=== PATIENT | female | born 1935 | race Caucasian/White ===

== ENCOUNTER 2016-09-08 22:51 | Inpatient (IN) | payer MEDICARE, BC ==
--- NOTE | 2016-09-09 00:41 | EDM.PDOC ---
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 - Related Data Allergies Allergy/AdvReac Type Severity Reaction Status Date / Time cefuroxime Allergy Rash Verified 09/09/16 00:08 ciprofloxacin Allergy Rash Verified 09/09/16 00:08 nifedipine [From Procardia] Allergy Rash Verified 09/09/16 00:08 red dye Allergy Anaphylactic Verified 09/09/16 00:08 Shock Home Meds: Home Meds Aspirin 81 mg PO BEDTIME 09/09/16 [History] Insulin Isophane NPH, Human [NovoLIN N] 8 units SUBCUT ASDIRECTED 09/09/16 [ History] Insulin Regular, Human [NovoLIN R] 10 units SUBCUT ASDIRECTED 09/09/16 [History] Lisinopril/Hydrochlorothiazide [Lisinopril-Hctz 20-12.5 mg Tab] 1 each PO DAILY 09/09/16 [History] Nitroglycerin [Nitrostat] 0.4 mg SL ASDIRECTED PRN 09/09/16 [History] Psyllium Husk [Psyllium Fiber] 0.52 gm PO DAILY 09/09/16 [History] Past Medical History Cardiovascular History: Reports: CAD, Hypertension, MS Gastrointestinal History: Reports: GI Bleed Genitourinary History: Reports: UTI, Recurrent [employer]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 ED EXAM, GENERAL - Physical Exam Exam: See Below Exam Limited By: No Limitations General Appearance: Alert, WD/WN, No Apparent Distress Eye Exam: Bilateral Eye: EOMI Ears: Normal External Exam Nose: Normal Inspection Throat/Mouth: Normal Inspection Head: Atraumatic, Normocephalic Neck: Normal Inspection Respiratory/Chest: No Respiratory Distress, Lungs Clear, Normal Breath Sounds Cardiovascular: Normal Peripheral Pulses, Regular Rate, Rhythm Peripheral Pulses: 2+: Dorsalis Pedis (L), Dorsalis Pedis (R) GI/Abdominal: Normal Bowel Sounds, Other (dark blood) Rectal (Female) Exam: Normal Exam, Normal Rectal Tone, Other (dark liquid blood , no stools) Back Exam: Normal Inspection Extremities: Normal Inspection Neurological: Alert, Oriented, CN II-XII Intact Course - Vital Signs Last Recorded V/S: Last Vital Signs Temp 36.2 C 09/08/16 23:58 Pulse 95 09/08/16 23:58 Resp 16 09/08/16 23:58 BP 196/81 H 09/08/16 23:58 Pulse Ox 100 09/08/16 23:58 - Orders/Labs/Meds Orders: Active Orders 24 hr Category Date Time Status BASIC METABOLIC PANEL,BMP [CHEM] Stat Lab 09/09/16 00:20 Received Labs: Laboratory Tests 09/09/16 09/09/16 Range/Units 00:20 00:20 WBC 8.8 (4.0-11.0) K/uL RBC 4.19 (3.80-5.80) M/uL Hgb 12.0 (11.5-16.5) g/dL Hct 36.2 L (37.0-47.0) % MCV 86 (76-96) fL MCH 28.6 (27.0-32.0) pg MCHC 33.1 (31.0-35.0) g/dL RDW 15.5 (11.0-16.0) % Plt Count 231 (150-500) K/uL MPV 9.0 (6.0-10.0) fL Neut % (Auto) 69.9 (45.0-70.0) % Lymph % (Auto) 19.6 L (20.0-40.0) % [place] % (Auto) 8.4 (3.0-10.0) % Eos % (Auto) 1.9 (1.0-5.0) % Baso % (Auto) 0.2 (0.0-0.5) % Neut # (Auto) 6.12 (2.00-7.50) K/uL Lymph # (Auto) 1.72 (1.50-4.00) K/uL [place] # (Auto) 0.74 (0.20-0.80) K/uL Eos # (Auto) 0.17 (0.04-0.40) K/uL Baso # (Auto) 0.02 (0.02-0.10) K/uL PT 10.3 (9.0-11.5) sec INR 1.0 (1.0-3.5) Departure - Departure Time of Disposition: :20 Disposition: Admitted As Inpatient 66 Condition: Good Clinical Impression: GIB (gastrointestinal bleeding) Qualifiers: GI bleed type/associated pathology: unspecified gastrointestinal hemorrhage type Qualified Code(s): K92.2 - Gastrointestinal hemorrhage, unspecified - Discharge Information Forms: ED Department Discharge - Problem List & Annotations (1) GIB (gastrointestinal bleeding) SNOMED Code(s): 66471164 Code(s): K92.2 - GASTROINTESTINAL HEMORRHAGE, UNSPECIFIED Status: Acute Priority: High Qualifiers: GI bleed type/associated pathology: unspecified gastrointestinal hemorrhage type Qualified Code(s): K92.2 - Gastrointestinal hemorrhage, unspecified - Problem List Review Problem List Initiated/Reviewed/Updated: Yes - My Orders Last 24 Hours: My Active Orders 09/09/16 00:20 BASIC METABOLIC PANEL,BMP [CHEM] Stat - Assessment/Plan Last 24 Hours: My Active Orders 09/09/16 00:20 BASIC METABOLIC PANEL,BMP [CHEM] Stat Plan: Patient to be admitted and monitored closely. Fluids at KVO as we do not want to increase her BP at this time due to the GI bleed. Vitals to be monitored closely. Blood from stools to be measured. Patient NPO tonight and will consider advancing to clear liquids in am if no further bleeding. Hold Aspirin.
[2016-09-09] MEDS ORDERED: Nitroglycerin 0.4 MG Tab.SL SL PRN (00:50)
[2016-09-09] MEDS ORDERED: INSULIN ISOPHANE NPH HUMAN SUBCUT SCH ×2 (01:00→08:00)
[2016-09-09] MEDS ORDERED: Insulin Regular, Human 100 Units/ML 3 ML Vial SUBCUT SCH (01:00)
[2016-09-09] MEDS ORDERED: Sodium Chloride 0.9% 1,000 ML IV SCH (01:30)
[2016-09-09] MEDS ORDERED: Pantoprazole 40 MG Vial IVPUSH SCH ×2 (01:30→08:00)
[2016-09-09] MEDS ORDERED: Non-Formulary Medication 1 Each (Lisinopril/Hydrochlorothiazide [Lisinopril-Hctz 20-12.5 M PO SCH (08:00)
[2016-09-09] MEDS ORDERED: INSULIN REGULAR HUMAN 100 UNIT/ML SUBCUT SCH (08:00)
--- NOTE | 2016-09-09 11:58 | PCM.DCSUM1 ---
Discharge Summary - Hospital Course Brief History: This is an 81yo F with an acute GI bleed that has continued over night and has resulted in a decrease in blood pressure. A 250mL NS bolus was given which stabilzed the BP. Patient does have some symptoms of weakness but denies any SOB or Chest pain. - Discharge Data Discharge Date: 09/09/16 (onel-sunny) Discharge Disposition: DC/Tfer to Acute Hospital 02 Condition: Fair - Discharge Diagnosis/Problem(s) (1) GIB (gastrointestinal bleeding) SNOMED Code(s): 62440017 ICD Code: K92.2 - GASTROINTESTINAL HEMORRHAGE, UNSPECIFIED Status: Acute Priority: High Current Visit: Yes Qualifiers: GI bleed type/associated pathology: unspecified gastrointestinal hemorrhage type Qualified Code(s): K92.2 - Gastrointestinal hemorrhage, unspecified - Patient Instructions Diet: NPO Activity: Rest and Relax Today - Discharge Plan Home Medications: Home Meds Aspirin 81 mg PO BEDTIME 09/09/16 [History] Insulin Isophane NPH, Human [NovoLIN N] 8 units SUBCUT ASDIRECTED 09/09/16 [ History] Insulin Regular, Human [NovoLIN R] 10 units SUBCUT ASDIRECTED 09/09/16 [History] Lisinopril/Hydrochlorothiazide [Lisinopril-Hctz 20-12.5 mg Tab] 1 each PO DAILY 09/09/16 [History] Nitroglycerin [Nitrostat] 0.4 mg SL ASDIRECTED PRN 09/09/16 [History] Psyllium Husk [Psyllium Fiber] 0.52 gm PO DAILY 09/09/16 [History] Forms: ED Department Discharge Referrals: PCP,None [Primary Care Provider] - - Discharge Summary/Plan Comment DC Time >30 min.: Yes Discharge Summary/Plan Comment: Patient transfer to [facility] for further surgical/GI management. Counseled on indications and answered all family and patient questions. Patient and family agree with plan of care. - Patient Data Vitals - Most Recent: Last Vital Signs Temp 36.6 C 09/09/16 11:00 Pulse 77 09/09/16 11:00 Resp 20 09/09/16 11:00 BP 119/34 L 09/09/16 11:00 Pulse Ox 100 09/09/16 11:00 Weight - Most Recent: 104.145 kg I&O - Last 24 hours: Intake & Output 09/08/16 09/09/16 09/09/16 22:59 06:59 14:59 Output Total 500 Balance -500 Lab Results - Last 24 hrs: Laboratory Results - last 24 hr 09/09/16 09/09/16 Range/Units 06:47 08:45 WBC 6.2 D (4.0-11.0) K/uL RBC 3.70 L (3.80-5.80) M/uL Hgb 10.7 L (11.5-16.5) g/dL Hct 32.3 L (37.0-47.0) % MCV 87 (76-96) fL MCH 28.9 (27.0-32.0) pg MCHC 33.1 (31.0-35.0) g/dL RDW 15.6 (11.0-16.0) % Plt Count 223 (150-500) K/uL MPV 9.4 (6.0-10.0) fL Neut % (Auto) 59.2 (45.0-70.0) % Lymph % (Auto) 29.7 (20.0-40.0) % [place] % (Auto) 8.7 (3.0-10.0) % Eos % (Auto) 1.9 (1.0-5.0) % Baso % (Auto) 0.5 (0.0-0.5) % Neut # (Auto) 3.66 (2.00-7.50) K/uL Lymph # (Auto) 1.84 (1.50-4.00) K/uL [place] # (Auto) 0.54 (0.20-0.80) K/uL Eos # (Auto) 0.12 (0.04-0.40) K/uL Baso # (Auto) 0.03 (0.02-0.10) K/uL POC Glucose 192 H (74-110) mg/dL Med Orders - Current: Current Medications Sodium Chloride (Normal Saline) 1,000 mls @ 0 mls/hr IV ASDIRECTED [facility] PRN Reason: KVO Insulin Human Regular (Humulin R) 10 unit SUBCUT BID@0800,1700 [facility] PRN Reason: Protocol Last Admin: 09/09/16 08:15 Dose: Not Given Nitroglycerin (Nitrostat) 0.4 mg SL ASDIRECTED PRN PRN Reason: Chest Pain Non-Formulary Medication (Insulin Isophane Nph, Human [Novolin N]) 8 units SUBCUT ASDIRECTED [facility] Non-Formulary Medication (Lisinopril/Hydrochlorothiazide [Lisinopril-Hctz 20- 12.5 Mg Tab]) 1 each PO DAILY [facility] Last Admin: 09/09/16 08:14 Dose: Not Given Non-Formulary Medication (Insulin Isophane Nph, Human [Novolin N]) 8 units SUBCUT BID@0800,1700 [facility] Last Admin: 09/09/16 08:15 Dose: Not Given Pantoprazole Sodium (Protonix Iv) 40 mg IVPUSH Q12H [facility] Last Admin: 09/09/16 07:58 Dose: 40 mg Discontinued Medications Insulin Human Regular (Humulin R) 10 unit SUBCUT ASDIRECTED [facility]Y PRN Reason: Protocol Pantoprazole Sodium (Protonix Iv) 40 mg IVPUSH Q12H [facility] Last Admin: 09/09/16 02:15 Dose: 40 mg *Q Meaningful Use (DIS) - VTE *Q VTE Criteria *Q: - Stroke *Q Stroke Criteria *Q: - AMI *Q AMI Criteria *Q:
[2016-09-09 13:23] VITALS: BP 161/45
== END 2016-09-09 13:15 | DRG 379 ==
LOC: LB.ED 22:51 → LB.MS 09-09 00:44 → UNDOADMIN 09-09 00:57 → LB.MS 09-09 00:57
PROVIDERS: ADMIT Family Medicine; ATTEND Family Medicine
DX: K92.2 Gastrointestinal hemorrhage, unspecified (principal); I10 Essential (primary) hypertension; I25.10 Atherosclerotic heart disease of native coronary artery without angina pectoris; E11.9 Type 2 diabetes mellitus without complications; Z79.4 Long term (current) use of insulin; I25.2 Old myocardial infarction; Z87.440 Personal history of urinary (tract) infections; M19.90 Unspecified osteoarthritis, unspecified site; Z85.42 Personal history of malignant neoplasm of other parts of uterus; Z79.82 Long term (current) use of aspirin; Z88.1 Allergy status to other antibiotic agents; Z91.041 Radiographic dye allergy status; Z88.8 Allergy status to other drugs, medicaments and biological substances; I95.9 Hypotension, unspecified
CPT/HCPCS: 36415; 80048; 82962; 85025; 85610; 86850; 86900; 86901; 86920; 86922; 99285; A0425; A0429; C9113

== ENCOUNTER 2016-10-17 03:42 | Emergency (ER) | payer MEDICARE, BC ==
[~2016-10-17 03:42] MED LIST: ALPRAZolam 0.25 MG Tab PO ONE
--- NOTE | 2016-10-17 04:38 | EDM.PDOC ---
ED HPI GENERAL MEDICAL PROBLEM - General Chief Complaint: Chest Pain Stated Complaint: CHEST PAIN Time Seen by Provider: 10/17/16 03:45 Source of Information: Reports: Patient, Family History Limitations: Reports: No Limitations - History of Present Illness INITIAL COMMENTS - FREE TEXT/NARRATIVE: This is an 81yo F here for complaints of chest pain. Patient states the pain is under her left breast. She has had recent cardiac workup and is pending an EGD and if clear will go for heart stenting in [place]. Patient states she has felt shortness of breath sometimes but not currently and has had a fast heart rate for the past week especially since her passed last . Daughter states that she has been diagnosed with A-fib and is not on any blood thinners due to her recent GI bleed. Daughter states her heart rate has been around this range since her prior workup. Patient does have prior CT history in the 's. Patient denies any current sob or lightheadedness but does state she is anxious and stressed as she is planning her husbands . Onset: Gradual Duration: Day(s):, Getting Worse, Intermittent Location: Reports: Chest Quality: Reports: Sharp Severity: Mild Improves with: Reports: None Worsens with: Reports: Movement Associated Symptoms: Reports: No Other Symptoms Left Lower Chest Pain Score (Numeric/FACES): 8 - Related Data Allergies Allergy/AdvReac Type Severity Reaction Status Date / Time cefuroxime Allergy Rash Verified 10/17/16 04:07 ciprofloxacin Allergy Rash Verified 10/17/16 04:07 nifedipine [From Procardia] Allergy Rash Verified 10/17/16 04:07 red dye Allergy Anaphylactic Verified 10/17/16 04:08 Shock Home Meds: Home Meds Aspirin 81 mg PO BEDTIME 09/09/16 [History] Insulin Isophane NPH, Human [NovoLIN N] 8 units SUBCUT ASDIRECTED 09/09/16 [ History] Insulin Regular, Human [NovoLIN R] 10 units SUBCUT ASDIRECTED 09/09/16 [History] Lisinopril/Hydrochlorothiazide [Lisinopril-Hctz 20-12.5 mg Tab] 1 each PO DAILY 09/09/16 [History] Nitroglycerin [Nitrostat] 0.4 mg SL ASDIRECTED PRN 09/09/16 [History] Psyllium Husk [Psyllium Fiber] 0.52 gm PO DAILY 09/09/16 [History] Past Medical History Cardiovascular History: Reports: CAD, Hypertension, CT Gastrointestinal History: Reports: GI Bleed Genitourinary History: Reports: UTI, 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 ED EXAM, GENERAL - Physical Exam Exam: See Below Exam Limited By: No Limitations General Appearance: Alert, WD/WN, No Apparent Distress Eye Exam: Bilateral Eye: EOMI, PERRL Ears: Normal External Exam Nose: Normal Inspection Throat/Mouth: Normal Inspection Head: Atraumatic, Normocephalic Neck: Normal Inspection Respiratory/Chest: No Respiratory Distress, Lungs Clear, Rhonchi Cardiovascular: Irregularly Irregular Peripheral Pulses: 2+: Dorsalis Pedis (L), Dorsalis Pedis (R) GI/Abdominal: Normal Bowel Sounds Neurological: Alert, Oriented, CN II-XII Intact Psychiatric: Anxious Skin Exam: Warm, Dry, Intact Course - Vital Signs Last Recorded V/S: Last Vital Signs Temp Pulse Resp BP Pulse Ox 98 10/17/16 04:11 - Orders/Labs/Meds Labs: Laboratory Tests 10/17/16 10/17/16 Range/Units 04:10 04:10 WBC 8.6 D (4.0-11.0) K/uL RBC 3.73 L (3.80-5.80) M/uL Hgb 10.4 L (11.5-16.5) g/dL Hct 32.1 L (37.0-47.0) % MCV 86 (76-96) fL MCH 27.9 (27.0-32.0) pg MCHC 32.4 (31.0-35.0) g/dL RDW 15.5 (11.0-16.0) % Plt Count 215 (150-500) K/uL MPV 9.7 (6.0-10.0) fL Neut % (Auto) 69.5 (45.0-70.0) % Lymph % (Auto) 19.4 L (20.0-40.0) % [place] % (Auto) 10.3 H (3.0-10.0) % Eos % (Auto) 0.5 L (1.0-5.0) % Baso % (Auto) 0.3 (0.0-0.5) % Neut # (Auto) 5.99 (2.00-7.50) K/uL Lymph # (Auto) 1.67 (1.50-4.00) K/uL [place] # (Auto) 0.89 H (0.20-0.80) K/uL Eos # (Auto) 0.04 (0.04-0.40) K/uL Baso # (Auto) 0.03 (0.02-0.10) K/uL Sodium 136 (136-145) mmol/L Potassium 3.8 (3.5-5.1) mmol/L Chloride 100 (98-107) mmol/L Carbon Dioxide 24.0 (21.0-32.0) mmol/L Anion Gap 15.8 H (5.0-15.0) mmol/L BUN 20 (8-26) mg/dL Creatinine 1.01 (0.55-1.02) mg/dL Est Cr Clr Drug Dosing TNP Estimated GFR (MDRD) 52 L (>60) MLS/MIN BUN/Creatinine Ratio 19.8 (6-25) Glucose 194 H (74-100) mg/dL Calcium 8.6 (8.5-10.1) mg/dL Troponin I < 0.017 (0.000-0.060) ng/mL Departure - Departure Time of Disposition: 05:15 Disposition: Home, Self-Care 01 Condition: Good Clinical Impression: History of CT (myocardial infarction), Grieving Intercostal muscle strain Qualifiers: Encounter type: initial encounter Qualified Code(s): S29.011A - Strain of muscle and tendon of front wall of thorax, initial encounter Atrial fibrillation Qualifiers: Atrial fibrillation type: chronic Qualified Code(s): I48.2 - Chronic atrial fibrillation Instructions: Nonspecific Chest Pain, [id number], Pleurodynia Forms: ED Department Discharge - Problem List Review Problem List Initiated/Reviewed/Updated: Yes - Assessment/Plan Plan: Counseled on continue f/u with providers from [place] as scheduled. Discussed negative labs and anemia. Discussed continue monitoring for further symptoms. Discussed intercostal muscle pain and rest and relax at home. F/u as needed in ER. Continue current medications as prescribed without changes.
[2016-10-17 07:49] VITALS: BP 121/56
== END 2016-10-17 05:05 | disposition home or self-care (01) ==
LOC: LB.ED 03:42
DX: S29.011A Strain of muscle and tendon of front wall of thorax, initial encounter (principal); I48.2 Chronic atrial fibrillation; I25.10 Atherosclerotic heart disease of native coronary artery without angina pectoris; M19.90 Unspecified osteoarthritis, unspecified site; E11.9 Type 2 diabetes mellitus without complications; I10 Essential (primary) hypertension; I25.2 Old myocardial infarction; Z88.8 Allergy status to other drugs, medicaments and biological substances; Z79.82 Long term (current) use of aspirin; Z79.4 Long term (current) use of insulin; Z79.899 Other long term (current) drug therapy; Z87.440 Personal history of urinary (tract) infections; X58.XXXA Exposure to other specified factors, initial encounter
CPT/HCPCS: 36415; 80048; 84484; 85025; 93005; 99284; 99285; A9270

== ENCOUNTER 2016-10-31 14:53 | Inpatient (IN) | payer MEDICARE, BC ==
--- NOTE | 2016-10-31 15:31 | EDM.PDOC ---
ED HPI GENERAL MEDICAL PROBLEM - General Chief Complaint: Gastrointestinal Problem Stated Complaint: blood to stool and weakness Time Seen by Provider: 10/31/16 15:15 Source of Information: Reports: Patient, Family History Limitations: Reports: No Limitations - History of Present Illness INITIAL COMMENTS - FREE TEXT/NARRATIVE: This 81 yr female presents with weakness, blood to stool, and daughter states some change in mentation. Daughter states stent placement to 1 cardiac artery. States history of bleeding ulcer about 1 week ago, when this stopped, she had her cardiac stent placement 10-30-2016 at 1147. She was on her way home and got in drive and daughter noted blood to stool coming from depends and she came to ER at this time. Pt is alert and weak. Heart rate on monitor shows 94 with sinus arrhythmia. 330 Lab ordered: CMP, CBC, PT/INR, IV ordered Nacl @100cc/hr. Onset Date: 10/31/16 Onset Time: 15:00 Associated Symptoms: Reports: Other ("heavy breathing", per daughter) - Related Data Allergies Allergy/AdvReac Type Severity Reaction Status Date / Time cefuroxime Allergy Rash Verified 10/17/16 04:07 ciprofloxacin Allergy Rash Verified 10/17/16 04:07 glipizide Allergy Other Verified 10/31/16 15:23 iodine Allergy Hives Verified 10/31/16 15:23 nifedipine [From Procardia] Allergy Rash Verified 10/17/16 04:07 omeprazole [From Prilosec] Allergy Other Verified 10/31/16 15:23 red dye Allergy Anaphylactic Verified 10/17/16 04:08 Shock Home Meds: Home Meds Insulin Isophane NPH, Human [NovoLIN N] 8 units SUBCUT BID 09/09/16 [History] Insulin Regular, Human [NovoLIN R] 10 units SUBCUT ASDIRECTED 09/09/16 [History] Lisinopril/Hydrochlorothiazide [Lisinopril-Hctz 20-12.5 mg Tab] 12.5 - 20 each PO DAILY 09/09/16 [History] Aspirin [Lite Coat Aspirin] 325 mg PO DAILY 10/31/16 [History] Clopidogrel Bisulfate [Clopidogrel] 75 mg PO DAILY 10/31/16 [History] Cyanocobalamin (Vitamin B-12) [B-12] 2,500 mg PO DAILY 10/31/16 [History] Ferrous Sulfate [Iron] 325 mg PO BID 10/31/16 [History] Insulin NPH Human Isophane [Humulin N Kwikpen] 10 units SQ BID 10/31/16 [History ] Isosorbide Mononitrate [Isosorbide Mononitrate ER] 30 mg PO DAILY 10/31/16 [ History] Lutein/Minerals/Vit A,C & E [Ocuvite] 1 tab PO DAILY 10/31/16 [History] Magnesium Oxide [Magnesium] 400 mg PO DAILY 10/31/16 [History] Metoprolol Succinate [Toprol XL 100mg] 100 mg PO DAILY 10/31/16 [History] Multivitamin [Super Multivitamin] 1 each PO DAILY 10/31/16 [History] Nitroglycerin 0.4 mg SL ASDIRECTED PRN 10/31/16 [History] Pantoprazole [ProTONIX] 40 mg PO DAILY 10/31/16 [History] atorvaSTATin [Lipitor] 40 mg PO BEDTIME 10/31/16 [History] traMADol [Ultram] 50 mg PO DAILY 10/31/16 [History] Past Medical History Cardiovascular History: Reports: CAD, Hypertension, [place] Gastrointestinal History: Reports: GI Bleed Genitourinary History: Reports: UTI, Recurrent [employer] History: Reports: Musculoskeletal History: Reports: Osteoarthritis Endocrine/Metabolic History: Reports: IDDM Hematologic History: Reports: Anemia, Blood Transfusion(s) Oncologic (Cancer) History: Reports: Metastatic, Uterine - Past Surgical History Oncologic Surgical History: Reports: None Social & Family History - Tobacco Use Smoking Status *Q: Never Smoker Second Hand Smoke Exposure: No - Caffeine Use Caffeine Use: Reports: Tea - Recreational Drug Use Recreational Drug Use: No ED ROS GENERAL - Review of Systems Review Of Systems: See Below Constitutional: Reports: Weakness HEENT: Reports: No Symptoms Respiratory: Reports: Other (labored breathing, daughter states may be from medicine given at [place]) Cardiovascular: Reports: Dyspnea on Exertion Endocrine: Reports: Other (diabetic) GI/Abdominal: Reports: Diarrhea, Hematochezia, Other (Recent GI bleed) : Reports: Incontinence Musculoskeletal: Reports: No Symptoms Psychiatric: Reports: No Symptoms Hematologic/Lymphatic: Reports: Easy Bleeding ED EXAM, GI/ABD - Physical Exam Exam: See Below Exam Limited By: No Limitations General Appearance: Alert, No Apparent Distress, Lethargic Eyes: Bilateral: Normal Appearance Ears: Normal External Exam Nose: Normal Inspection Throat/Mouth: No Airway Compromise Head: Atraumatic, Normocephalic Neck: Normal Inspection, Non-Tender Respiratory/Chest: No Respiratory Distress, Lungs Clear Cardiovascular: Normal Peripheral Pulses, Other GI/Abdominal Exam: Normal Bowel Sounds, Soft, No Distention, Tender (Female) Exam: Deferred Extremities: Normal Capillary Refill, Pedal Edema Neurological: Alert, Normal Cognition Psychiatric: Normal Affect Skin Exam: Warm, Dry, Normal Color Course - Vital Signs Last Recorded V/S: Last Vital Signs Temp 98.0 F 10/31/16 15:53 Pulse 90 10/31/16 15:53 Resp BP 102/55 L 10/31/16 15:53 Pulse Ox 99 10/31/16 15:53 - Orders/Labs/Meds Orders: Active Orders 24 hr Category Date Time Status Sodium Chloride 0.9% [Normal Saline] 1,000 ml Med 10/31/16 15:30 Active IV ASDIRECTED Medication Orders Atorvastatin Calcium (Lipitor) 40 mg PO BEDTIME [facility] Clopidogrel Bisulfate (Plavix) 75 mg PO DAILY [facility] Ferrous Sulfate (Ferrous Sulfate) 325 mg PO BID [facility] Sodium Chloride (Normal Saline) 1,000 mls @ 100 mls/hr IV ASDIRECTED [facility] Last Admin: 10/31/16 16:02 Dose: 100 mls/hr Pantoprazole Sodium 80 mg/ (Sodium Chloride) 100 mls @ 200 mls/hr IV Q24H [facility] Isosorbide Mononitrate (Imdur) 30 mg PO DAILY [facility] Metoprolol Succinate (Toprol Xl) 100 mg PO DAILY [facility] Multivitamins/Minerals (Ocuvite) 1 each PO DAILY [facility] Nitroglycerin (Nitrostat) 0.4 mg SL ASDIRECTED PRN PRN Reason: Chest Pain Non-Formulary Medication (Cyanocobalamin (Vitamin B-12) [B-12]) 2,500 mg PO DAILY [facility] Non-Formulary Medication (Insulin Nph Human Isophane [Humulin N Kwikpen]) 10 units SQ BID [facility] Non-Formulary Medication (Magnesium Oxide [Magnesium]) 400 mg PO DAILY [facility] Non-Formulary Medication (Multivitamin [Super Multivitamin]) 1 each PO DAILY [facility] Sodium Chloride (Saline Flush) 10 ml FLUSH ASDIRECTED PRN PRN Reason: Keep Vein Open Tramadol HCl (Ultram) 50 mg PO DAILY [facility] Labs: Laboratory Tests 10/31/16 10/31/16 10/31/16 Range/Units 15:35 15:35 15:35 WBC 6.6 D (4.0-11.0) K/uL RBC 3.96 (3.80-5.80) M/uL Hgb 10.9 L (11.5-16.5) g/dL Hct 34.6 L (37.0-47.0) % MCV 87 (76-96) fL MCH 27.5 (27.0-32.0) pg MCHC 31.5 (31.0-35.0) g/dL RDW 16.4 H (11.0-16.0) % Plt Count 283 D (150-500) K/uL MPV 9.5 (6.0-10.0) fL Neut % (Auto) 66.5 (45.0-70.0) % Lymph % (Auto) 24.2 (20.0-40.0) % [place] % (Auto) 8.3 (3.0-10.0) % Eos % (Auto) 0.5 L (1.0-5.0) % Baso % (Auto) 0.5 (0.0-0.5) % Neut # (Auto) 4.41 (2.00-7.50) K/uL Lymph # (Auto) 1.60 (1.50-4.00) K/uL [place] # (Auto) 0.55 (0.20-0.80) K/uL Eos # (Auto) 0.03 L (0.04-0.40) K/uL Baso # (Auto) 0.03 (0.02-0.10) K/uL PT 10.8 (9.0-11.5) sec INR 1.1 (1.0-3.5) APTT 20.1 L (27.0-35.0) SECONDS Sodium 138 (136-145) mmol/L Potassium 4.1 (3.5-5.1) mmol/L Chloride 103 (98-107) mmol/L Carbon Dioxide 26.0 (21.0-32.0) mmol/L Anion Gap 13.1 (5.0-15.0) mmol/L BUN 19 (8-26) mg/dL Creatinine 1.24 H D (0.55-1.02) mg/dL Est Cr Clr Drug Dosing 33.43 mL/min Estimated GFR (MDRD) 41 L (>60) MLS/MIN BUN/Creatinine Ratio 15.3 (6-25) Glucose 224 H (74-100) mg/dL Calcium 8.8 (8.5-10.1) mg/dL Total Bilirubin 0.3 (0.0-1.0) mg/dL AST 23 (15-37) U/L ALT 24 (12-78) U/L Alkaline Phosphatase 84 (46-116) U/L Total Protein 7.0 (6.4-8.2) g/dL Albumin 3.3 L (3.4-5.0) g/dL Globulin 3.7 (2.2-4.2) g/dL Albumin/Globulin Ratio 0.9 (0.8-2.0) Meds: Medications Generic Name Dose Route Start Last Admin Trade Name Freq PRN Reason Stop Dose Admin Atorvastatin Calcium 40 mg 10/31/16 20:00 Lipitor PO BEDTIME [facility] Clopidogrel Bisulfate 75 mg 11/01/16 08:00 Plavix PO DAILY [facility] Ferrous Sulfate 325 mg 11/01/16 08:00 Ferrous Sulfate PO BID [facility] Sodium Chloride 1,000 mls @ 100 mls/hr 10/31/16 15:30 10/31/16 16:02 Normal Saline IV 100 mls/hr ASDIRECTED AMY Administration Pantoprazole Sodium 80 mg/ 100 mls @ 200 mls/hr 11/01/16 08:00 Sodium Chloride IV Q24H [facility] Isosorbide Mononitrate 30 mg 11/01/16 08:00 Imdur PO DAILY [facility] Metoprolol Succinate 100 mg 11/01/16 08:00 Toprol Xl PO DAILY [facility] Multivitamins/Minerals 1 each 11/01/16 08:00 Ocuvite PO DAILY [facility] Nitroglycerin 0.4 mg 10/31/16 17:04 Nitrostat SL ASDIRECTED PRN Chest Pain Non-Formulary Medication 2,500 mg 11/01/16 08:00 Cyanocobalamin (Vitamin B-12) [B-12] PO DAILY [facility] Non-Formulary Medication 10 units 10/31/16 20:00 Insulin Nph Human Isophane [Humulin N Kwikpen] SQ BID AMY Non-Formulary Medication 400 mg 11/01/16 08:00 Magnesium Oxide [Magnesium] PO DAILY [facility] Non-Formulary Medication 1 each 11/01/16 08:00 Multivitamin [Super Multivitamin] PO DAILY [facility] Sodium Chloride 10 ml 10/31/16 16:58 Saline Flush FLUSH ASDIRECTED PRN Keep Vein Open Tramadol HCl 50 mg 11/01/16 08:00 Ultram PO DAILY AMY Discontinued Medications Generic Name Dose Route Start Last Admin Trade Name Freq PRN Reason Stop Dose Admin Pantoprazole Sodium Confirm 10/31/16 15:57 10/31/16 16:02 Protonix Iv Administered 10/31/16 15:58 40 mg Dose Administration 40 mg .ROUTE .STK-MED ONE Departure - Departure Time of Disposition: 17:00 Disposition: Admitted As Inpatient 64 Condition: Fair Clinical Impression: Diarrhea GIB (gastrointestinal bleeding) Qualifiers: GI bleed type/associated pathology: unspecified gastrointestinal hemorrhage type Qualified Code(s): K92.2 - Gastrointestinal hemorrhage, unspecified - Discharge Information ED Communication - Discussed Case With (1) Discussed Case With (1): Patient, Other (daughter) - Conversation Summary Summary Comment: [address]iscuss[address] pt case with Dr Chantal MD, back-up accounting consultant. Assessment completed with consult of Dr Cornejo. Discussion with pt and daughter of pt status with GI bleed and weakness, will admit to inpatient. IV fluids, medications as ordered, ASA on hold, continue with insulin, clear fluids. Pt and daughter in agreeement with plan of admission. - My Orders Last 24 Hours: My Active Orders 10/31/16 15:30 Sodium Chloride 0.9% [Normal Saline] 1,000 ml IV ASDIRECTED - Assessment/Plan Last 24 Hours: My Active Orders 10/31/16 15:30 Sodium Chloride 0.9% [Normal Saline] 1,000 ml IV ASDIRECTED
[2016-10-31] MEDS ORDERED: Pantoprazole 40 MG Vial ONE (15:57)
[2016-10-31] MEDS: Sodium Chloride 0.9% 1,000 ML IV SCH (16:02)
[2016-10-31] MEDS ORDERED: Sodium Chloride 0.9% 10 ML Syringe FLUSH PRN (16:58)
[2016-10-31] MEDS ORDERED: Nitroglycerin 0.4 MG Tab.SL SL PRN (17:04)
[2016-10-31] MEDS ORDERED: Pantoprazole 40 MG Vial IVPUSH ONE (18:16)
[2016-10-31] MEDS: atorvaSTATin 40 MG Tab PO SCH (21:35)
[2016-10-31] MEDS: INSULIN NPH HUMAN ISOPHANE SQ SCH (22:09)
[2016-10-31] MEDS: Octreotide 50 MCG/1 ML Amp IVPUSH SCH (22:21)
[2016-11-01] MEDS: Sodium Chloride 0.9% 1,000 ML IV SCH (00:52)
[2016-11-01] MEDS ORDERED: Lutein/Minerals/Vitamins A, C & E Tab PO SCH (08:00)
[2016-11-01] MEDS ORDERED: Non-Formulary Medication 1 Each (Magnesium Oxide [Magnesium] 400 MG) PO SCH (08:00)
[2016-11-01] MEDS ORDERED: MULTIVITAMIN PO SCH (08:00)
[2016-11-01] MEDS ORDERED: CYANOCOBALAMIN PO SCH (08:00)
[2016-11-01] MEDS: Isosorbide Mononitrate 30 MG Tab.ER PO SCH (08:24)
[2016-11-01] MEDS: Metoprolol Succinate 100 MG Tab.ER PO SCH (08:24)
[2016-11-01] MEDS: traMADol 50 MG Tab PO SCH (08:25)
[2016-11-01] MEDS: Magnesium Oxide 400 MG Tab PO SCH (08:25)
[2016-11-01] MEDS: Ferrous Sulfate 325 MG Tab PO SCH ×2 (08:25→20:14)
[2016-11-01] MEDS: Multivitamins with Iron/Calcium/Folic Acid/Minerals Tab PO SCH (08:25)
[2016-11-01] MEDS: Clopidogrel 75 MG Tab PO SCH (08:27)
[2016-11-01] MEDS: Cyanocobalamin (Vitamin B12) 1,000 MCG Tab PO SCH (08:27)
[2016-11-01] MEDS: INSULIN NPH HUMAN ISOPHANE SQ SCH (08:27)
[2016-11-01] MEDS: Octreotide 50 MCG/1 ML Amp IVPUSH SCH ×2 (08:28→20:00)
[2016-11-01] MEDS: Pantoprazole 80 MG in Sodium Chloride 0.9% 100 ML IV SCH (08:40)
--- NOTE | 2016-11-01 08:42 | PCM.PN ---
- General Info Date of Service: 11/01/16 Admission Dx/Problem (Free Text): This 81 yr female presented with blood in her stool and weakness yesterday, to the ER. Her daughter was bringing her back from [facility] post cardiac stent. Subjective Update: Pt states she slept well and no more loose stools and no more bleeding noted. States her abdomen feels good today and a little hungry. States she has been up walking some, but continues with weakness. Functional Status: Reports: Pain Controlled, Ambulating, Urinating - Review of Systems General: Reports: Weakness. Denies: Fever Gastrointestinal: Denies: Abdominal Pain, Diarrhea, Hematochezia, Nausea, Vomiting - Patient Data Vitals - Most Recent: Last Vital Signs Temp 97.4 F 11/01/16 04:00 Pulse 90 11/01/16 08:24 Resp 20 11/01/16 04:00 BP 122/62 11/01/16 08:24 Pulse Ox 99 11/01/16 04:00 Weight - Most Recent: 220 lb I&O - Last 24 Hours: Intake & Output 10/31/16 11/01/16 11/01/16 22:59 06:59 14:59 Intake Total 1615 Output Total 400 Balance 1215 Lab Results Last 24 Hours: Laboratory Results - last 24 hr 11/01/16 11/01/16 Range/Units 07:15 07:15 WBC 6.1 (4.0-11.0) K/uL RBC 4.15 (3.80-5.80) M/uL Hgb 11.5 (11.5-16.5) g/dL Hct 36.1 L (37.0-47.0) % MCV 87 (76-96) fL MCH 27.7 (27.0-32.0) pg MCHC 31.9 (31.0-35.0) g/dL RDW 16.3 H (11.0-16.0) % Plt Count 271 (150-500) K/uL MPV 9.6 (6.0-10.0) fL Neut % (Auto) 61.9 (45.0-70.0) % Lymph % (Auto) 27.7 (20.0-40.0) % [place] % (Auto) 9.1 (3.0-10.0) % Eos % (Auto) 0.8 L (1.0-5.0) % Baso % (Auto) 0.5 (0.0-0.5) % Neut # (Auto) 3.76 (2.00-7.50) K/uL Lymph # (Auto) 1.68 (1.50-4.00) K/uL [place] # (Auto) 0.55 (0.20-0.80) K/uL Eos # (Auto) 0.05 (0.04-0.40) K/uL Baso # (Auto) 0.03 (0.02-0.10) K/uL Sodium 143 (136-145) mmol/L Potassium 4.0 (3.5-5.1) mmol/L Chloride 107 (98-107) mmol/L Carbon Dioxide 26.2 (21.0-32.0) mmol/L Anion Gap 13.8 (5.0-15.0) mmol/L BUN 14 D (8-26) mg/dL Creatinine 1.00 (0.55-1.02) mg/dL Est Cr Clr Drug Dosing 41.45 mL/min Estimated GFR (MDRD) 53 L (>60) MLS/MIN BUN/Creatinine Ratio 14.0 (6-25) Glucose 124 H D (74-100) mg/dL Calcium 8.7 (8.5-10.1) mg/dL Med Orders - Current: Current Medications Atorvastatin Calcium (Lipitor) 40 mg PO BEDTIME [facility] Last Admin: 10/31/16 21:35 Dose: 40 mg Clopidogrel Bisulfate (Plavix) 75 mg PO DAILY [facility] Last Admin: 11/01/16 08:27 Dose: 75 mg Cyanocobalamin (Vitamin B12) 2,500 mcg PO DAILY [facility] Last Admin: 11/01/16 08:27 Dose: 2,500 mcg Ferrous Sulfate (Ferrous Sulfate) 325 mg PO BID [facility] Last Admin: 11/01/16 08:25 Dose: 325 mg Sodium Chloride (Normal Saline) 1,000 mls @ 100 mls/hr IV ASDIRECTED [facility] Last Admin: 11/01/16 00:52 Dose: 100 mls/hr Pantoprazole Sodium 80 mg/ (Sodium Chloride) 100 mls @ 200 mls/hr IV Q24H [facility] Insulin Human NPH (Humulin N) 10 unit SUBCUT BID [facility] Isosorbide Mononitrate (Imdur) 30 mg PO DAILY [facility] Last Admin: 11/01/16 08:24 Dose: 30 mg Magnesium Oxide (Magnesium Oxide) 400 mg PO DAILY [facility] Last Admin: 11/01/16 08:25 Dose: 400 mg Metoprolol Succinate (Toprol Xl) 100 mg PO DAILY [facility] Last Admin: 11/01/16 08:24 Dose: 100 mg Multivitamins/Minerals (Thera M Plus) 1 tab PO DAILY [facility] Last Admin: 11/01/16 08:25 Dose: 1 tab Nitroglycerin (Nitrostat) 0.4 mg SL ASDIRECTED PRN PRN Reason: Chest Pain Octreotide Acetate (Sandostatin) 50 mcg IVPUSH BID [facility] Last Admin: 11/01/16 08:28 Dose: 50 mcg Sodium Chloride (Saline Flush) 10 ml FLUSH ASDIRECTED PRN PRN Reason: Keep Vein Open Tramadol HCl (Ultram) 50 mg PO DAILY [facility] Last Admin: 11/01/16 08:25 Dose: 50 mg Discontinued Medications Multivitamins/Minerals (Ocuvite) 1 each PO DAILY [facility] Non-Formulary Medication (Insulin Nph Human Isophane [Humulin N Kwikpen]) 10 units SQ BID [facility] Last Admin: 11/01/16 08:27 Dose: 10 units Pantoprazole Sodium (Protonix Iv) Confirm Administered Dose 40 mg .ROUTE .STK -MED ONE Stop: 10/31/16 15:58 Last Admin: 10/31/16 16:02 Dose: 40 mg Pantoprazole Sodium (Protonix Iv) 40 mg IVPUSH ONETIME ONE Stop: 10/31/16 18:17 Last Admin: 10/31/16 18:19 Dose: Not Given - Exam General: Alert, Oriented Lungs: Clear to Auscultation, Decreased Breath Sounds Cardiovascular: Regular Rate GI/Abdominal Exam: Normal Bowel Sounds, Soft, Non-Tender, No Distention. No: Rigid, Tender Extremities: Normal Capillary Refill, Pedal Edema. No: Joint Swelling, Leg Pain , Increased Warmth Peripheral Pulses: 2+: Dorsalis Pedis (L), Dorsalis Pedis (R) Skin: Warm, Dry, Intact Psy/Mental Status: Alert, Normal Affect - Problem List & Annotations (1) GIB (gastrointestinal bleeding) SNOMED Code(s): 01754315 Code(s): K92.2 - GASTROINTESTINAL HEMORRHAGE, UNSPECIFIED Status: Acute Priority: High Current Visit: Yes Onset Date: ~10/31/16 Qualifiers: GI bleed type/associated pathology: unspecified gastrointestinal hemorrhage type Qualified Code(s): K92.2 - Gastrointestinal hemorrhage, unspecified - Problem List Review Problem List Initiated/Reviewed/Updated: Yes - My Orders Last 24 Hours: My Active Orders 10/31/16 16:58 Patient Status [ADT] Routine Blood Glucose Check, Bedside [RC] 08,12,17,20 Oxygen Therapy [RC] PRN Up With Assistance [RC] ASDIRECTED VTE/DVT Education [RC] Per Unit Routine Vital Signs [RC] Q4H Sodium Chloride 0.9% [Saline Flush] 10 ml FLUSH ASDIRECTED PRN Peripheral IV Insertion Adult [OM.PC] Routine 10/31/16 17:04 Nitroglycerin [Nitrostat] 0.4 mg SL ASDIRECTED PRN 10/31/16 20:00 Octreotide [SandoSTATIN] 50 mcg IVPUSH BID atorvaSTATin [Lipitor] 40 mg PO BEDTIME 10/31/16 Dinner Clear Liquid Diet [DIET] 11/01/16 05:11 Abdomen 1V Flat [CR] AM 11/01/16 08:00 Clopidogrel [Plavix] 75 mg PO DAILY Ferrous Sulfate 325 mg PO BID Isosorbide Mononitrate [Imdur] 30 mg PO DAILY Metoprolol Succinate [Toprol XL] 100 mg PO DAILY Pantoprazole [ProTONIX IV] 80 mg Sodium Chloride 0.9% [Normal Saline] 100 ml IV Q24H traMADol [Ultram] 50 mg PO DAILY - Assessment Assessment:: Weakness continues and decrease bowel sounds. Pt is alert and states she has ambulated in the room today. She is taking water with her medications and hasn' t ate since yesterday. She is getting her am insulin and will have clear liquids for the am. - Plan Plan:: No more loose stools since last evening. No abdominal tenderness. Advance clear liquids to full liquids for lunch, if she tolerates clear liquids well. Change Normal Saline IV rate to 50cc/hr after lunch today, if pt tolerating fluids ok. Continue with IV pepcid and start Octreotide today. If weakness improves and no more blood to stools, will discharge tomorrow. Pt in agreement to this plan.
--- NOTE | 2016-11-01 13:15 | PCM.PN ---
[id number] with blood in her stool and weakness yesterday, to the ER. Her daughter was bringing her back from [facility] post cardiac stent. Subjective Update: Yessica RN reports pt has had a couple loose stools this am. States this has been going on for about 9 years, per the pt. States no visual blood to stool noted. No abdominal pain or tenderness. Taking fluids well. Functional Status: Reports: Tolerating Diet, Urinating - Review of Systems Gastrointestinal: Reports: Other (loose stool X 2 this am). Denies: Abdominal Pain Genitourinary: Reports: Incontinence - Patient Data Vitals - Most Recent: Last Vital Signs Temp 98.0 F 11/01/16 08:00 Pulse 90 11/01/16 08:24 Resp 18 11/01/16 08:00 BP 122/62 11/01/16 08:24 Pulse Ox 98 11/01/16 08:00 Weight - Most Recent: 220 lb I&O - Last 24 Hours: Intake & Output 10/31/16 11/01/16 11/01/16 22:59 06:59 14:59 Intake Total 1615 Output Total 400 Balance 1215 Lab Results Last 24 Hours: Laboratory Results - last 24 hr 11/01/16 11/01/16 Range/Units 07:15 07:15 WBC 6.1 (4.0-11.0) K/uL RBC 4.15 (3.80-5.80) M/uL Hgb 11.5 (11.5-16.5) g/dL Hct 36.1 L (37.0-47.0) % MCV 87 (76-96) fL MCH 27.7 (27.0-32.0) pg MCHC 31.9 (31.0-35.0) g/dL RDW 16.3 H (11.0-16.0) % Plt Count 271 (150-500) K/uL MPV 9.6 (6.0-10.0) fL Neut % (Auto) 61.9 (45.0-70.0) % Lymph % (Auto) 27.7 (20.0-40.0) % [place] % (Auto) 9.1 (3.0-10.0) % Eos % (Auto) 0.8 L (1.0-5.0) % Baso % (Auto) 0.5 (0.0-0.5) % Neut # (Auto) 3.76 (2.00-7.50) K/uL Lymph # (Auto) 1.68 (1.50-4.00) K/uL [place] # (Auto) 0.55 (0.20-0.80) K/uL Eos # (Auto) 0.05 (0.04-0.40) K/uL Baso # (Auto) 0.03 (0.02-0.10) K/uL Sodium 143 (136-145) mmol/L Potassium 4.0 (3.5-5.1) mmol/L Chloride 107 (98-107) mmol/L Carbon Dioxide 26.2 (21.0-32.0) mmol/L Anion Gap 13.8 (5.0-15.0) mmol/L BUN 14 D (8-26) mg/dL Creatinine 1.00 (0.55-1.02) mg/dL Est Cr Clr Drug Dosing 41.45 mL/min Estimated GFR (MDRD) 53 L (>60) MLS/MIN BUN/Creatinine Ratio 14.0 (6-25) Glucose 124 H D (74-100) mg/dL Calcium 8.7 (8.5-10.1) mg/dL Med Orders - Current: Current Medications Atorvastatin Calcium (Lipitor) 40 mg PO BEDTIME [facility] Last Admin: 10/31/16 21:35 Dose: 40 mg Clopidogrel Bisulfate (Plavix) 75 mg PO DAILY [facility] Last Admin: 11/01/16 08:27 Dose: 75 mg Cyanocobalamin (Vitamin B12) 2,500 mcg PO DAILY [facility] Last Admin: 11/01/16 08:27 Dose: 2,500 mcg Ferrous Sulfate (Ferrous Sulfate) 325 mg PO BID [facility] Last Admin: 11/01/16 08:25 Dose: 325 mg Sodium Chloride (Normal Saline) 1,000 mls @ 50 mls/hr IV ASDIRECTED [facility] Last Admin: 11/01/16 00:52 Dose: 100 mls/hr Pantoprazole Sodium 80 mg/ (Sodium Chloride) 100 mls @ 200 mls/hr IV Q24H [facility] Last Admin: 11/01/16 08:40 Dose: 200 mls/hr Insulin Human NPH (Humulin N) 10 unit SUBCUT BID [facility] Isosorbide Mononitrate (Imdur) 30 mg PO DAILY [facility] Last Admin: 11/01/16 08:24 Dose: 30 mg Magnesium Oxide (Magnesium Oxide) 400 mg PO DAILY [facility] Last Admin: 11/01/16 08:25 Dose: 400 mg Metoprolol Succinate (Toprol Xl) 100 mg PO DAILY [facility] Last Admin: 11/01/16 08:24 Dose: 100 mg Multivitamins/Minerals (Thera M Plus) 1 tab PO DAILY [facility] Last Admin: 11/01/16 08:25 Dose: 1 tab Nitroglycerin (Nitrostat) 0.4 mg SL ASDIRECTED PRN PRN Reason: Chest Pain Octreotide Acetate (Sandostatin) 50 mcg IVPUSH BID [facility] Last Admin: 11/01/16 08:28 Dose: 50 mcg Sodium Chloride (Saline Flush) 10 ml FLUSH ASDIRECTED PRN PRN Reason: Keep Vein Open Tramadol HCl (Ultram) 50 mg PO DAILY [facility] Last Admin: 11/01/16 08:25 Dose: 50 mg Discontinued Medications Multivitamins/Minerals (Ocuvite) 1 each PO DAILY [facility] Non-Formulary Medication (Insulin Nph Human Isophane [Humulin N Kwikpen]) 10 units SQ BID [facility] Last Admin: 11/01/16 08:27 Dose: 10 units Pantoprazole Sodium (Protonix Iv) Confirm Administered Dose 40 mg .ROUTE .STK -MED ONE Stop: 10/31/16 15:58 Last Admin: 10/31/16 16:02 Dose: 40 mg Pantoprazole Sodium (Protonix Iv) 40 mg IVPUSH ONETIME ONE Stop: 10/31/16 18:17 Last Admin: 10/31/16 18:19 Dose: Not Given - Problem List & Annotations (1) GIB (gastrointestinal bleeding) SNOMED Code(s): 74504964 Code(s): K92.2 - GASTROINTESTINAL HEMORRHAGE, UNSPECIFIED Status: Acute Priority: High Current Visit: Yes Onset Date: ~10/31/16 Qualifiers: GI bleed type/associated pathology: unspecified gastrointestinal hemorrhage type Qualified Code(s): K92.2 - Gastrointestinal hemorrhage, unspecified - Problem List Review Problem List Initiated/Reviewed/Updated: Yes - My Orders Last 24 Hours: My Active Orders 10/31/16 16:58 Patient Status [ADT] Routine Blood Glucose Check, Bedside [RC] 08,12,17,20 Oxygen Therapy [RC] PRN Up With Assistance [RC] ASDIRECTED VTE/DVT Education [RC] Per Unit Routine Vital Signs [RC] Q4H Sodium Chloride 0.9% [Saline Flush] 10 ml FLUSH ASDIRECTED PRN Peripheral IV Insertion Adult [OM.PC] Routine 10/31/16 17:04 Nitroglycerin [Nitrostat] 0.4 mg SL ASDIRECTED PRN 10/31/16 20:00 Octreotide [SandoSTATIN] 50 mcg IVPUSH BID atorvaSTATin [Lipitor] 40 mg PO BEDTIME 11/01/16 05:11 Abdomen 1V Flat [CR] AM 11/01/16 08:00 Clopidogrel [Plavix] 75 mg PO DAILY Ferrous Sulfate 325 mg PO BID Isosorbide Mononitrate [Imdur] 30 mg PO DAILY Metoprolol Succinate [Toprol XL] 100 mg PO DAILY Pantoprazole [ProTONIX IV] 80 mg Sodium Chloride 0.9% [Normal Saline] 100 ml IV Q24H traMADol [Ultram] 50 mg PO DAILY 11/01/16 09:05 Cardiac Monitoring [RC] .As Directed 11/01/16 10:01 CULTURE MRSA SURVEY [] Routine 11/01/16 12:59 Fecal Occult Blood Collection [RC] ASDIRECTED 11/01/16 13:00 CLOSTRIDIUM DIFFICILE BY PCR [] Routine 11/01/16 Lunch Full Liquid Diet [DIET] - Assessment Assessment:: Weakness continues and decrease bowel sounds. Pt is alert and states she has ambulated in the room today. She is taking water with her medications and hasn' t ate since yesterday. She is getting her am insulin and will have clear liquids for the am. - Plan Plan:: No more loose stools since last evening. No abdominal tenderness. Advance clear liquids to full liquids for lunch, if she tolerates clear liquids well. Change Normal Saline IV rate to 50cc/hr after lunch today, if pt tolerating fluids ok. Continue with IV pepcid and start Octreotide today. If weakness improves and no more blood to stools, will discharge tomorrow. Pt in agreement to this plan. 13:15 Stool for occult blood ordered and stool for C-diff ordered after report of loose stools this am.
--- NOTE | 2016-11-01 17:52 | PCM.SN ---
- Free Text/Narrative Note: Discussed in length with family regarding plan of care, labs, diarrhea and further management. Family had concerns of slurred speech and was asking about the possibility of a stroke during her procedure in [place]. Discussed plan and we will obtain CT head in AM. Loperamide for profuse diarrhea. May obtain GI PCR as well.
--- NOTE | 2016-11-01 18:22 | CR ---
DATE OF SERVICE: 11/01/16 CLINICAL DATA: GI bleed SUPINE AND UPRIGHT ABDOMEN: There are multiple gas-filled loops of small bowel throughout the abdomen and pelvis. Some of these are dilated. They do contain numerous air-fluid levels on the upright film. There is gas throughout the colon and rectum. These findings are consistent with early partial obstruction or ileus. No free air. There is increased density in the left lung base consistent with infiltrate or atelectasis. Pneumonia should be considered. [id number] [facility]
[2016-11-01] MEDS: Insulin Isophane NPH, Human 100 Units/ML 10 ML Vial SUBCUT SCH ×2 (18:58→20:25)
[2016-11-01] MEDS: atorvaSTATin 40 MG Tab PO SCH (20:14)
[2016-11-02] MEDS: Pantoprazole 80 MG in Sodium Chloride 0.9% 100 ML IV SCH (07:55)
[2016-11-02] MEDS: Multivitamins with Iron/Calcium/Folic Acid/Minerals Tab PO SCH (07:55)
[2016-11-02] MEDS: Clopidogrel 75 MG Tab PO SCH (07:55)
[2016-11-02] MEDS: Metoprolol Succinate 100 MG Tab.ER PO SCH (07:55)
[2016-11-02] MEDS: Magnesium Oxide 400 MG Tab PO SCH (07:55)
[2016-11-02] MEDS: Isosorbide Mononitrate 30 MG Tab.ER PO SCH (07:56)
[2016-11-02] MEDS: Ferrous Sulfate 325 MG Tab PO SCH ×2 (07:56→20:42)
[2016-11-02] MEDS: Loperamide 2 MG Cap PO SCH (07:56)
[2016-11-02] MEDS: traMADol 50 MG Tab PO SCH (07:56)
[2016-11-02] MEDS: Cyanocobalamin (Vitamin B12) 1,000 MCG Tab PO SCH (07:58)
[2016-11-02] MEDS: Octreotide 50 MCG/1 ML Amp IVPUSH SCH (08:07)
[2016-11-02] MEDS ORDERED: Loperamide 2 MG Cap PO PRN (08:21)
[2016-11-02] MEDS: Insulin Isophane NPH, Human 100 Units/ML 10 ML Vial SUBCUT SCH ×2 (08:30→20:48)
[2016-11-02] MEDS: Albuterol/Ipratropium 3.0-0.5 MG/3 ML Neb Soln NEB SCH ×3 (10:27→22:45)
[2016-11-02] MEDS: Potassium Chloride 20 MEQ Tab.ER PO SCH ×2 (12:44→20:42)
[2016-11-02] MEDS: Octreotide 100 MCG/ML SDV IVPUSH SCH ×2 (12:49→20:43)
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
--- NOTE | 2016-11-02 17:41 | PCM.PN ---
- General Info Date of Service: 11/02/16 Admission Dx/Problem (Free Text): This 81 yr female presented with blood in her stool and weakness yesterday, to the ER. Her daughter was bringing her back from [facility] post cardiac stent. Subjective Update: Pt states she is feeling better and is feeling stronger. She is having some loose stools, but no abdominal tenderness. Functional Status: Reports: Tolerating Diet, Ambulating, Incentive Spirometry - Review of Systems General: Reports: Weakness, Fatigue. Denies: Fever Pulmonary: Denies: Cough, Sputum Gastrointestinal: Reports: Diarrhea. Denies: Abdominal Pain, Hematochezia, Melena Genitourinary: Reports: Incontinence. Denies: Hematuria - Patient Data Vitals - Most Recent: Last Vital Signs Temp 98.5 F 11/02/16 16:00 Pulse 77 11/02/16 16:00 Resp 16 11/02/16 16:00 BP 114/48 L 11/02/16 16:00 Pulse Ox 99 11/02/16 16:00 Weight - Most Recent: 220 lb I&O - Last 24 Hours: Intake & Output 11/02/16 11/02/16 11/02/16 06:59 14:59 22:59 Intake Total 720 222 Output Total 125 Balance 720 222 -125 Lab Results Last 24 Hours: Laboratory Results - last 24 hr 11/01/16 11/01/16 11/01/16 Range/Units 07:10 13:16 16:34 WBC (4.0-11.0) K/uL RBC (3.80-5.80) M/uL Hgb (11.5-16.5) g/dL Hct (37.0-47.0) % MCV (76-96) fL MCH (27.0-32.0) pg MCHC (31.0-35.0) g/dL RDW (11.0-16.0) % Plt Count (150-500) K/uL MPV (6.0-10.0) fL Neut % (Auto) (45.0-70.0) % Lymph % (Auto) (20.0-40.0) % [place] % (Auto) (3.0-10.0) % Eos % (Auto) (1.0-5.0) % Baso % (Auto) (0.0-0.5) % Neut # (Auto) (2.00-7.50) K/uL Lymph # (Auto) (1.50-4.00) K/uL [place] # (Auto) (0.20-0.80) K/uL Eos # (Auto) (0.04-0.40) K/uL Baso # (Auto) (0.02-0.10) K/uL Sodium (136-145) mmol/L Potassium (3.5-5.1) mmol/L Chloride (98-107) mmol/L Carbon Dioxide (21.0-32.0) mmol/L Anion Gap (5.0-15.0) mmol/L BUN (8-26) mg/dL Creatinine (0.55-1.02) mg/dL Est Cr Clr Drug Dosing mL/min Estimated GFR (MDRD) (>60) MLS/MIN BUN/Creatinine Ratio (6-25) Glucose (74-100) mg/dL POC Glucose 115 H 210 H 189 H (74-110) mg/dL Calcium (8.5-10.1) mg/dL 11/01/16 11/02/16 11/02/16 Range/Units 19:18 07:20 07:20 WBC 8.2 D (4.0-11.0) K/uL RBC 4.04 (3.80-5.80) M/uL Hgb 11.1 L (11.5-16.5) g/dL Hct 34.8 L (37.0-47.0) % MCV 86 (76-96) fL MCH 27.5 (27.0-32.0) pg MCHC 31.9 (31.0-35.0) g/dL RDW 16.1 H (11.0-16.0) % Plt Count 237 (150-500) K/uL MPV 9.4 (6.0-10.0) fL Neut % (Auto) 74.4 H (45.0-70.0) % Lymph % (Auto) 15.8 L (20.0-40.0) % [place] % (Auto) 8.9 (3.0-10.0) % Eos % (Auto) 0.7 L (1.0-5.0) % Baso % (Auto) 0.2 (0.0-0.5) % Neut # (Auto) 6.13 (2.00-7.50) K/uL Lymph # (Auto) 1.30 L (1.50-4.00) K/uL [place] # (Auto) 0.73 (0.20-0.80) K/uL Eos # (Auto) 0.06 (0.04-0.40) K/uL Baso # (Auto) 0.02 (0.02-0.10) K/uL Sodium 143 (136-145) mmol/L Potassium 3.4 L (3.5-5.1) mmol/L Chloride 107 (98-107) mmol/L Carbon Dioxide 27.2 (21.0-32.0) mmol/L Anion Gap 12.2 (5.0-15.0) mmol/L BUN 9 D (8-26) mg/dL Creatinine 0.99 (0.55-1.02) mg/dL Est Cr Clr Drug Dosing 41.87 mL/min Estimated GFR (MDRD) 54 L (>60) MLS/MIN BUN/Creatinine Ratio 9.1 (6-25) Glucose 133 H (74-100) mg/dL POC Glucose 186 H (74-110) mg/dL Calcium 8.6 (8.5-10.1) mg/dL 11/02/16 Range/Units 11:16 WBC (4.0-11.0) K/uL RBC (3.80-5.80) M/uL Hgb (11.5-16.5) g/dL Hct (37.0-47.0) % MCV (76-96) fL MCH (27.0-32.0) pg MCHC (31.0-35.0) g/dL RDW (11.0-16.0) % Plt Count (150-500) K/uL MPV (6.0-10.0) fL Neut % (Auto) (45.0-70.0) % Lymph % (Auto) (20.0-40.0) % [place] % (Auto) (3.0-10.0) % Eos % (Auto) (1.0-5.0) % Baso % (Auto) (0.0-0.5) % Neut # (Auto) (2.00-7.50) K/uL Lymph # (Auto) (1.50-4.00) K/uL [place] # (Auto) (0.20-0.80) K/uL Eos # (Auto) (0.04-0.40) K/uL Baso # (Auto) (0.02-0.10) K/uL Sodium (136-145) mmol/L Potassium (3.5-5.1) mmol/L Chloride (98-107) mmol/L Carbon Dioxide (21.0-32.0) mmol/L Anion Gap (5.0-15.0) mmol/L BUN (8-26) mg/dL Creatinine (0.55-1.02) mg/dL Est Cr Clr Drug Dosing mL/min Estimated GFR (MDRD) (>60) MLS/MIN BUN/Creatinine Ratio (6-25) Glucose (74-100) mg/dL POC Glucose 133 H (74-110) mg/dL Calcium (8.5-10.1) mg/dL Derrick Results Last 24 Hours: Microbiology 11/01/16 15:00 MRSA Surveillance Culture - Final Nares, Unspecified NO MRSA ISOLATED 11/01/16 12:30 Clostridium difficile (PCR) - Final Stool / Feces - Stool, Liquid Med Orders - Current: Current Medications Albuterol/Ipratropium (Duoneb 3.0-0.5 Mg/3 Ml) 3 ml NEB Q6H [facility] Last Admin: 11/02/16 16:03 Dose: 3 ml Atorvastatin Calcium (Lipitor) 40 mg PO BEDTIME [facility] Last Admin: 11/01/16 20:14 Dose: 40 mg Clopidogrel Bisulfate (Plavix) 75 mg PO DAILY [facility] Last Admin: 11/02/16 07:55 Dose: 75 mg Cyanocobalamin (Vitamin B12) 2,500 mcg PO DAILY [facility] Last Admin: 11/02/16 07:58 Dose: 2,500 mcg Ferrous Sulfate (Ferrous Sulfate) 325 mg PO BID [facility] Last Admin: 11/02/16 07:56 Dose: 325 mg Sodium Chloride (Normal Saline) 1,000 mls @ 50 mls/hr IV ASDIRECTED [facility] Last Admin: 11/01/16 00:52 Dose: 100 mls/hr Insulin Human NPH (Humulin N) 10 unit SUBCUT BID [facility] Last Admin: 11/02/16 08:30 Dose: 10 units Isosorbide Mononitrate (Imdur) 30 mg PO DAILY [facility] Last Admin: 11/02/16 07:56 Dose: 30 mg Loperamide HCl (Imodium) 2 mg PO QAM [facility] Last Admin: 11/02/16 07:56 Dose: 2 mg Loperamide HCl (Imodium) 2 mg PO Q4H PRN PRN Reason: Diarrhea Last Admin: 11/02/16 09:49 Dose: 2 mg Magnesium Oxide (Magnesium Oxide) 400 mg PO DAILY [facility] Last Admin: 11/02/16 07:55 Dose: 400 mg Metoprolol Succinate (Toprol Xl) 100 mg PO DAILY [facility] Last Admin: 11/02/16 07:55 Dose: 100 mg Multivitamins/Minerals (Thera M Plus) 1 tab PO DAILY [facility] Last Admin: 11/02/16 07:55 Dose: 1 tab Nitroglycerin (Nitrostat) 0.4 mg SL ASDIRECTED PRN PRN Reason: Chest Pain Octreotide Acetate (Sandostatin) 50 mcg IVPUSH BID [facility] Last Admin: 11/02/16 12:49 Dose: 50 mcg Pantoprazole Sodium (Protonix) 40 mg PO ACBREAKFAST [facility] Potassium Chloride (Klor-Con M20) 20 meq PO BID [facility] Last Admin: 11/02/16 12:44 Dose: 20 meq Sodium Chloride (Saline Flush) 10 ml FLUSH ASDIRECTED PRN PRN Reason: Keep Vein Open Tramadol HCl (Ultram) 50 mg PO DAILY [facility] Last Admin: 11/02/16 07:56 Dose: 50 mg Discontinued Medications Pantoprazole Sodium 80 mg/ (Sodium Chloride) 100 mls @ 200 mls/hr IV Q24H [facility] Last Admin: 11/02/16 07:55 Dose: 200 mls/hr Multivitamins/Minerals (Ocuvite) 1 each PO DAILY [facility] Non-Formulary Medication (Insulin Nph Human Isophane [Humulin N Kwikpen]) 10 units SQ BID [facility] Last Admin: 11/01/16 08:27 Dose: 10 units Octreotide Acetate (Sandostatin) 50 mcg IVPUSH BID [facility] Last Admin: 11/02/16 08:07 Dose: Not Given Pantoprazole Sodium (Protonix Iv) Confirm Administered Dose 40 mg .ROUTE .STK -MED ONE Stop: 10/31/16 15:58 Last Admin: 10/31/16 16:02 Dose: 40 mg Pantoprazole Sodium (Protonix Iv) 40 mg IVPUSH ONETIME ONE Stop: 10/31/16 18:17 Last Admin: 10/31/16 18:19 Dose: Not Given - Exam Quality Assessment: No: Supplemental Oxygen, Skin Breakdown General: Alert, Oriented, No Acute Distress Neck: Trachea Midline, No JVD Lungs: Clear to Auscultation, Normal Respiratory Effort. No: Crackles, Rhonchi Cardiovascular: No Murmurs, Irregular Rhythm GI/Abdominal Exam: Soft, Non-Tender, No Distention, No Abnormal Bruit Extremities: Normal Capillary Refill, Pedal Edema Skin: Warm, Dry, Rash Psy/Mental Status: Alert, Normal Affect - Problem List & Annotations (1) GIB (gastrointestinal bleeding) SNOMED Code(s): 95324528 Code(s): K92.2 - GASTROINTESTINAL HEMORRHAGE, UNSPECIFIED Status: Acute Priority: High Current Visit: Yes Onset Date: ~10/31/16 Qualifiers: GI bleed type/associated pathology: unspecified gastrointestinal hemorrhage type Qualified Code(s): K92.2 - Gastrointestinal hemorrhage, unspecified - Problem List Review Problem List Initiated/Reviewed/Updated: Yes - My Orders Last 24 Hours: My Active Orders 11/02/16 12:06 OT Evaluation and Treatment [CONS] Routine PT Evaluation and Treatment [CONS] Routine 11/02/16 12:15 Potassium Chloride [Klor-Con M20] 20 meq PO BID 11/02/16 13:22 OVA AND PARASITES [MREF] Routine 11/02/16 16:36 BRUNILDA Hose [Antiembolic Hose] [OM.PC] Routine - Assessment Assessment:: 8:45Weakness is better today and she is sitting in the chair and responding well to questions and offer inputs and concerns of her discharge plans. Her daughter is present, as well as Dr. Cornejo and Jeff nurse is present. Discussion on possible strengthening needed before discharge. Daughter in agreement with this. Pt is taking full liquids and tolerating well. She continues with loose BM during night and this am. Staff report some soreness to skin to jasmine-area and using barrier cream to prevent skin breakdown. 11:00 nurse [place] contacted provider with update and noting low potassium level. KCL 20 meq PO bid ordered. 12:00 [place] nurse, contacted provider to discuss options for discharge and activity of pt. Pt and OT referral ordered to assess for safety and assist with appropriate discharge plans/recommendations. - Plan Plan:: Change Normal Saline IV to salin lock. Continue with IV pepcid and start Octreotide today, if available. Start incentive spirometry, Brunilda hose and assist with ambulation in room as tolerated with PT/OT referral today. If weakness improves and no more blood to stools, and will discharge tomorrow. Pt in agreement to this plan. May need to transfer to Swing bed if pt not improving with strength for discharge to home.
[2016-11-02] MEDS: atorvaSTATin 40 MG Tab PO SCH (20:42)
[2016-11-03] MEDS: Albuterol/Ipratropium 3.0-0.5 MG/3 ML Neb Soln NEB SCH (06:35)
[2016-11-03] MEDS ORDERED: Pantoprazole 40 MG Tab.CR PO SCH (07:00)
[2016-11-03] MEDS ORDERED: Albuterol/Ipratropium 3.0-0.5 MG/3 ML Neb Soln INH SCH (08:00)
[2016-11-03] MEDS: Potassium Chloride 20 MEQ Tab.ER PO SCH (08:01)
[2016-11-03] MEDS: Magnesium Oxide 400 MG Tab PO SCH (08:01)
[2016-11-03] MEDS: Clopidogrel 75 MG Tab PO SCH (08:02)
[2016-11-03] MEDS: Metoprolol Succinate 100 MG Tab.ER PO SCH (08:02)
[2016-11-03] MEDS: Multivitamins with Iron/Calcium/Folic Acid/Minerals Tab PO SCH (08:02)
[2016-11-03] MEDS: Ferrous Sulfate 325 MG Tab PO SCH (08:02)
[2016-11-03] MEDS: traMADol 50 MG Tab PO SCH (08:04)
[2016-11-03] MEDS: Cyanocobalamin (Vitamin B12) 1,000 MCG Tab PO SCH (08:04)
[2016-11-03] MEDS: Isosorbide Mononitrate 30 MG Tab.ER PO SCH (08:08)
[2016-11-03] MEDS: Octreotide 100 MCG/ML SDV IVPUSH SCH (09:51)
[2016-11-03] MEDS: Loperamide 2 MG Cap PO SCH (09:52)
[2016-11-03] MEDS: Insulin Isophane NPH, Human 100 Units/ML 10 ML Vial SUBCUT SCH ×2 (09:56→12:09)
[2016-11-03 14:35] VITALS: BP 129/59
--- NOTE | 2016-11-03 17:41 | PCM.PN ---
- General Info Date of Service: 11/03/16 Admission Dx/Problem (Free Text): This 81 yr female presented with blood in her stool and weakness yesterday, to the ER. Her daughter was bringing her back from [facility] post cardiac stent. Subjective Update: Feeling better and stronger and has been up to the bathroom this am. No more loose stools for her and no more blood to stools. Functional Status: Reports: Tolerating Diet, Urinating, Incentive Spirometry. Denies: New Symptoms - Review of Systems General: Reports: No Symptoms Pulmonary: Reports: No Symptoms. Denies: Shortness of Breath, Cough Cardiovascular: Reports: Edema. Denies: Chest Pain Gastrointestinal: Denies: Abdominal Pain, Diarrhea Genitourinary: Reports: Urgency, Incontinence. Denies: Burning, Pain - Patient Data Vitals - Most Recent: Last Vital Signs Temp 97.4 F 11/03/16 12:00 Pulse 85 11/03/16 12:00 Resp 16 11/03/16 12:00 BP 129/59 L 11/03/16 12:00 Pulse Ox 98 11/03/16 12:00 Weight - Most Recent: 220 lb I&O - Last 24 Hours: Intake & Output 11/03/16 11/03/16 11/03/16 06:59 14:59 22:59 Output Total 200 Balance -200 Lab Results Last 24 Hours: Laboratory Results - last 24 hr 11/02/16 11/02/16 11/03/16 Range/Units 16:07 19:48 06:41 POC Glucose 136 H 153 H 110 (74-110) mg/dL Urine Color Urine Appearance (CLEAR) Urine pH (5.0-8.0) Ur Specific [place] (1.003-1.030) Urine Protein (NEGATIVE) mg/dL Urine Glucose (UA) (NEGATIVE) mg/dL Urine Ketones (NEGATIVE) mg/dL Urine Occult Blood (NEGATIVE) Urine Nitrite (NEGATIVE) Urine Bilirubin (NEGATIVE) Urine Urobilinogen (0.2-1.0) E.U./dL Ur Leukocyte Esterase (NEGATIVE) Urine RBC /HPF Urine WBC /HPF Urine WBC Clumps /HPF Ur Squamous Epith Cells /HPF Urine Bacteria /HPF 11/03/16 11/03/16 Range/Units 10:56 Unknown POC Glucose 190 H (74-110) mg/dL Urine Color Yellow Urine Appearance Cloudy (CLEAR) Urine pH 6.5 (5.0-8.0) Ur Specific [place] >= 1.030 (1.003-1.030) Urine Protein 100 H (NEGATIVE) mg/dL Urine Glucose (UA) Negative (NEGATIVE) mg/dL Urine Ketones Negative (NEGATIVE) mg/dL Urine Occult Blood Small H (NEGATIVE) Urine Nitrite Positive H (NEGATIVE) Urine Bilirubin Negative (NEGATIVE) Urine Urobilinogen 1.0 (0.2-1.0) E.U./dL Ur Leukocyte Esterase Small H (NEGATIVE) Urine RBC 10-20 H /HPF Urine WBC 10-20 H /HPF Urine WBC Clumps Occasional /HPF Ur Squamous Epith Cells Few /HPF Urine Bacteria Moderate H /HPF Med Orders - Current: Current Medications Discontinued Medications Albuterol/Ipratropium (Duoneb 3.0-0.5 Mg/3 Ml) 3 ml NEB Q6H [facility] Last Admin: 11/03/16 06:35 Dose: 3 ml Albuterol/Ipratropium (Duoneb 3.0-0.5 Mg/3 Ml) 3 ml INH Q6H [facility] Last Admin: 11/03/16 09:57 Dose: Not Given Atorvastatin Calcium (Lipitor) 40 mg PO BEDTIME [facility] Last Admin: 11/02/16 20:42 Dose: 40 mg Clopidogrel Bisulfate (Plavix) 75 mg PO DAILY [facility] Last Admin: 11/03/16 08:02 Dose: 75 mg Cyanocobalamin (Vitamin B12) 2,500 mcg PO DAILY [facility] Last Admin: 11/03/16 08:04 Dose: 2,500 mcg Ferrous Sulfate (Ferrous Sulfate) 325 mg PO BID [facility] Last Admin: 11/03/16 08:02 Dose: 325 mg Sodium Chloride (Normal Saline) 1,000 mls @ 50 mls/hr IV ASDIRECTED [facility] Last Admin: 11/01/16 00:52 Dose: 100 mls/hr Pantoprazole Sodium 80 mg/ (Sodium Chloride) 100 mls @ 200 mls/hr IV Q24H [facility] Last Admin: 11/02/16 07:55 Dose: 200 mls/hr Insulin Human NPH (Humulin N) 10 unit SUBCUT BID [facility] Last Admin: 11/03/16 12:09 Dose: 10 units Isosorbide Mononitrate (Imdur) 30 mg PO DAILY [facility] Last Admin: 11/03/16 08:08 Dose: 30 mg Loperamide HCl (Imodium) 2 mg PO QAM [facility] Last Admin: 11/03/16 09:52 Dose: Not Given Loperamide HCl (Imodium) 2 mg PO Q4H PRN PRN Reason: Diarrhea Last Admin: 11/02/16 09:49 Dose: 2 mg Magnesium Oxide (Magnesium Oxide) 400 mg PO DAILY [facility] Last Admin: 11/03/16 08:01 Dose: 400 mg Metoprolol Succinate (Toprol Xl) 100 mg PO DAILY [facility] Last Admin: 11/03/16 08:02 Dose: 100 mg Multivitamins/Minerals (Ocuvite) 1 each PO DAILY [facility] Multivitamins/Minerals (Thera M Plus) 1 tab PO DAILY [facility] Last Admin: 11/03/16 08:02 Dose: 1 tab Nitroglycerin (Nitrostat) 0.4 mg SL ASDIRECTED PRN PRN Reason: Chest Pain Non-Formulary Medication (Insulin Nph Human Isophane [Humulin N Kwikpen]) 10 units SQ BID [facility] Last Admin: 11/01/16 08:27 Dose: 10 units Octreotide Acetate (Sandostatin) 50 mcg IVPUSH BID [facility] Last Admin: 11/02/16 08:07 Dose: Not Given Octreotide Acetate (Sandostatin) 50 mcg IVPUSH BID [facility] Last Admin: 11/03/16 09:51 Dose: 50 mcg Pantoprazole Sodium (Protonix Iv) Confirm Administered Dose 40 mg .ROUTE .STK -MED ONE Stop: 10/31/16 15:58 Last Admin: 10/31/16 16:02 Dose: 40 mg Pantoprazole Sodium (Protonix Iv) 40 mg IVPUSH ONETIME ONE Stop: 10/31/16 18:17 Last Admin: 10/31/16 18:19 Dose: Not Given Pantoprazole Sodium (Protonix) 40 mg PO ACBREAKFAST [facility] Last Admin: 11/03/16 06:55 Dose: 40 mg Potassium Chloride (Klor-Con M20) 20 meq PO BID [facility] Last Admin: 11/03/16 08:01 Dose: 20 meq Sodium Chloride (Saline Flush) 10 ml FLUSH ASDIRECTED PRN PRN Reason: Keep Vein Open Last Admin: 11/03/16 06:36 Dose: 10 ml Tramadol HCl (Ultram) 50 mg PO DAILY [facility] Last Admin: 11/03/16 08:04 Dose: Not Given - Exam Quality Assessment: No: Skin Breakdown General: Alert, Oriented, No Acute Distress Lungs: Clear to Auscultation, Normal Respiratory Effort. No: Rales, Rhonchi Cardiovascular: No Murmurs, Irregular Rhythm GI/Abdominal Exam: Normal Bowel Sounds, Soft, Non-Tender. No: No Distention Extremities: Normal Capillary Refill, Pedal Edema, Limited Range of Motion. No : Increased Warmth, Redness Peripheral Pulses: 2+: Dorsalis Pedis (L), Dorsalis Pedis (R) Skin: Warm, Dry, Intact, Rash (right upper back, scabbed clustered area.) Neurological: Normal Speech, Strength Equal Bilateral Psy/Mental Status: Alert, Normal Affect - Problem List & Annotations (1) GIB (gastrointestinal bleeding) SNOMED Code(s): 23076341 Code(s): K92.2 - GASTROINTESTINAL HEMORRHAGE, UNSPECIFIED Status: Acute Priority: High Onset Date: ~10/31/16 Qualifiers: GI bleed type/associated pathology: unspecified gastrointestinal hemorrhage type Qualified Code(s): K92.2 - Gastrointestinal hemorrhage, unspecified - Problem List Review Problem List Initiated/Reviewed/Updated: Yes - My Orders Last 24 Hours: My Active Orders 11/03/16 CULTURE URINE [RM] Routine 11/03/16 15:44 Ready for Discharge [RC] PER UNIT ROUTINE - Assessment Assessment:: 0800 Pt is sitting up in bed and feeling stronger and no more loose stools and no more blood to stool. She is taking full liquids well. 14:30 Pt tolerated lunch well. PT and OT in agreement for discharge to home with assist of daughter. - Plan Plan:: Advance diet today to soft foods. PT/OT consult today. Pt is stronger, if diet is tolerated and strength normal for her, will plan to discharge this afternoon. Plan to continue potassium supplement and continue Plavix and oral PPI as at home. Continue other home medications. Daughter and pt in agreement with this plan. 14:30 Plan to discharge. PT and OT in agreement with this plan. Pt will stay with daughter. Return appointment for follow-up post cardiac stent, next week. Pt should have her potassium rechecked at that time. PT referral for outpatient strengthening upon discharge.
--- NOTE | 2016-11-03 17:57 | PCM.DCSUM1 ---
Discharge Summary - Hospital Course Free Text/Narrative:: This 81 yr female presented with diarrhea and blood to stool and weakness. She is stronger and no more diarrhea and no more blood to stool. PT and OT consult completed today and in agreement for discharge today. U/A shows signs of UTI will set-up for culture and RX sent to local pharmacy for Bactrim DS. - Discharge Data Discharge Date: 11/03/16 Discharge Disposition: Home, Self-Care 01 Condition: Good - Discharge Diagnosis/Problem(s) (1) GIB (gastrointestinal bleeding) SNOMED Code(s): 37551559 ICD Code: K92.2 - GASTROINTESTINAL HEMORRHAGE, UNSPECIFIED Status: Acute Priority: High Onset Date: ~10/31/16 Qualifiers: GI bleed type/associated pathology: unspecified gastrointestinal hemorrhage type Qualified Code(s): K92.2 - Gastrointestinal hemorrhage, unspecified - Patient Summary/Data Consults: Consultations 11/02/16 12:06 OT Evaluation and Treatment [CONS] Routine Please Evaluate and Treat. OT Reason for Consult: Strengthening This query below is only for informational purposes and is not editable. Admission Diagnosis/Problem: Blood present in stool PT Evaluation and Treatment [CONS] Routine Please Evaluate and Treat. PT Reason for Consult: Strengthening This query below is only for informational purposes and is not editable. Admission Diagnosis/Problem: Blood present in stool - Patient Instructions Diet: Mechanical Soft Activity: As Tolerated, Full Weight Bearing Driving: Do Not Drive Showering/Bathing: May Shower Notify Provider of: Fever, Nausea and/or Vomiting - Discharge Plan Home Medications: Home Meds Insulin Isophane NPH, Human [NovoLIN N] 8 units SUBCUT BID 09/09/16 [History] Insulin Regular, Human [NovoLIN R] 10 units SUBCUT ASDIRECTED 09/09/16 [History] Lisinopril/Hydrochlorothiazide [Lisinopril-Hctz 20-12.5 mg Tab] 12.5 - 20 each PO DAILY 09/09/16 [History] Aspirin [Lite Coat Aspirin] 325 mg PO DAILY 10/31/16 [History] Clopidogrel Bisulfate [Clopidogrel] 75 mg PO DAILY 10/31/16 [History] Cyanocobalamin (Vitamin B-12) [B-12] 2,500 mg PO DAILY 10/31/16 [History] Ferrous Sulfate [Iron] 325 mg PO BID 10/31/16 [History] Insulin NPH Human Isophane [Humulin N Kwikpen] 10 units SQ BID 10/31/16 [History ] Isosorbide Mononitrate [Isosorbide Mononitrate ER] 30 mg PO DAILY 10/31/16 [ History] Lutein/Minerals/Vit A,C & E [Ocuvite] 1 tab PO DAILY 10/31/16 [History] Magnesium Oxide [Magnesium] 400 mg PO DAILY 10/31/16 [History] Metoprolol Succinate [Toprol XL 100mg] 100 mg PO DAILY 10/31/16 [History] Multivitamin [Super Multivitamin] 1 each PO DAILY 10/31/16 [History] Nitroglycerin 0.4 mg SL ASDIRECTED PRN 10/31/16 [History] Pantoprazole [ProTONIX] 40 mg PO DAILY 10/31/16 [History] atorvaSTATin [Lipitor] 40 mg PO BEDTIME 10/31/16 [History] traMADol [Ultram] 50 mg PO DAILY 10/31/16 [History] Patient Handouts: Rehydration, Adult, Atrial Fibrillation Referrals: PCP,None [Primary Care Provider] - - Patient Data Vitals - Most Recent: Last Vital Signs Temp 97.4 F 11/03/16 12:00 Pulse 85 11/03/16 12:00 Resp 16 11/03/16 12:00 BP 129/59 L 11/03/16 12:00 Pulse Ox 98 11/03/16 12:00 Weight - Most Recent: 220 lb I&O - Last 24 hours: Intake & Output 11/03/16 11/03/16 11/03/16 06:59 14:59 22:59 Output Total 200 Balance -200 Lab Results - Last 24 hrs: Laboratory Results - last 24 hr 11/02/16 11/02/16 11/03/16 Range/Units 16:07 19:48 06:41 POC Glucose 136 H 153 H 110 (74-110) mg/dL Urine Color Urine Appearance (CLEAR) Urine pH (5.0-8.0) Ur Specific [place] (1.003-1.030) Urine Protein (NEGATIVE) mg/dL Urine Glucose (UA) (NEGATIVE) mg/dL Urine Ketones (NEGATIVE) mg/dL Urine Occult Blood (NEGATIVE) Urine Nitrite (NEGATIVE) Urine Bilirubin (NEGATIVE) Urine Urobilinogen (0.2-1.0) E.U./dL Ur Leukocyte Esterase (NEGATIVE) Urine RBC /HPF Urine WBC /HPF Urine WBC Clumps /HPF Ur Squamous Epith Cells /HPF Urine Bacteria /HPF 11/03/16 11/03/16 Range/Units 10:56 Unknown POC Glucose 190 H (74-110) mg/dL Urine Color Yellow Urine Appearance Cloudy (CLEAR) Urine pH 6.5 (5.0-8.0) Ur Specific [place] >= 1.030 (1.003-1.030) Urine Protein 100 H (NEGATIVE) mg/dL Urine Glucose (UA) Negative (NEGATIVE) mg/dL Urine Ketones Negative (NEGATIVE) mg/dL Urine Occult Blood Small H (NEGATIVE) Urine Nitrite Positive H (NEGATIVE) Urine Bilirubin Negative (NEGATIVE) Urine Urobilinogen 1.0 (0.2-1.0) E.U./dL Ur Leukocyte Esterase Small H (NEGATIVE) Urine RBC 10-20 H /HPF Urine WBC 10-20 H /HPF Urine WBC Clumps Occasional /HPF Ur Squamous Epith Cells Few /HPF Urine Bacteria Moderate H /HPF Med Orders - Current: Current Medications Discontinued Medications Albuterol/Ipratropium (Duoneb 3.0-0.5 Mg/3 Ml) 3 ml NEB Q6H [facility] Last Admin: 11/03/16 06:35 Dose: 3 ml Albuterol/Ipratropium (Duoneb 3.0-0.5 Mg/3 Ml) 3 ml INH Q6H [facility] Last Admin: 11/03/16 09:57 Dose: Not Given Atorvastatin Calcium (Lipitor) 40 mg PO BEDTIME [facility] Last Admin: 11/02/16 20:42 Dose: 40 mg Clopidogrel Bisulfate (Plavix) 75 mg PO DAILY [facility] Last Admin: 11/03/16 08:02 Dose: 75 mg Cyanocobalamin (Vitamin B12) 2,500 mcg PO DAILY [facility] Last Admin: 11/03/16 08:04 Dose: 2,500 mcg Ferrous Sulfate (Ferrous Sulfate) 325 mg PO BID [facility] Last Admin: 11/03/16 08:02 Dose: 325 mg Sodium Chloride (Normal Saline) 1,000 mls @ 50 mls/hr IV ASDIRECTED [facility] Last Admin: 11/01/16 00:52 Dose: 100 mls/hr Pantoprazole Sodium 80 mg/ (Sodium Chloride) 100 mls @ 200 mls/hr IV Q24H [facility] Last Admin: 11/02/16 07:55 Dose: 200 mls/hr Insulin Human NPH (Humulin N) 10 unit SUBCUT BID [facility] Last Admin: 11/03/16 12:09 Dose: 10 units Isosorbide Mononitrate (Imdur) 30 mg PO DAILY [facility] Last Admin: 11/03/16 08:08 Dose: 30 mg Loperamide HCl (Imodium) 2 mg PO QAM [facility] Last Admin: 11/03/16 09:52 Dose: Not Given Loperamide HCl (Imodium) 2 mg PO Q4H PRN PRN Reason: Diarrhea Last Admin: 11/02/16 09:49 Dose: 2 mg Magnesium Oxide (Magnesium Oxide) 400 mg PO DAILY [facility] Last Admin: 11/03/16 08:01 Dose: 400 mg Metoprolol Succinate (Toprol Xl) 100 mg PO DAILY [facility] Last Admin: 11/03/16 08:02 Dose: 100 mg Multivitamins/Minerals (Ocuvite) 1 each PO DAILY [facility] Multivitamins/Minerals (Thera M Plus) 1 tab PO DAILY [facility] Last Admin: 11/03/16 08:02 Dose: 1 tab Nitroglycerin (Nitrostat) 0.4 mg SL ASDIRECTED PRN PRN Reason: Chest Pain Non-Formulary Medication (Insulin Nph Human Isophane [Humulin N Kwikpen]) 10 units SQ BID [facility] Last Admin: 11/01/16 08:27 Dose: 10 units Octreotide Acetate (Sandostatin) 50 mcg IVPUSH BID [facility] Last Admin: 11/02/16 08:07 Dose: Not Given Octreotide Acetate (Sandostatin) 50 mcg IVPUSH BID [facility] Last Admin: 11/03/16 09:51 Dose: 50 mcg Pantoprazole Sodium (Protonix Iv) Confirm Administered Dose 40 mg .ROUTE .STK -MED ONE Stop: 10/31/16 15:58 Last Admin: 10/31/16 16:02 Dose: 40 mg Pantoprazole Sodium (Protonix Iv) 40 mg IVPUSH ONETIME ONE Stop: 10/31/16 18:17 Last Admin: 10/31/16 18:19 Dose: Not Given Pantoprazole Sodium (Protonix) 40 mg PO ACBREAKFAST [facility] Last Admin: 11/03/16 06:55 Dose: 40 mg Potassium Chloride (Klor-Con M20) 20 meq PO BID [facility] Last Admin: 11/03/16 08:01 Dose: 20 meq Sodium Chloride (Saline Flush) 10 ml FLUSH ASDIRECTED PRN PRN Reason: Keep Vein Open Last Admin: 11/03/16 06:36 Dose: 10 ml Tramadol HCl (Ultram) 50 mg PO DAILY [facility] Last Admin: 11/03/16 08:04 Dose: Not Given *Q Meaningful Use (DIS) - VTE *Q VTE Criteria *Q: - Stroke *Q Stroke Criteria *Q: - AMI *Q AMI Criteria *Q:
[2016-11-03 23:08] LABS: CAMPYLOBACTER (by PCR) Negative (NEG); SALMONELLA SPECIES (by PCR) Negative (NEG); SHIG OR ENTEROPATH ECOLI (PCR) Negative (NEG); SHIGA TOXIN PRODUC ECOLI (PCR) Negative (NEG)
== END 2016-11-03 15:47 | disposition home or self-care (01) | DRG 378 ==
LOC: LB.ED 14:53 → LB.MS 16:53
PROVIDERS: ADMIT Obstetrics & Gynecology; ATTEND Nurse Practitioner Family
DX: K92.1 Melena (principal); N39.0 Urinary tract infection, site not specified; C79.9 Secondary malignant neoplasm of unspecified site; R19.7 Diarrhea, unspecified; I25.2 Old myocardial infarction; I25.10 Atherosclerotic heart disease of native coronary artery without angina pectoris; I10 Essential (primary) hypertension; Z95.5 Presence of coronary angioplasty implant and graft; M19.90 Unspecified osteoarthritis, unspecified site; E11.9 Type 2 diabetes mellitus without complications; Z79.4 Long term (current) use of insulin; D64.9 Anemia, unspecified; C55 Malignant neoplasm of uterus, part unspecified; R53.1 Weakness; R47.81 Slurred speech; Z88.1 Allergy status to other antibiotic agents; Z88.8 Allergy status to other drugs, medicaments and biological substances; Z79.82 Long term (current) use of aspirin; Z79.899 Other long term (current) drug therapy
CPT/HCPCS: 36415; 70450; 74000; 80048; 80053; 81001; 82962; 85025; 85610; 85730; 87086; 87088; 87186; 87329; 87493; 87505; 96360; 97110-GP; 97116-GP; 97162-GP; 97165-GO; 99285-25; A9270-GY; C9113; J2354; J7030; J7040; J7050; J7620

== ENCOUNTER 2016-11-03 22:48 | Emergency (ER) | payer MEDICARE, BC ==
[2016-11-03] MEDS ORDERED: Sodium Chloride 0.9% 10 ML Syringe FLUSH PRN (23:40)
[2016-11-04] MEDS ORDERED: Albuterol 0.083% 2.5 MG/3 ML Neb Soln NEB ONE
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
[2016-11-04] MEDS ORDERED: Nitroglycerin 0.4 MG Tab.SL SL ONE (01:03)
[2016-11-04 01:09] VITALS: BP 126/61
== END 2016-11-04 01:41 ==
LOC: LB.ED 22:48
DX: R07.89 Other chest pain (principal); I48.91 Unspecified atrial fibrillation; I25.10 Atherosclerotic heart disease of native coronary artery without angina pectoris; I10 Essential (primary) hypertension; E11.9 Type 2 diabetes mellitus without complications; M19.90 Unspecified osteoarthritis, unspecified site; I25.2 Old myocardial infarction; Z88.8 Allergy status to other drugs, medicaments and biological substances; Z79.82 Long term (current) use of aspirin; Z79.4 Long term (current) use of insulin; Z88.1 Allergy status to other antibiotic agents; Z79.899 Other long term (current) drug therapy; Z87.440 Personal history of urinary (tract) infections; Z86.79 Personal history of other diseases of the circulatory system
CPT/HCPCS: 36415; 80053; 83880; 84484; 85025; 85610; 85730; 93005; 99285; 99285-25; A0425; A0429

== ENCOUNTER 2016-11-08 10:39 | Inpatient (IN) | payer MEDICARE, BC ==
[2016-11-08] MEDS ORDERED: Nitroglycerin 0.4 MG Tab.SL SL PRN (13:13)
[2016-11-08] MEDS ORDERED: traMADol 50 MG Tab PO PRN (13:15)
[2016-11-08] MEDS: Ferrous Sulfate 325 MG Tab PO SCH (19:40)
[2016-11-08] MEDS: Potassium Chloride 20 MEQ Tab.ER PO SCH (19:41)
[2016-11-08] MEDS: atorvaSTATin 40 MG Tab PO SCH (19:41)
[2016-11-08] MEDS: Insulin Isophane NPH, Human 100 Units/ML 10 ML Vial SUBCUT SCH (20:40)
[2016-11-09] MEDS: Loperamide 2 MG Cap PO PRN ×2 (00:48→19:41)
[2016-11-09] MEDS ORDERED: Lisinopril 20 MG Tab PO SCH ×2 (08:00→09:59)
[2016-11-09] MEDS ORDERED: Non-Formulary Medication 1 Each (Potassium Chloride [Potassium Chloride] 20 MEQ) PO SCH (08:00)
[2016-11-09] MEDS ORDERED: Non-Formulary Medication 1 Each (Magnesium Oxide [Magnesium] 400 MG) PO SCH (08:00)
[2016-11-09] MEDS ORDERED: CYANOCOBALAMIN PO SCH (08:00)
[2016-11-09] MEDS ORDERED: Non-Formulary Medication 1 Each (Lisinopril/Hydrochlorothiazide [Lisinopril-Hctz 20-12.5 M PO SCH (08:00)
[2016-11-09] MEDS: Hydrochlorothiazide 12.5 MG Cap PO SCH (08:35)
[2016-11-09] MEDS: Clopidogrel 75 MG Tab PO SCH (08:35)
[2016-11-09] MEDS: Cyanocobalamin (Vitamin B12) 1,000 MCG Tab PO SCH (08:35)
[2016-11-09] MEDS: Magnesium Oxide 400 MG Tab PO SCH (08:35)
[2016-11-09] MEDS: Aspirin 81 MG Tab.Chew PO SCH (08:35)
[2016-11-09] MEDS: Potassium Chloride 20 MEQ Tab.ER PO SCH ×2 (08:35→19:41)
[2016-11-09] MEDS: Ferrous Sulfate 325 MG Tab PO SCH ×2 (08:36→19:41)
[2016-11-09] MEDS: Insulin Isophane NPH, Human 100 Units/ML 10 ML Vial SUBCUT SCH ×2 (08:37→17:26)
[2016-11-09] MEDS: Isosorbide Mononitrate 30 MG Tab.ER PO SCH (08:56)
[2016-11-09] MEDS: Pantoprazole 40 MG Tab.CR PO SCH ×2 (09:35→19:41)
[2016-11-09] MEDS: Tuberculin, PPD 5 Units/0.1 ML 1 ML MDV IDERM ONE ×2 (16:05→16:11)
[2016-11-09] MEDS ORDERED: Tuberculin, PPD 5 Units/0.1 ML 1 ML MDV IDERM ONE (16:13)
[2016-11-09] MEDS: Metoprolol Succinate 100 MG Tab.ER PO SCH (19:01)
[2016-11-09] MEDS: Lisinopril 10 MG Tab PO SCH (19:01)
[2016-11-09] MEDS: atorvaSTATin 40 MG Tab PO SCH (19:41)
[2016-11-10] MEDS: Pantoprazole 40 MG Tab.CR PO SCH ×2 (06:03→21:03)
[2016-11-10] MEDS: Insulin Isophane NPH, Human 100 Units/ML 10 ML Vial SUBCUT SCH ×2 (08:44→17:08)
[2016-11-10] MEDS: Insulin Aspart 100 Units/ML 3 ML Pen SUBCUT SCH ×2 (08:46→17:10)
[2016-11-10] MEDS: Aspirin 81 MG Tab.Chew PO SCH (08:49)
[2016-11-10] MEDS: Potassium Chloride 20 MEQ Tab.ER PO SCH ×2 (08:50→21:03)
[2016-11-10] MEDS: Cyanocobalamin (Vitamin B12) 1,000 MCG Tab PO SCH (08:50)
[2016-11-10] MEDS: Ferrous Sulfate 325 MG Tab PO SCH ×2 (08:50→21:03)
[2016-11-10] MEDS: Hydrochlorothiazide 12.5 MG Cap PO SCH (08:51)
[2016-11-10] MEDS: Magnesium Oxide 400 MG Tab PO SCH (08:51)
[2016-11-10] MEDS: Lisinopril 10 MG Tab PO SCH (09:06)
[2016-11-10] MEDS: Isosorbide Mononitrate 30 MG Tab.ER PO SCH (09:07)
[2016-11-10] MEDS: Metoprolol Succinate 100 MG Tab.ER PO SCH (09:07)
[2016-11-10] MEDS: Clopidogrel 75 MG Tab PO SCH (09:07)
[2016-11-10] MEDS: traMADol 50 MG Tab PO PRN (11:44)
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
[2016-11-10] MEDS ORDERED: Calcium Carbonate 500 MG Tab.Chew PO ONE (17:40)
[2016-11-10] MEDS: atorvaSTATin 40 MG Tab PO SCH (21:03)
[2016-11-11] MEDS: Ondansetron 4 MG Tab.DIS PO PRN (00:21)
[2016-11-11] MEDS: Pantoprazole 40 MG Tab.CR PO SCH ×2 (06:16→20:45)
[2016-11-11] MEDS: Aspirin 81 MG Tab.Chew PO SCH (08:18)
[2016-11-11] MEDS: Ferrous Sulfate 325 MG Tab PO SCH ×2 (08:18→18:33)
[2016-11-11] MEDS: Insulin Aspart 100 Units/ML 3 ML Pen SUBCUT SCH ×2 (08:20→17:41)
[2016-11-11] MEDS: Insulin Isophane NPH, Human 100 Units/ML 10 ML Vial SUBCUT SCH ×2 (08:20→17:06)
[2016-11-11] MEDS: Isosorbide Mononitrate 30 MG Tab.ER PO SCH (08:29)
[2016-11-11] MEDS: Hydrochlorothiazide 12.5 MG Cap PO SCH (08:33)
[2016-11-11] MEDS: Potassium Chloride 20 MEQ Tab.ER PO SCH ×2 (08:33→18:35)
[2016-11-11] MEDS: Magnesium Oxide 400 MG Tab PO SCH (08:34)
[2016-11-11] MEDS: Clopidogrel 75 MG Tab PO SCH (08:35)
[2016-11-11] MEDS: Lisinopril 10 MG Tab PO SCH (08:36)
[2016-11-11] MEDS: Metoprolol Succinate 100 MG Tab.ER PO SCH (08:37)
[2016-11-11] MEDS: Cyanocobalamin (Vitamin B12) 1,000 MCG Tab PO SCH (08:38)
[2016-11-11] MEDS: Warfarin 2.5 MG Tab PO SCH (18:35)
[2016-11-11] MEDS: atorvaSTATin 40 MG Tab PO SCH (20:45)
[2016-11-12] MEDS: Ondansetron 4 MG Tab.DIS PO PRN (01:45)
[2016-11-12] MEDS: Pantoprazole 40 MG Tab.CR PO SCH ×3 (05:45→19:59)
[2016-11-12] MEDS ORDERED: Insulin Aspart 100 Units/ML 3 ML Pen SUBCUT SCH (08:00)
[2016-11-12] MEDS: Insulin Isophane NPH, Human 100 Units/ML 10 ML Vial SUBCUT SCH ×2 (08:22→17:13)
[2016-11-12] MEDS: Aspirin 81 MG Tab.Chew PO SCH (08:23)
[2016-11-12] MEDS: Metoprolol Succinate 100 MG Tab.ER PO SCH (08:23)
[2016-11-12] MEDS: Clopidogrel 75 MG Tab PO SCH (08:24)
[2016-11-12] MEDS: Potassium Chloride 20 MEQ Tab.ER PO SCH ×2 (08:24→17:15)
[2016-11-12] MEDS: Magnesium Oxide 400 MG Tab PO SCH (08:24)
[2016-11-12] MEDS: Hydrochlorothiazide 12.5 MG Cap PO SCH (08:25)
[2016-11-12] MEDS: Isosorbide Mononitrate 30 MG Tab.ER PO SCH (08:25)
[2016-11-12] MEDS: Ferrous Sulfate 325 MG Tab PO SCH ×2 (08:26→17:14)
[2016-11-12] MEDS: Cyanocobalamin (Vitamin B12) 1,000 MCG Tab PO SCH (08:27)
[2016-11-12] MEDS: Lisinopril 10 MG Tab PO SCH (08:42)
[2016-11-12] MEDS: Insulin Aspart 100 Units/ML 3 ML Pen SUBCUT SCH ×2 (17:14→20:44)
[2016-11-12] MEDS: Warfarin 2.5 MG Tab PO SCH (17:58)
[2016-11-12] MEDS: atorvaSTATin 40 MG Tab PO SCH (19:59)
[2016-11-13] MEDS: Pantoprazole 40 MG Tab.CR PO SCH ×2 (06:24→19:32)
[2016-11-13] MEDS: Aspirin 81 MG Tab.Chew PO SCH (07:56)
[2016-11-13] MEDS: Potassium Chloride 20 MEQ Tab.ER PO SCH ×2 (07:57→17:02)
[2016-11-13] MEDS: Cyanocobalamin (Vitamin B12) 1,000 MCG Tab PO SCH (07:57)
[2016-11-13] MEDS: Hydrochlorothiazide 12.5 MG Cap PO SCH (07:57)
[2016-11-13] MEDS: Magnesium Oxide 400 MG Tab PO SCH (07:58)
[2016-11-13] MEDS: Ferrous Sulfate 325 MG Tab PO SCH ×2 (07:58→17:01)
[2016-11-13] MEDS: Clopidogrel 75 MG Tab PO SCH (07:58)
--- NOTE | 2016-11-13 07:58 | PCM.SN ---
- Free Text/Narrative Note: EMERALD 8-17 Nurse notified this provider of blood sugar levels. Pt states at home if her blood sugar is less than 150 she holds her novolog insulin. Order to D/C novolog insulin and continue with NPH insulin bid.
[2016-11-13] MEDS: Insulin Aspart 100 Units/ML 3 ML Pen SUBCUT SCH ×4 (08:00→20:00)
[2016-11-13] MEDS: Lisinopril 10 MG Tab PO SCH ×2 (08:02→08:39)
[2016-11-13] MEDS: Metoprolol Succinate 100 MG Tab.ER PO SCH ×2 (08:02→08:40)
[2016-11-13] MEDS: Isosorbide Mononitrate 30 MG Tab.ER PO SCH (08:12)
[2016-11-13] MEDS: Insulin Isophane NPH, Human 100 Units/ML 10 ML Vial SUBCUT SCH ×2 (08:32→17:07)
--- NOTE | 2016-11-13 08:52 | PCM.PN ---
- General Info Date of Service: 11/13/16 Admission Dx/Problem (Free Text): Admission Diagnosis/Problem Admission Diagnosis/Problem Atrial fibrillation, post PE and DVT. Subjective Update: States feeling stronger and is wanting to have more PT exercises, if possible. States her exercises at home are more intense. Daughter is present and states she would like to tour Assisted Living for possible discharge location. Functional Status: Reports: Pain Controlled, Tolerating Diet - Review of Systems General: Reports: Weakness HEENT: Reports: No Symptoms Pulmonary: Reports: No Symptoms Cardiovascular: Reports: Dyspnea on Exertion Gastrointestinal: Reports: No Symptoms Genitourinary: Reports: Incontinence Musculoskeletal: Reports: No Symptoms Skin: Reports: Bruising Neurological: Reports: Weakness Psychiatric: Reports: No Symptoms - Patient Data Vitals - Most Recent: Last Vital Signs Temp 97.6 F 11/12/16 08:00 Pulse 108 H 11/13/16 08:40 Resp 18 11/11/16 20:00 BP 106/57 L 11/13/16 08:40 Pulse Ox 99 11/12/16 08:00 Weight - Most Recent: 205 lb Lab Results Last 24 Hours: Laboratory Results - last 24 hr 11/12/16 11/12/16 11/12/16 Range/Units 07:02 10:18 15:25 PT (9.0-11.5) sec INR (1.0-3.5) POC Glucose 108 106 124 H (74-110) mg/dL 11/12/16 11/13/16 11/13/16 Range/Units 19:02 06:54 07:10 PT 36.7 H (9.0-11.5) sec INR 3.9 H (1.0-3.5) POC Glucose 164 H 111 H (74-110) mg/dL Med Orders - Current: Current Medications Aspirin (Aspirin) 81 mg PO DAILY [facility] Last Admin: 11/13/16 07:56 Dose: 81 mg Atorvastatin Calcium (Lipitor) 40 mg PO BEDTIME [facility] Last Admin: 11/12/16 19:59 Dose: 40 mg Clopidogrel Bisulfate (Plavix) 75 mg PO DAILY [facility] Last Admin: 11/13/16 07:58 Dose: 75 mg Cyanocobalamin (Vitamin B12) 1,000 mcg PO DAILY [facility] Last Admin: 11/13/16 07:57 Dose: 1,000 mcg Ferrous Sulfate (Ferrous Sulfate) 325 mg PO BID@0800,1700 [facility] Last Admin: 11/13/16 07:58 Dose: 325 mg Hydrochlorothiazide (Hydrochlorothiazide) 12.5 mg PO DAILY [facility] Last Admin: 11/13/16 07:57 Dose: 12.5 mg Insulin Aspart (Novolog) 0 unit SUBCUT QID [facility] PRN Reason: Protocol Last Admin: 11/13/16 08:00 Dose: Not Given Insulin Human NPH (Humulin N) 9 unit SUBCUT BID@0800,1700 [facility] Last Admin: 11/13/16 08:32 Dose: 9 units Isosorbide Mononitrate (Imdur) 30 mg PO DAILY [facility] Last Admin: 11/13/16 08:12 Dose: 30 mg Lisinopril (Prinivil) 10 mg PO DAILY [facility] Last Admin: 11/13/16 08:39 Dose: 10 mg Loperamide HCl (Imodium) 2 mg PO QID PRN PRN Reason: DIARRHEA Last Admin: 11/09/16 19:41 Dose: 2 mg Magnesium Oxide (Magnesium Oxide) 400 mg PO DAILY [facility] Last Admin: 11/13/16 07:58 Dose: 400 mg Metoprolol Succinate (Toprol Xl) 100 mg PO DAILY [facility] Last Admin: 11/13/16 08:40 Dose: 100 mg Nitroglycerin (Nitrostat) 0.4 mg SL ASDIRECTED PRN PRN Reason: Chest Pain Ondansetron HCl (Zofran Odt) 4 mg PO Q8H PRN PRN Reason: Nausea/Vomiting Last Admin: 11/12/16 01:45 Dose: 4 mg [facility]: 11/13/16 06:24 Dose: 40 mg Potassium Chloride (Klor-Con M20) 20 meq PO BID@0800,1700 [facility] Last Admin: 11/13/16 07:57 Dose: 20 meq Tramadol HCl (Ultram) 50 mg PO Q6H PRN PRN Reason: moderate pain Last Admin: 11/10/16 11:44 Dose: 50 mg Warfarin Sodium (Coumadin) 2.5 mg PO DAILY@1800 [facility] Last Admin: 11/12/16 17:58 Dose: 2.5 mg Discontinued Medications Calcium Carbonate/Glycine (Tums) 1,000 mg PO ONETIME ONE Stop: 11/10/16 17:41 Last Admin: 11/10/16 18:07 Dose: 1,000 mg Ferrous Sulfate (Ferrous Sulfate) 325 mg PO BID [facility] Last Admin: 11/10/16 21:03 Dose: Not Given Insulin Aspart (Novolog) 5 unit SUBCUT BID@0800,1700 [facility] Last Admin: 11/11/16 17:41 Dose: Not Given Insulin Aspart (Novolog) 5 unit SUBCUT DAILY [facility] Last Admin: 11/12/16 10:58 Dose: Not Given Insulin Human NPH (Humulin N) 8 unit SUBCUT BIDAC [facility] Last Admin: 11/09/16 17:26 Dose: 10 units Lisinopril (Prinivil) 20 mg PO DAILY [facility] Potassium Chloride (Klor-Con M20) 20 meq PO BID [facility] Last Admin: 11/10/16 21:03 Dose: Not Given Tramadol HCl (Ultram) 50 mg PO Q6H PRN PRN Reason: MODERATE PAIN Tuberculin PPD (Aplisol) 5 unit IDERM ONETIME ONE Stop: 11/08/16 13:12 Last Admin: 11/09/16 16:11 Dose: Not Given Tuberculin PPD (Aplisol) 5 unit IDERM ONETIME ONE Stop: 11/09/16 16:14 Last Admin: 11/09/16 16:14 Dose: 5 unit - Exam Quality Assessment: DVT Prophylaxis. No: Central Line/PICC, Skin Breakdown General: Alert, Oriented HEENT: Pupils Equal Neck: Supple, Trachea Midline Lungs: Clear to Auscultation, Normal Respiratory Effort Cardiovascular: Regular Rate GI/Abdominal Exam: Normal Bowel Sounds, Soft, Non-Tender Back Exam: Normal Inspection Extremities: Normal Inspection Skin: Ecchymosis, Other (left upper arm ecchymosis) Neurological: Normal Speech Psy/Mental Status: Alert, Normal Affect, Normal Mood - Problem List & Annotations (1) Atrial fibrillation SNOMED Code(s): 85138667 Code(s): I48.91 - UNSPECIFIED ATRIAL FIBRILLATION Status: Acute Priority : High Current Visit: No Qualifiers: Atrial fibrillation type: chronic Qualified Code(s): I48.2 - Chronic atrial fibrillation (2) Diabetes mellitus SNOMED Code(s): 68730726 Code(s): E11.9 - TYPE 2 DIABETES MELLITUS WITHOUT COMPLICATIONS Status: Acute Priority: High Current Visit: Yes Qualifiers: Diabetes mellitus type: type 2 Diabetes mellitus residential insulin use: with continuous churn buttermaker use (3) Diarrhea SNOMED Code(s): 31565466 Code(s): R19.7 - DIARRHEA, UNSPECIFIED Status: Chronic Priority: Low Current Visit: No (4) Weakness generalized SNOMED Code(s): 20302026 Code(s): R53.1 - WEAKNESS Status: Acute Priority: High Current Visit: Yes - Problem List Review Problem List Initiated/Reviewed/Updated: Yes - My Orders Last 24 Hours: My Active Orders 11/13/16 08:00 BASIC METABOLIC PANEL,BMP [CHEM] Routine - Plan Plan:: Atrial Fibrillation: DVT precautions. BRUNILDA hose to lower extremities Full weight bearing. Medications as ordered. Restart Coumadin 2.5 mg PO daily. Diabetes Type 2: Monitor blood sugars ac and hs. Insulin as ordered. Heart healthy diet and consistent carb diet. Weakness: PT/OT continue with strengthening. Diarrhea: Assist pt to bathroom. Monitor skin for breakdown and apply barrier cream as needed. Medications as ordered for loose stool prn. Daughter present today for visit and is interested in touring the Assisted Living, locally. Information given to Yury Phelps for a tour in [place].
[2016-11-13] MEDS ORDERED: Warfarin 2 MG Tab PO SCH (18:00)
[2016-11-13] MEDS: atorvaSTATin 40 MG Tab PO SCH (19:32)
[2016-11-13] MEDS: traMADol 50 MG Tab PO PRN (19:35)
[2016-11-14] MEDS: Pantoprazole 40 MG Tab.CR PO SCH ×2 (06:26→20:13)
[2016-11-14] MEDS: Ferrous Sulfate 325 MG Tab PO SCH ×2 (07:30→16:59)
[2016-11-14] MEDS: Cyanocobalamin (Vitamin B12) 1,000 MCG Tab PO SCH (07:30)
[2016-11-14] MEDS: Isosorbide Mononitrate 30 MG Tab.ER PO SCH (07:30)
[2016-11-14] MEDS: Hydrochlorothiazide 12.5 MG Cap PO SCH (07:30)
[2016-11-14] MEDS: Potassium Chloride 20 MEQ Tab.ER PO SCH ×2 (07:30→16:59)
[2016-11-14] MEDS: Clopidogrel 75 MG Tab PO SCH (07:30)
[2016-11-14] MEDS: Magnesium Oxide 400 MG Tab PO SCH (07:30)
[2016-11-14] MEDS: Lisinopril 10 MG Tab PO SCH (07:31)
[2016-11-14] MEDS: Aspirin 81 MG Tab.Chew PO SCH (07:31)
[2016-11-14] MEDS: traMADol 50 MG Tab PO PRN ×2 (07:37→16:59)
[2016-11-14] MEDS ORDERED: Metoprolol Succinate 100 MG Tab.ER PO SCH (08:00)
[2016-11-14] MEDS: Insulin Isophane NPH, Human 100 Units/ML 10 ML Vial SUBCUT SCH ×2 (13:27→17:00)
[2016-11-14] MEDS: Insulin Aspart 100 Units/ML 3 ML Pen SUBCUT SCH ×4 (13:27→20:00)
[2016-11-14] MEDS: Metoprolol Succinate 50 MG Tab.ER PO SCH (13:30)
[2016-11-14] MEDS: atorvaSTATin 40 MG Tab PO SCH (20:13)
[2016-11-15] MEDS: Pantoprazole 40 MG Tab.CR PO SCH ×2 (06:10→20:44)
[2016-11-15] MEDS: Cyanocobalamin (Vitamin B12) 1,000 MCG Tab PO SCH (07:26)
[2016-11-15] MEDS: Aspirin 81 MG Tab.Chew PO SCH (07:26)
[2016-11-15] MEDS: Ferrous Sulfate 325 MG Tab PO SCH ×2 (07:26→17:30)
[2016-11-15] MEDS: Potassium Chloride 20 MEQ Tab.ER PO SCH ×2 (07:26→17:30)
[2016-11-15] MEDS: Clopidogrel 75 MG Tab PO SCH (07:26)
[2016-11-15] MEDS: Magnesium Oxide 400 MG Tab PO SCH (07:26)
[2016-11-15] MEDS: Insulin Aspart 100 Units/ML 3 ML Pen SUBCUT SCH ×4 (07:39→20:44)
[2016-11-15] MEDS: Metoprolol Succinate 50 MG Tab.ER PO SCH (07:54)
[2016-11-15] MEDS: Isosorbide Mononitrate 30 MG Tab.ER PO SCH (07:55)
[2016-11-15] MEDS: Lisinopril 10 MG Tab PO SCH (07:55)
[2016-11-15] MEDS: Hydrochlorothiazide 12.5 MG Cap PO SCH (07:55)
[2016-11-15] MEDS: Insulin Isophane NPH, Human 100 Units/ML 10 ML Vial SUBCUT SCH (08:17)
[2016-11-15] MEDS: Ondansetron 4 MG Tab.DIS PO PRN (16:10)
[2016-11-15] MEDS: atorvaSTATin 40 MG Tab PO SCH (20:44)
[2016-11-16] MEDS: Pantoprazole 40 MG Tab.CR PO SCH ×2 (06:40→20:22)
--- NOTE | 2016-11-16 08:44 | PCM.SN ---
- Free Text/Narrative Note: Face to face visit with pt today. States she is stronger and ambulating and exercising more. States if she continues with strengthening she is hopeful to be discharged next week. States some stomach upset persists with occasional nausea and vomitting. States she has a little acid reflux, that makes her cough and feels weak and then has emesis. States soft formed stools more often now. NurseMars reports pt did have some sky blood with a clot noted in stool after BM last night. Edema in improved to lower legs bilaterally. Continue to adjust Coumadin dose and continue with strengthening for possible discharge in next 1-2 weeks. States he daughter is sick now and states she has pneumonia, so she can't stay with her until she is better.
[2016-11-16] MEDS: Insulin Isophane NPH, Human 100 Units/ML 10 ML Vial SUBCUT SCH ×3 (08:52→17:37)
[2016-11-16] MEDS: Aspirin 81 MG Tab.Chew PO SCH (08:58)
[2016-11-16] MEDS: Potassium Chloride 20 MEQ Tab.ER PO SCH ×2 (08:59→20:56)
[2016-11-16] MEDS: Hydrochlorothiazide 12.5 MG Cap PO SCH (08:59)
[2016-11-16] MEDS: Cyanocobalamin (Vitamin B12) 1,000 MCG Tab PO SCH (08:59)
[2016-11-16] MEDS: Ferrous Sulfate 325 MG Tab PO SCH ×2 (08:59→20:55)
[2016-11-16] MEDS: Magnesium Oxide 400 MG Tab PO SCH (08:59)
[2016-11-16] MEDS: Metoprolol Succinate 50 MG Tab.ER PO SCH (09:00)
[2016-11-16] MEDS: Isosorbide Mononitrate 30 MG Tab.ER PO SCH (09:01)
[2016-11-16] MEDS: Lisinopril 10 MG Tab PO SCH (09:01)
[2016-11-16] MEDS: Clopidogrel 75 MG Tab PO SCH (09:01)
[2016-11-16] MEDS: Insulin Aspart 100 Units/ML 3 ML Pen SUBCUT SCH ×4 (09:06→20:56)
[2016-11-16] MEDS: atorvaSTATin 40 MG Tab PO SCH (20:23)
[2016-11-16] MEDS: traMADol 50 MG Tab PO PRN (21:45)
[2016-11-17] MEDS: Pantoprazole 40 MG Tab.CR PO SCH ×2 (06:26→20:49)
[2016-11-17] MEDS: Magnesium Oxide 400 MG Tab PO SCH (07:54)
[2016-11-17] MEDS: Ferrous Sulfate 325 MG Tab PO SCH ×2 (07:54→17:32)
[2016-11-17] MEDS: Clopidogrel 75 MG Tab PO SCH (07:54)
[2016-11-17] MEDS: Cyanocobalamin (Vitamin B12) 1,000 MCG Tab PO SCH (07:54)
[2016-11-17] MEDS: Potassium Chloride 20 MEQ Tab.ER PO SCH ×2 (07:54→17:32)
[2016-11-17] MEDS: Aspirin 81 MG Tab.Chew PO SCH (07:54)
[2016-11-17] MEDS: Hydrochlorothiazide 12.5 MG Cap PO SCH (08:12)
[2016-11-17] MEDS: Isosorbide Mononitrate 30 MG Tab.ER PO SCH (08:12)
[2016-11-17] MEDS: Lisinopril 10 MG Tab PO SCH (08:13)
[2016-11-17] MEDS: Metoprolol Succinate 50 MG Tab.ER PO SCH (08:13)
[2016-11-17] MEDS: Insulin Aspart 100 Units/ML 3 ML Pen SUBCUT SCH ×4 (08:20→20:47)
[2016-11-17] MEDS: Insulin Isophane NPH, Human 100 Units/ML 10 ML Vial SUBCUT SCH ×2 (08:22→17:31)
[2016-11-17] MEDS: atorvaSTATin 40 MG Tab PO SCH (20:49)
[2016-11-18] MEDS: Pantoprazole 40 MG Tab.CR PO SCH ×2 (06:47→17:32)
[2016-11-18] MEDS: Lisinopril 10 MG Tab PO SCH (07:52)
[2016-11-18] MEDS: Potassium Chloride 20 MEQ Tab.ER PO SCH ×2 (07:53→16:24)
[2016-11-18] MEDS: Aspirin 81 MG Tab.Chew PO SCH (07:53)
[2016-11-18] MEDS: Ferrous Sulfate 325 MG Tab PO SCH ×2 (07:53→16:25)
[2016-11-18] MEDS: Magnesium Oxide 400 MG Tab PO SCH (07:53)
[2016-11-18] MEDS: Hydrochlorothiazide 12.5 MG Cap PO SCH (07:53)
[2016-11-18] MEDS: Insulin Isophane NPH, Human 100 Units/ML 10 ML Vial SUBCUT SCH ×2 (08:00→17:33)
[2016-11-18] MEDS: Cyanocobalamin (Vitamin B12) 1,000 MCG Tab PO SCH (08:35)
[2016-11-18] MEDS: Isosorbide Mononitrate 30 MG Tab.ER PO SCH (08:35)
[2016-11-18] MEDS: Insulin Aspart 100 Units/ML 3 ML Pen SUBCUT SCH ×4 (08:36→19:53)
[2016-11-18] MEDS: Metoprolol Succinate 50 MG Tab.ER PO SCH (09:10)
[2016-11-18] MEDS: Clopidogrel 75 MG Tab PO SCH (09:11)
[2016-11-18] MEDS: traMADol 50 MG Tab PO PRN (13:15)
[2016-11-18] MEDS: atorvaSTATin 40 MG Tab PO SCH (19:37)
[2016-11-18] MEDS: Ondansetron 4 MG Tab.DIS PO PRN (19:38)
[2016-11-19] MEDS: Pantoprazole 40 MG Tab.CR PO SCH ×2 (07:04→17:21)
[2016-11-19] MEDS: Lisinopril 10 MG Tab PO SCH (08:35)
[2016-11-19] MEDS: Isosorbide Mononitrate 30 MG Tab.ER PO SCH (08:35)
[2016-11-19] MEDS: Aspirin 81 MG Tab.Chew PO SCH (08:35)
[2016-11-19] MEDS: Insulin Aspart 100 Units/ML 3 ML Pen SUBCUT SCH ×4 (08:35→20:01)
[2016-11-19] MEDS: Hydrochlorothiazide 12.5 MG Cap PO SCH (08:35)
[2016-11-19] MEDS: Metoprolol Succinate 50 MG Tab.ER PO SCH (08:35)
[2016-11-19] MEDS: Cyanocobalamin (Vitamin B12) 1,000 MCG Tab PO SCH (08:37)
[2016-11-19] MEDS: Clopidogrel 75 MG Tab PO SCH (08:38)
[2016-11-19] MEDS: Potassium Chloride 20 MEQ Tab.ER PO SCH ×2 (08:38→17:19)
[2016-11-19] MEDS: Magnesium Oxide 400 MG Tab PO SCH (08:38)
[2016-11-19] MEDS: Ferrous Sulfate 325 MG Tab PO SCH ×2 (08:39→17:19)
[2016-11-19] MEDS: Insulin Isophane NPH, Human 100 Units/ML 10 ML Vial SUBCUT SCH ×2 (17:23→21:45)
[2016-11-19] MEDS: atorvaSTATin 40 MG Tab PO SCH (19:36)
[2016-11-20] MEDS: Hydrochlorothiazide 12.5 MG Cap PO SCH (08:43)
[2016-11-20] MEDS: Pantoprazole 40 MG Tab.CR PO SCH ×2 (08:43→17:14)
[2016-11-20] MEDS: Clopidogrel 75 MG Tab PO SCH (08:43)
[2016-11-20] MEDS: Cyanocobalamin (Vitamin B12) 1,000 MCG Tab PO SCH (08:43)
[2016-11-20] MEDS: Aspirin 81 MG Tab.Chew PO SCH (08:43)
[2016-11-20] MEDS: Potassium Chloride 20 MEQ Tab.ER PO SCH ×2 (08:44→17:43)
[2016-11-20] MEDS: Ferrous Sulfate 325 MG Tab PO SCH ×2 (08:44→17:43)
[2016-11-20] MEDS: Magnesium Oxide 400 MG Tab PO SCH (08:44)
[2016-11-20] MEDS: Lisinopril 10 MG Tab PO SCH (08:44)
[2016-11-20] MEDS: Insulin Aspart 100 Units/ML 3 ML Pen SUBCUT SCH ×4 (08:45→19:40)
[2016-11-20] MEDS: Isosorbide Mononitrate 30 MG Tab.ER PO SCH (08:45)
[2016-11-20] MEDS: Metoprolol Succinate 50 MG Tab.ER PO SCH (08:53)
[2016-11-20] MEDS: Insulin Isophane NPH, Human 100 Units/ML 10 ML Vial SUBCUT SCH ×2 (08:55→17:43)
[2016-11-20] MEDS: traMADol 50 MG Tab PO PRN ×2 (09:31→18:48)
[2016-11-20] MEDS: Ondansetron 4 MG Tab.DIS PO PRN (13:02)
[2016-11-20] MEDS: atorvaSTATin 40 MG Tab PO SCH (19:38)
[2016-11-21] MEDS: Pantoprazole 40 MG Tab.CR PO SCH ×2 (06:47→16:38)
[2016-11-21] MEDS: Cyanocobalamin (Vitamin B12) 1,000 MCG Tab PO SCH (08:27)
[2016-11-21] MEDS: Clopidogrel 75 MG Tab PO SCH (08:27)
[2016-11-21] MEDS: Magnesium Oxide 400 MG Tab PO SCH ×3 (08:27→14:25)
[2016-11-21] MEDS: Ferrous Sulfate 325 MG Tab PO SCH ×2 (08:27→17:15)
[2016-11-21] MEDS: Aspirin 81 MG Tab.Chew PO SCH (08:27)
[2016-11-21] MEDS: Hydrochlorothiazide 12.5 MG Cap PO SCH (08:28)
[2016-11-21] MEDS: Potassium Chloride 20 MEQ Tab.ER PO SCH ×2 (08:28→17:15)
[2016-11-21] MEDS: Lisinopril 10 MG Tab PO SCH (08:28)
[2016-11-21] MEDS: Metoprolol Succinate 50 MG Tab.ER PO SCH (08:29)
[2016-11-21] MEDS: Isosorbide Mononitrate 30 MG Tab.ER PO SCH (08:29)
[2016-11-21] MEDS: traMADol 50 MG Tab PO PRN (08:30)
[2016-11-21] MEDS: Insulin Aspart 100 Units/ML 3 ML Pen SUBCUT SCH ×4 (08:40→20:59)
[2016-11-21] MEDS: Insulin Isophane NPH, Human 100 Units/ML 10 ML Vial SUBCUT SCH ×2 (08:46→17:23)
--- NOTE | 2016-11-21 09:13 | PCM.PN ---
- General Info Date of Service: 11/21/16 Admission Dx/Problem (Free Text): Admission Diagnosis/Problem Admission Diagnosis/Problem Atrial fibrillation, post PE and DVT. Subjective Update: Pt is feeling stronger and states she is ready for discharge with assistance. This am she does report low back pain and pain to abdomen after having BM. States with weather changes and winter she notes some back pain. States she is as strong today as she has ever been. She reports family is working on discharge to assisted living in [place] or [place]. States she is uncertain which place at this time. Functional Status: Reports: Pain Controlled, Tolerating Diet, Ambulating Pain Score: 6 - Review of Systems General: Reports: No Symptoms Pulmonary: Reports: No Symptoms Cardiovascular: Denies: Chest Pain, Lightheadedness Gastrointestinal: Reports: Abdominal Pain, Nausea Genitourinary: Reports: Incontinence Musculoskeletal: Reports: Back Pain Skin: Reports: Bruising Neurological: Reports: No Symptoms Psychiatric: Reports: No Symptoms - Patient Data Vitals - Most Recent: Last Vital Signs Temp 98 F 11/20/16 19:43 Pulse 62 11/21/16 08:29 Resp 20 11/20/16 19:43 BP 126/100 H 11/21/16 08:29 Pulse Ox 100 11/20/16 19:43 Weight - Most Recent: 193 lb 2 oz Lab Results Last 24 Hours: Laboratory Results - last 24 hr 11/20/16 11/20/16 11/20/16 Range/Units 07:32 08:52 10:57 WBC (4.0-11.0) K/uL RBC (3.80-5.80) M/uL Hgb (11.5-16.5) g/dL Hct (37.0-47.0) % MCV (76-96) fL MCH (27.0-32.0) pg MCHC (31.0-35.0) g/dL RDW (11.0-16.0) % Plt Count (150-500) K/uL MPV (6.0-10.0) fL Neut % (Auto) (45.0-70.0) % Lymph % (Auto) (20.0-40.0) % [place] % (Auto) (3.0-10.0) % Eos % (Auto) (1.0-5.0) % Baso % (Auto) (0.0-0.5) % Neut # (Auto) (2.00-7.50) K/uL Lymph # (Auto) (1.50-4.00) K/uL [place] # (Auto) (0.20-0.80) K/uL Eos # (Auto) (0.04-0.40) K/uL Baso # (Auto) (0.02-0.10) K/uL Sodium (136-145) mmol/L Potassium (3.5-5.1) mmol/L Chloride (98-107) mmol/L Carbon Dioxide (21.0-32.0) mmol/L Anion Gap (5.0-15.0) mmol/L BUN (8-26) mg/dL Creatinine (0.55-1.02) mg/dL Est Cr Clr Drug Dosing mL/min Estimated GFR (MDRD) (>60) MLS/MIN BUN/Creatinine Ratio (6-25) Glucose (74-100) mg/dL POC Glucose 133 H 182 H 142 H (74-110) mg/dL Calcium (8.5-10.1) mg/dL Magnesium (1.8-2.4) mg/dL 11/20/16 11/20/16 11/21/16 Range/Units 16:04 18:39 07:15 WBC 7.8 D (4.0-11.0) K/uL RBC 5.05 (3.80-5.80) M/uL Hgb 13.6 (11.5-16.5) g/dL Hct 41.5 (37.0-47.0) % MCV 82 (76-96) fL MCH 26.9 L (27.0-32.0) pg MCHC 32.8 (31.0-35.0) g/dL RDW 17.2 H (11.0-16.0) % Plt Count 281 (150-500) K/uL MPV 9.5 (6.0-10.0) fL Neut % (Auto) 54.5 (45.0-70.0) % Lymph % (Auto) 37.1 (20.0-40.0) % [place] % (Auto) 6.7 (3.0-10.0) % Eos % (Auto) 1.4 (1.0-5.0) % Baso % (Auto) 0.3 (0.0-0.5) % Neut # (Auto) 4.24 (2.00-7.50) K/uL Lymph # (Auto) 2.88 (1.50-4.00) K/uL [place] # (Auto) 0.52 (0.20-0.80) K/uL Eos # (Auto) 0.11 (0.04-0.40) K/uL Baso # (Auto) 0.02 (0.02-0.10) K/uL Sodium (136-145) mmol/L Potassium (3.5-5.1) mmol/L Chloride (98-107) mmol/L Carbon Dioxide (21.0-32.0) mmol/L Anion Gap (5.0-15.0) mmol/L BUN (8-26) mg/dL Creatinine (0.55-1.02) mg/dL Est Cr Clr Drug Dosing mL/min Estimated GFR (MDRD) (>60) MLS/MIN BUN/Creatinine Ratio (6-25) Glucose (74-100) mg/dL POC Glucose 136 H 145 H (74-110) mg/dL Calcium (8.5-10.1) mg/dL Magnesium (1.8-2.4) mg/dL 11/21/16 11/21/16 Range/Units 07:15 07:37 WBC (4.0-11.0) K/uL RBC (3.80-5.80) M/uL Hgb (11.5-16.5) g/dL Hct (37.0-47.0) % MCV (76-96) fL MCH (27.0-32.0) pg MCHC (31.0-35.0) g/dL RDW (11.0-16.0) % Plt Count (150-500) K/uL MPV (6.0-10.0) fL Neut % (Auto) (45.0-70.0) % Lymph % (Auto) (20.0-40.0) % [place] % (Auto) (3.0-10.0) % Eos % (Auto) (1.0-5.0) % Baso % (Auto) (0.0-0.5) % Neut # (Auto) (2.00-7.50) K/uL Lymph # (Auto) (1.50-4.00) K/uL [place] # (Auto) (0.20-0.80) K/uL Eos # (Auto) (0.04-0.40) K/uL Baso # (Auto) (0.02-0.10) K/uL Sodium 129 L (136-145) mmol/L Potassium 4.6 (3.5-5.1) mmol/L Chloride 96 L (98-107) mmol/L Carbon Dioxide 25.2 (21.0-32.0) mmol/L Anion Gap 12.4 (5.0-15.0) mmol/L BUN 27 H D (8-26) mg/dL Creatinine 1.49 H (0.55-1.02) mg/dL Est Cr Clr Drug Dosing 27.82 mL/min Estimated GFR (MDRD) 33 L (>60) MLS/MIN BUN/Creatinine Ratio 18.1 (6-25) Glucose 98 (74-100) mg/dL POC Glucose 105 (74-110) mg/dL Calcium 9.1 (8.5-10.1) mg/dL Magnesium 2.7 H D (1.8-2.4) mg/dL Med Orders - Current: Current Medications Aspirin (Aspirin) 81 mg PO DAILY [facility] Last Admin: 11/21/16 08:27 Dose: 81 mg Atorvastatin Calcium (Lipitor) 40 mg PO BEDTIME [facility] Last Admin: 11/20/16 19:38 Dose: 40 mg Clopidogrel Bisulfate (Plavix) 75 mg PO DAILY [facility] Last Admin: 11/21/16 08:27 Dose: 75 mg Cyanocobalamin (Vitamin B12) 1,000 mcg PO DAILY [facility] Last Admin: 11/21/16 08:27 Dose: 1,000 mcg Ferrous Sulfate (Ferrous Sulfate) 325 mg PO BID@0800,1700 [facility] Last Admin: 11/21/16 08:27 Dose: 325 mg Hydrochlorothiazide (Hydrochlorothiazide) 12.5 mg PO DAILY [facility] Last Admin: 11/21/16 08:28 Dose: 12.5 mg Sodium Chloride (Normal Saline) 1,000 mls @ 125 mls/hr IV ASDIRECTED [facility] Insulin Aspart (Novolog) 0 unit SUBCUT QID [facility] PRN Reason: Protocol Last Admin: 11/21/16 08:40 Dose: Not Given Insulin Human NPH (Humulin N) 9 unit SUBCUT BID@0800,1700 [facility] Last Admin: 11/21/16 08:46 Dose: 9 units Isosorbide Mononitrate (Imdur) 30 mg PO DAILY [facility] Last Admin: 11/21/16 08:29 Dose: 30 mg Lisinopril (Prinivil) 10 mg PO DAILY [facility] Last Admin: 11/21/16 08:28 Dose: 10 mg Loperamide HCl (Imodium) 2 mg PO QID PRN PRN Reason: DIARRHEA Last Admin: 11/09/16 19:41 Dose: 2 mg Magnesium Oxide (Magnesium Oxide) 200 mg PO DAILY [facility] Metoprolol Succinate (Toprol Xl) 50 mg PO DAILY [facility] Last Admin: 11/21/16 08:29 Dose: 50 mg Nitroglycerin (Nitrostat) 0.4 mg SL ASDIRECTED PRN PRN Reason: Chest Pain Ondansetron HCl (Zofran Odt) 4 mg PO Q8H PRN PRN Reason: Nausea/Vomiting Last Admin: 11/20/16 13:02 Dose: 4 mg Pantoprazole Sodium (Protonix) 40 mg PO 0700,1600 [facility] Last Admin: 11/21/16 06:47 Dose: 40 mg Potassium Chloride (Klor-Con M20) 20 meq PO BID@0800,1700 [facility] Last Admin: 11/21/16 08:28 Dose: 20 meq Tramadol HCl (Ultram) 50 mg PO Q6H PRN PRN Reason: moderate pain Last Admin: 11/21/16 08:30 Dose: 50 mg Tuberculin PPD (Aplisol) 5 unit IDERM ONETIME [facility] Warfarin Sodium (Coumadin) 1 mg PO DAILY@1800 [facility] Last Admin: 11/20/16 17:50 Dose: 1 mg Discontinued Medications Calcium Carbonate/Glycine (Tums) 1,000 mg PO ONETIME ONE Stop: 11/10/16 17:41 Last Admin: 11/10/16 18:07 Dose: 1,000 mg Ferrous Sulfate (Ferrous Sulfate) 325 mg PO BID [facility] Last Admin: 11/10/16 21:03 Dose: Not Given Insulin Aspart (Novolog) 5 unit SUBCUT BID@0800,1700 [facility] Last Admin: 11/11/16 17:41 Dose: Not Given Insulin Aspart (Novolog) 5 unit SUBCUT DAILY [facility] Last Admin: 11/12/16 10:58 Dose: Not Given Insulin Human NPH (Humulin N) 8 unit SUBCUT BIDAC [facility] Last Admin: 11/09/16 17:26 Dose: 10 units Lisinopril (Prinivil) 20 mg PO DAILY [facility] Magnesium Oxide (Magnesium Oxide) 400 mg PO DAILY [facility] Last Admin: 11/21/16 08:48 Dose: 200 mg Metoprolol Succinate (Toprol Xl) 100 mg PO DAILY [facility] Last Admin: 11/13/16 08:40 Dose: 100 mg Metoprolol Succinate (Toprol Xl) 50 mg PO DAILY [facility] Pantoprazole Sodium (Protonix) 40 mg PO BIDAC [facility] Last Admin: 11/17/16 20:49 Dose: 40 mg Potassium Chloride (Klor-Con M20) 20 meq PO BID [facility] Last Admin: 11/10/16 21:03 Dose: Not Given Tramadol HCl (Ultram) 50 mg PO Q6H PRN PRN Reason: MODERATE PAIN Tuberculin PPD (Aplisol) 5 unit IDERM ONETIME ONE Stop: 11/08/16 13:12 Last Admin: 11/09/16 16:11 Dose: Not Given Tuberculin PPD (Aplisol) 5 unit IDERM ONETIME ONE Stop: 11/09/16 16:14 Last Admin: 11/09/16 16:14 Dose: 5 unit Warfarin Sodium (Coumadin) 2.5 mg PO DAILY@1800 [facility] Last Admin: 11/12/16 17:58 Dose: 2.5 mg Warfarin Sodium (Coumadin) 2 mg PO DAILY@1800 [facility] Last Admin: 11/13/16 17:19 Dose: 2 mg - Exam General: Alert, Oriented Neck: Supple, Trachea Midline Lungs: Normal Respiratory Effort GI/Abdominal Exam: Soft, Non-Tender Skin: Warm, Dry, Intact - Problem List & Annotations (1) Atrial fibrillation SNOMED Code(s): 06090987 Code(s): I48.91 - UNSPECIFIED ATRIAL FIBRILLATION Status: Acute Priority : High Current Visit: No Qualifiers: Atrial fibrillation type: chronic Qualified Code(s): I48.2 - Chronic atrial fibrillation (2) Diabetes mellitus SNOMED Code(s): 34749274 Code(s): E11.9 - TYPE 2 DIABETES MELLITUS WITHOUT COMPLICATIONS Status: Acute Priority: High Current Visit: Yes Qualifiers: Diabetes mellitus type: type 2 Diabetes mellitus oil heaterman insulin use: with snf use (3) Diarrhea SNOMED Code(s): 96341351 Code(s): R19.7 - DIARRHEA, UNSPECIFIED Status: Chronic Priority: Low Current Visit: No (4) Weakness generalized SNOMED Code(s): 94220867 Code(s): R53.1 - WEAKNESS Status: Acute Priority: High Current Visit: Yes - Problem List Review Problem List Initiated/Reviewed/Updated: Yes - My Orders Last 24 Hours: My Active Orders 11/21/16 08:00 Magnesium Oxide 200 mg PO DAILY 11/21/16 09:15 Sodium Chloride 0.9% @ 125 MLS/HR (1000ml) Sodium Chloride 0.9% [Normal Saline] 1,000 ml IV ASDIRECTED 11/23/16 08:00 Tuberculin, PPD [Aplisol] 5 unit IDERM ONETIME - Assessment Assessment:: Weakness to upper and lower extremities, continue to work with PT/OT for strengthening to increase independence with positioning in bed and ambulation. Hx PE and atrial fibrillation: Continue with adjustment of Warfarin dose. PT/INR monitored every 48-72 hour with adjustment of medication. Pt to visit parachute taper this week for follow-up post stent placement. Nausea with vomitting: Intermittent nausea with vomiting and controlled with use of Zofran prn. Diabetes type 2: Monitor blood sugars before meals and at hs. NPH insulin bid and Novolog per sliding scale infrequently. Continue with consistent carb diet. - Plan Plan:: Atrial Fibrillation: DVT precautions. BRUNILDA hose to lower extremities Full weight bearing. Medications as ordered. Restart Coumadin 2.5 mg PO daily. Diabetes Type 2: Monitor blood sugars ac and hs. Insulin as ordered. Heart healthy diet and consistent carb diet. Weakness: PT/OT continue with strengthening. Diarrhea: Assist pt to bathroom. Monitor skin for breakdown and apply barrier cream as needed. Medications as ordered for loose stool prn. Daughter present today for visit and is interested in touring the [facility], locally. Information given to Yury Phelps for a tour in [employer]. 11/21/2016 Pt is sitting up in hospital bed. She had just been up in room with stand by assist to bathroom. Lab results reviewed. Low sodium today and magnesium elevated. PT/INR level 2.1. Weakness to upper and lower extremities, continue to work with PT/OT for strengthening to increase independence with positioning in bed and ambulation. Hx PE and atrial fibrillation: Continue with adjustment of Warfarin dose. PT/INR monitored every 48-72 hour with adjustment of medication. Pt to visit parachute taper this week for follow-up post stent placement. Nausea with vomitting: Intermittent nausea with vomiting and controlled with use of Zofran prn. Diabetes type 2: Monitor blood sugars before meals and at hs. NPH insulin bid and Novolog per sliding scale infrequently. Continue with consistent carb diet. Plan to discharge in 1-2 weeks to Assisted Living in [place] with continued monitoring of Diabetes, atrial fibrillation, medications, PT/OT as needed and PT /INR with warfarin adjustments.
[2016-11-21] MEDS ORDERED: Sodium Chloride 0.9% 1,000 ML IV SCH (09:15)
[2016-11-21] MEDS ORDERED: Warfarin 3 MG Tab PO SCH (18:00)
[2016-11-21] MEDS: atorvaSTATin 40 MG Tab PO SCH (19:48)
[2016-11-22] MEDS: Pantoprazole 40 MG Tab.CR PO SCH ×2 (06:37→17:40)
[2016-11-22] MEDS: Aspirin 81 MG Tab.Chew PO SCH (08:31)
[2016-11-22] MEDS: Clopidogrel 75 MG Tab PO SCH (08:31)
[2016-11-22] MEDS: Hydrochlorothiazide 12.5 MG Cap PO SCH (08:31)
[2016-11-22] MEDS: Magnesium Oxide 400 MG Tab PO SCH (08:32)
[2016-11-22] MEDS: Lisinopril 10 MG Tab PO SCH (08:32)
[2016-11-22] MEDS: Ferrous Sulfate 325 MG Tab PO SCH ×2 (08:33→17:40)
[2016-11-22] MEDS: Potassium Chloride 20 MEQ Tab.ER PO SCH ×2 (08:33→17:40)
[2016-11-22] MEDS: Metoprolol Succinate 50 MG Tab.ER PO SCH (08:33)
[2016-11-22] MEDS: Cyanocobalamin (Vitamin B12) 1,000 MCG Tab PO SCH (08:34)
[2016-11-22] MEDS: Isosorbide Mononitrate 30 MG Tab.ER PO SCH (08:34)
[2016-11-22] MEDS: Insulin Aspart 100 Units/ML 3 ML Pen SUBCUT SCH ×4 (08:39→22:40)
[2016-11-22] MEDS: Insulin Isophane NPH, Human 100 Units/ML 10 ML Vial SUBCUT SCH ×2 (09:25→19:03)
[2016-11-22] MEDS: Ondansetron 4 MG Tab.DIS PO PRN (15:22)
[2016-11-22] MEDS: atorvaSTATin 40 MG Tab PO SCH (20:26)
[2016-11-22] MEDS: Sodium Chloride 0.9% 10 ML Syringe FLUSH SCH ×2 (20:34→22:43)
[2016-11-22] MEDS: Loperamide 2 MG Cap PO PRN (20:36)
[2016-11-23] MEDS: Loperamide 2 MG Cap PO PRN ×3 (00:28→20:01)
[2016-11-23] MEDS: Isosorbide Mononitrate 30 MG Tab.ER PO SCH (06:00)
[2016-11-23] MEDS: Pantoprazole 40 MG Tab.CR PO SCH ×2 (06:41→18:22)
[2016-11-23] MEDS: Aspirin 81 MG Tab.Chew PO SCH (07:16)
[2016-11-23] MEDS: Metoprolol Succinate 50 MG Tab.ER PO SCH (07:17)
[2016-11-23] MEDS: Potassium Chloride 20 MEQ Tab.ER PO SCH ×2 (07:17→18:21)
[2016-11-23] MEDS: Magnesium Oxide 400 MG Tab PO SCH (07:17)
[2016-11-23] MEDS: Ferrous Sulfate 325 MG Tab PO SCH ×2 (07:18→18:21)
[2016-11-23] MEDS: Lisinopril 10 MG Tab PO SCH (07:18)
[2016-11-23] MEDS: Hydrochlorothiazide 12.5 MG Cap PO SCH (07:18)
[2016-11-23] MEDS: Clopidogrel 75 MG Tab PO SCH (07:18)
[2016-11-23] MEDS: Cyanocobalamin (Vitamin B12) 1,000 MCG Tab PO SCH (07:19)
[2016-11-23] MEDS: Insulin Isophane NPH, Human 100 Units/ML 10 ML Vial SUBCUT SCH ×2 (07:19→18:28)
[2016-11-23] MEDS: Insulin Aspart 100 Units/ML 3 ML Pen SUBCUT SCH ×3 (07:21→20:13)
[2016-11-23] MEDS ORDERED: Tuberculin, PPD 5 Units/0.1 ML 1 ML MDV IDERM SCH (08:00)
[2016-11-23] MEDS: Sodium Chloride 0.9% 10 ML Syringe FLUSH SCH (18:27)
[2016-11-23] MEDS: atorvaSTATin 40 MG Tab PO SCH (20:01)
[2016-11-23] MEDS: traMADol 50 MG Tab PO PRN (20:01)
[2016-11-24] MEDS: Sodium Chloride 0.9% 10 ML Syringe FLUSH SCH ×3 (03:17→15:32)
[2016-11-24] MEDS: Loperamide 2 MG Cap PO PRN (06:45)
[2016-11-24] MEDS: Pantoprazole 40 MG Tab.CR PO SCH ×2 (06:45→17:26)
[2016-11-24] MEDS: Aspirin 81 MG Tab.Chew PO SCH (07:40)
[2016-11-24] MEDS: Ferrous Sulfate 325 MG Tab PO SCH ×2 (07:40→17:26)
[2016-11-24] MEDS: Cyanocobalamin (Vitamin B12) 1,000 MCG Tab PO SCH (07:40)
[2016-11-24] MEDS: Magnesium Oxide 400 MG Tab PO SCH (07:40)
[2016-11-24] MEDS: Clopidogrel 75 MG Tab PO SCH (07:41)
[2016-11-24] MEDS: Insulin Aspart 100 Units/ML 3 ML Pen SUBCUT SCH ×4 (07:41→22:12)
[2016-11-24] MEDS: Potassium Chloride 20 MEQ Tab.ER PO SCH (07:41)
--- NOTE | 2016-11-24 09:22 | PCM.SN ---
- Free Text/Narrative Note: Pt is feeling tired today after her visit to [facility] staff officer in [place]. Cement Mason Helper recommended stopping Imdur and HCTZ and decrease dose Metoprolol to 75 mg PO daily. INR today was 2.5mg. Blood sugar 77 today per nurse POC and pt feeling weak. Plan to decrease NPH insulin in pm to 7 units daily and will keep am dose at 9 units. Lungs clear to auscultation, no peripheral edema noted, heart sounds S1,S2 regular. Abdomen is soft and nondistended. Will recheck BMP and magnesium level after IV bolus 11-21-16 and decrease of Magnesium from 400 mg to 200mg. Pt states incontinent of BM early this am, but states she did eat at [employer] yesterday and had a [place]. States she has been craving this food for quite some time. Discharge plan: Discharge to Assisted living Facility in next 1-2 weeks. Continue to adjust insulin and coumadin and monitor for changes in BP and CHF with changes in medications from [facility] staff officer visit. Pt has appointments scheduled later this month with Dr Anderson and with her [facility] staff officer.
--- NOTE | 2016-11-24 13:11 | PCM.SN ---
- Free Text/Narrative Note: Electrolyte imbalance: Labs today noted hyponatremia and hyperkalemia with normal magnesium. Continue same dose of Magnesium, decrease potassium to 10 meq bid, and IV Nacl at 75 cc/ hr with electrolytes in am with PT/INR. Notified YOLANDA Camarena of changes for pt. Isaac, pharmacist was consulted about Coumadin dose and PT/INR. continue with Coumadin 1.5 mg PO daily. With changes of medications from machine sneller, will recheck PT/INR tomorrow. Isaac mentioned pt having dark loose stools. Last hgb noted was normal. Will continue to monitor this for now.
[2016-11-24] MEDS: Insulin Isophane NPH, Human 100 Units/ML 10 ML Vial SUBCUT SCH ×2 (14:36→17:27)
[2016-11-24] MEDS: Lisinopril 10 MG Tab PO SCH (14:44)
[2016-11-24] MEDS: Metoprolol Succinate 50 MG Tab.ER PO SCH (14:46)
[2016-11-24] MEDS: Sodium Chloride 0.9% 1,000 ML IV SCH (14:49)
[2016-11-24] MEDS: atorvaSTATin 40 MG Tab PO SCH (19:55)
[2016-11-24] MEDS: Potassium Chloride 10 MEQ Tab.ER PO SCH (19:55)
[2016-11-25] MEDS: Sodium Chloride 0.9% 1,000 ML IV SCH ×2 (03:04→18:09)
[2016-11-25] MEDS: Pantoprazole 40 MG Tab.CR PO SCH ×2 (06:41→16:49)
[2016-11-25] MEDS: Lisinopril 10 MG Tab PO SCH (07:35)
[2016-11-25] MEDS: Aspirin 81 MG Tab.Chew PO SCH (07:35)
[2016-11-25] MEDS: Insulin Aspart 100 Units/ML 3 ML Pen SUBCUT SCH ×4 (07:36→20:35)
[2016-11-25] MEDS: Clopidogrel 75 MG Tab PO SCH (07:36)
[2016-11-25] MEDS: Cyanocobalamin (Vitamin B12) 1,000 MCG Tab PO SCH (07:36)
[2016-11-25] MEDS: Potassium Chloride 10 MEQ Tab.ER PO SCH (07:36)
[2016-11-25] MEDS: Ferrous Sulfate 325 MG Tab PO SCH ×2 (07:36→16:49)
[2016-11-25] MEDS: Magnesium Oxide 400 MG Tab PO SCH (07:36)
[2016-11-25] MEDS: Metoprolol Succinate 50 MG Tab.ER PO SCH (07:37)
[2016-11-25] MEDS: Insulin Isophane NPH, Human 100 Units/ML 10 ML Vial SUBCUT SCH ×2 (08:56→17:42)
[2016-11-25] MEDS: traMADol 50 MG Tab PO PRN (08:58)
[2016-11-25] MEDS: Loperamide 2 MG Cap PO PRN (08:58)
--- NOTE | 2016-11-25 09:48 | PCM.SN ---
- Free Text/Narrative Note: DVT, PE history INR 2.7 today, Decrease to Coumadin 1 mg PO. May need to change dose if antibiotic is ordered. Recommend INR more towards 2.0 than 3.0. Hyponatremia: Sodium 130 today and potassium 4.6. continue with IV Nacl and continue with decreased dose potassium PO 10 meq bid. blood to urethra: Staff notified electronic equipment set up operator provider of change in status of pt last evening and Dr Alvarez assessed pt. Orders pending today for c-diff and CT abdomen and pelvis. Pt has been ambulatory with assist in room and little appetite today. Continue to monitor for changes with urination and stools. No temperature noted and CBC within normal. Discussed pt care with Dr Alvarez. States he will follow results of CT today and c-diff.
--- NOTE | 2016-11-25 13:24 | PCM.SN ---
- Free Text/Narrative Note: Last evening I was called in from hospital for vginal bleeding. I advised staff to give patient one dose of provera 10mg . I did come in last night and do pelvic exam with Mrs. Cordon RN in the room. The vaginal vault appears normal. there is no blood pooling in the posterior vagina. But there waa some bleeding at the urethral orifice with clots. On clean the clots ther was some serous discharge from the urethral orifice. Her CBC and her PT, PTT were normal. Her INR was 2.4 from coumadin. But she did not have active bleeding or blood loss. Hence I did order CT abdomen and pelvis to be done in the [facility]. Also as she has been in tertiary hospital for more than 3 days and has chronic diarrhea, got C diff done which is negative. Today 11/25/16, Ms Cormier has seen the patient. Also She did want me to followup on the Ct report. 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 Apparently for further workup, cannot do CT with IV contrast as pt has anaphylaxis to IV dye. Hence I did discuss the report with patient and her daughter. Pt's daughter does want further workup on the mas. Hence I have recommended COMPUTER NETWORK [employer] SYSTEMS ENGINEER evaluation. Pt and daughter agree to it. Will call Emmanuel Lawrence on sunday and set up the appointment. Meanwhile for her gassy feeling in the abdomen have started her on semithacone tablets to absorb colonic gas.
[2016-11-25] MEDS: atorvaSTATin 40 MG Tab PO SCH (20:34)
[2016-11-26] MEDS: Pantoprazole 40 MG Tab.CR PO SCH ×2 (06:41→16:55)
[2016-11-26] MEDS: Sodium Chloride 0.9% 1,000 ML IV SCH ×2 (06:49→20:39)
[2016-11-26] MEDS: Aspirin 81 MG Tab.Chew PO SCH (08:26)
[2016-11-26] MEDS: Cyanocobalamin (Vitamin B12) 1,000 MCG Tab PO SCH (08:27)
[2016-11-26] MEDS: Simethicone 80 MG Tab.Chew PO SCH ×3 (08:27→20:16)
[2016-11-26] MEDS: Insulin Aspart 100 Units/ML 3 ML Pen SUBCUT SCH ×3 (08:27→16:56)
[2016-11-26] MEDS: Potassium Chloride 10 MEQ Tab.ER PO SCH ×3 (08:27→20:17)
[2016-11-26] MEDS: Clopidogrel 75 MG Tab PO SCH (08:27)
[2016-11-26] MEDS: Magnesium Oxide 400 MG Tab PO SCH (08:27)
[2016-11-26] MEDS: Ferrous Sulfate 325 MG Tab PO SCH ×2 (08:27→16:55)
[2016-11-26] MEDS: Metoprolol Succinate 50 MG Tab.ER PO SCH (08:31)
[2016-11-26] MEDS: Lisinopril 10 MG Tab PO SCH (08:33)
[2016-11-26] MEDS: Insulin Isophane NPH, Human 100 Units/ML 10 ML Vial SUBCUT SCH ×2 (08:40→18:02)
[2016-11-26] MEDS: Loperamide 2 MG Cap PO PRN (10:14)
[2016-11-26] MEDS: traMADol 50 MG Tab PO PRN (10:16)
[2016-11-26] MEDS ORDERED: Ciprofloxacin 500 MG Tab PO SCH (16:00)
[2016-11-26] MEDS: Sulfamethoxazole/Trimethoprim 800-160 MG Tab PO SCH ×2 (16:55→20:15)
[2016-11-26] MEDS: atorvaSTATin 40 MG Tab PO SCH (20:14)
[2016-11-27] MEDS: Pantoprazole 40 MG Tab.CR PO SCH ×2 (06:39→16:03)
[2016-11-27] MEDS: Insulin Aspart 100 Units/ML 3 ML Pen SUBCUT SCH ×5 (06:39→19:37)
[2016-11-27] MEDS: Ferrous Sulfate 325 MG Tab PO SCH ×2 (08:04→17:18)
[2016-11-27] MEDS: Aspirin 81 MG Tab.Chew PO SCH (08:04)
[2016-11-27] MEDS: Potassium Chloride 10 MEQ Tab.ER PO SCH ×2 (08:05→19:30)
[2016-11-27] MEDS: Insulin Isophane NPH, Human 100 Units/ML 10 ML Vial SUBCUT SCH ×2 (08:05→17:23)
[2016-11-27] MEDS: Magnesium Oxide 400 MG Tab PO SCH (08:06)
[2016-11-27] MEDS: Clopidogrel 75 MG Tab PO SCH (08:07)
[2016-11-27] MEDS: Lisinopril 10 MG Tab PO SCH (08:08)
[2016-11-27] MEDS: Sulfamethoxazole/Trimethoprim 800-160 MG Tab PO SCH ×3 (08:09→21:36)
[2016-11-27] MEDS: Simethicone 80 MG Tab.Chew PO SCH ×2 (08:09→19:31)
[2016-11-27] MEDS: Cyanocobalamin (Vitamin B12) 1,000 MCG Tab PO SCH (08:10)
[2016-11-27] MEDS: Metoprolol Succinate 50 MG Tab.ER PO SCH (08:10)
--- NOTE | 2016-11-27 09:47 | CT ---
DATE OF SERVICE:11/25/2016 CLINICAL DATA: urethral bleeding UNENHANCED ABDOMEN AND PELVIC CT: Multislice acquisition through the abdomen and pelvis without IV or oral contrast was performed. No priors. Breathing motion artifacts significantly degrades image quality. There are mild atelectatic changes in both lung bases. The lung bases are otherwise clear. The unenhanced liver appears normal. The patient is status post cholecystectomy. The spleen appears normal. The pancreas appears normal. There is a 2.0 cm left adrenal mass. There is a 1.8 cm right adrenal mass. The adrenals are otherwise unremarkable. The right and left kidneys appear normal. No nephrocalcinosis or nephrolithiasis. No hydronephrosis or hydroureter. The bladder is abnormal. It is partially fluid filled. There is hyperdense material within the bladder. Considering the patient's clinical history, this most likely represents hematoma or thrombus. I cannot completely exclude a bladder mass. Cystoscopy is recommended. The appendix is not identified. No evidence of appendicitis. The patient is status post hysterectomy. There are multiple fluid filled loops of small bowel throughout the mid and lower abdomen and pelvis. They are not distended. They do contain scattered air fluid levels. There is a moderate amount of gas noted within the ascending and transverse colon. There is a short segment of the distal transverse colon with apparent focal mural thickening and luminal narrowing. Colonoscopy is recommended to exclude an annular constricting lesion. There is moderately severe diverticulosis of the sigmoid colon without evidence of diverticulitis. There is a moderate amount of gas and stool noted within the rectum. No free air. No free fluid. No adenopathy. No aortic aneurysm. IMPRESSION: 1) Hyperdense material within the bladder. Considering the patient's clinical history, this most likely represents hematoma or thrombus. I cannot however exclude a mass, and cystoscopy is recommended. 2) Multiple fluid filled loops of small bowel containing air fluid levels. They are not distended. Enteritis should be considered. Follow-up imaging is recommended if clinically indicated. 3) Short segment of the distal transverse colon with focal mural thickening and luminal narrowing. Colonoscopy is recommended to exclude a annular constricting lesion. 4) Other findings as discussed above. [id number] [facility]
[2016-11-27] MEDS: Sodium Chloride 0.9% 1,000 ML IV SCH (10:00)
[2016-11-27] MEDS: Ondansetron 4 MG Tab.DIS PO PRN (17:16)
[2016-11-27] MEDS: Calcium Carbonate/Vitamin D3 1500 MG-400 Units Tab PO SCH (17:17)
[2016-11-27] MEDS: atorvaSTATin 40 MG Tab PO SCH (19:30)
[2016-11-28] MEDS: Sodium Chloride 0.9% 1,000 ML IV SCH (01:38)
[2016-11-28] MEDS: Pantoprazole 40 MG Tab.CR PO SCH ×2 (06:40→16:32)
[2016-11-28] MEDS: Ferrous Sulfate 325 MG Tab PO SCH ×2 (08:00→16:32)
[2016-11-28] MEDS: Clopidogrel 75 MG Tab PO SCH (08:00)
[2016-11-28] MEDS: Aspirin 81 MG Tab.Chew PO SCH (08:00)
[2016-11-28] MEDS: Magnesium Oxide 400 MG Tab PO SCH (08:00)
[2016-11-28] MEDS: Lisinopril 10 MG Tab PO SCH (08:01)
[2016-11-28] MEDS: Potassium Chloride 10 MEQ Tab.ER PO SCH ×2 (08:01→20:02)
[2016-11-28] MEDS: Metoprolol Succinate 50 MG Tab.ER PO SCH (08:01)
[2016-11-28] MEDS: Cyanocobalamin (Vitamin B12) 1,000 MCG Tab PO SCH (08:01)
[2016-11-28] MEDS: Simethicone 80 MG Tab.Chew PO SCH ×2 (08:01→20:02)
[2016-11-28] MEDS: Sulfamethoxazole/Trimethoprim 800-160 MG Tab PO SCH ×2 (08:02→20:04)
[2016-11-28] MEDS: traMADol 50 MG Tab PO PRN (08:05)
--- NOTE | 2016-11-28 08:05 | PCM.PN ---
- General Info Date of Service: 11/27/16 Admission Dx/Problem (Free Text): Admission Diagnosis/Problem Admission Diagnosis/Problem Atrial fibrillation, post PE and DVT. Subjective Update: Pt states she had a rough weekend. States weakness and visited with children about financial affairs and of her . States she is finally realizing that her is and this saddens her. Remembers all the good times and the hard work she has done over the years and the family she raised with her . Offers no complaints, but little appetite. No pain or tenderness to abdomen. Functional Status: Reports: Pain Controlled - Review of Systems General: Reports: Weakness, Fatigue, Malaise. Denies: Appetite HEENT: Reports: No Symptoms Pulmonary: Reports: No Symptoms Cardiovascular: Reports: No Symptoms Gastrointestinal: Reports: Decreased Appetite Genitourinary: Reports: Incontinence Musculoskeletal: Reports: No Symptoms Skin: Reports: No Symptoms Neurological: Reports: Difficulty Walking, Weakness. Denies: Trouble Speaking, Change in Speech Psychiatric: Reports: Depression - Patient Data Vitals - Most Recent: Last Vital Signs Temp 97.2 F 11/27/16 19:45 Pulse 99 11/27/16 19:45 Resp 20 11/27/16 19:45 BP 110/75 11/27/16 19:45 Pulse Ox 97 11/27/16 19:45 Weight - Most Recent: 193 lb 8 oz I&O - Last 24 Hours: Intake & Output 11/27/16 11/28/16 11/28/16 22:59 06:59 14:59 Intake Total 900 Balance 900 Lab Results Last 24 Hours: Laboratory Results - last 24 hr 11/27/16 11/27/16 11/27/16 Range/Units 06:57 07:30 08:10 Whole Blood INR 3.2 (1.0-3.5) Sodium 133 L (136-145) mmol/L Potassium 4.9 (3.5-5.1) mmol/L Chloride 103 (98-107) mmol/L Carbon Dioxide 23.2 (21.0-32.0) mmol/L Anion Gap 11.7 (5.0-15.0) mmol/L BUN 19 D (8-26) mg/dL Creatinine 1.01 D (0.55-1.02) mg/dL Est Cr Clr Drug Dosing 41.04 mL/min Estimated GFR (MDRD) 52 L (>60) MLS/MIN BUN/Creatinine Ratio 18.8 (6-25) Glucose 89 D (74-100) mg/dL POC Glucose 78 (74-110) mg/dL Calcium 8.2 L (8.5-10.1) mg/dL Total Bilirubin 1.1 H D (0.0-1.0) mg/dL AST 36 (15-37) U/L ALT 45 (12-78) U/L Alkaline Phosphatase 100 (46-116) U/L Total Protein 5.7 L (6.4-8.2) g/dL Albumin 2.4 L (3.4-5.0) g/dL Globulin 3.3 (2.2-4.2) g/dL Albumin/Globulin Ratio 0.7 L (0.8-2.0) 11/27/16 11/27/16 11/27/16 Range/Units 10:46 15:06 18:37 Whole Blood INR (1.0-3.5) Sodium (136-145) mmol/L Potassium (3.5-5.1) mmol/L Chloride (98-107) mmol/L Carbon Dioxide (21.0-32.0) mmol/L Anion Gap (5.0-15.0) mmol/L BUN (8-26) mg/dL Creatinine (0.55-1.02) mg/dL Est Cr Clr Drug Dosing mL/min Estimated GFR (MDRD) (>60) MLS/MIN BUN/Creatinine Ratio (6-25) Glucose (74-100) mg/dL POC Glucose 120 H 129 H 117 H (74-110) mg/dL Calcium (8.5-10.1) mg/dL Total Bilirubin (0.0-1.0) mg/dL AST (15-37) U/L ALT (12-78) U/L Alkaline Phosphatase (46-116) U/L Total Protein (6.4-8.2) g/dL Albumin (3.4-5.0) g/dL Globulin (2.2-4.2) g/dL Albumin/Globulin Ratio (0.8-2.0) 11/28/16 Range/Units 06:26 Whole Blood INR (1.0-3.5) Sodium (136-145) mmol/L Potassium (3.5-5.1) mmol/L Chloride (98-107) mmol/L Carbon Dioxide (21.0-32.0) mmol/L Anion Gap (5.0-15.0) mmol/L BUN (8-26) mg/dL Creatinine (0.55-1.02) mg/dL Est Cr Clr Drug Dosing mL/min Estimated GFR (MDRD) (>60) MLS/MIN BUN/Creatinine Ratio (6-25) Glucose (74-100) mg/dL POC Glucose 69 L (74-110) mg/dL Calcium (8.5-10.1) mg/dL Total Bilirubin (0.0-1.0) mg/dL AST (15-37) U/L ALT (12-78) U/L Alkaline Phosphatase (46-116) U/L Total Protein (6.4-8.2) g/dL Albumin (3.4-5.0) g/dL Globulin (2.2-4.2) g/dL Albumin/Globulin Ratio (0.8-2.0) Derrick Results Last 24 Hours: Microbiology 11/26/16 15:00 Urine Culture - Preliminary Urine, Quick Cath (In-Out) Gram Negative Rods Gram Negative Rods#2 Med Orders - Current: Current Medications Aspirin (Aspirin) 81 mg PO DAILY [facility] Last Admin: 11/27/16 08:04 Dose: 81 mg Atorvastatin Calcium (Lipitor) 40 mg PO BEDTIME [facility] Last Admin: 11/27/16 19:30 Dose: 40 mg Calcium Carbonate (Caltrate 600+D 1500 Mg-400 Units) 1 tab PO DAILY@1800 [facility] Last Admin: 11/27/16 17:17 Dose: 1 tab Clopidogrel Bisulfate (Plavix) 75 mg PO DAILY [facility] Last Admin: 11/27/16 08:07 Dose: 75 mg Cyanocobalamin (Vitamin B12) 1,000 mcg PO DAILY [facility] Last Admin: 11/27/16 08:10 Dose: 1,000 mcg Ferrous Sulfate (Ferrous Sulfate) 325 mg PO BID@0800,1700 [facility] Last Admin: 11/27/16 17:18 Dose: 325 mg Sodium Chloride (Normal Saline) 1,000 mls @ 75 mls/hr IV ASDIRECTED [facility] Last Admin: 11/28/16 01:38 Dose: 75 mls/hr Insulin Aspart (Novolog) 0 unit SUBCUT QID [facility] PRN Reason: Protocol Last Admin: 11/27/16 19:37 Dose: Not Given Insulin Human NPH (Humulin N) 7 unit SUBCUT DAILY@1700 [facility] Last Admin: 11/27/16 17:23 Dose: 7 unit Insulin Human NPH (Humulin N) 9 unit SUBCUT DAILY [facility] Last Admin: 11/27/16 08:05 Dose: Not Given Lisinopril (Prinivil) 10 mg PO DAILY [facility] Last Admin: 11/27/16 08:08 Dose: 10 mg Loperamide HCl (Imodium) 2 mg PO QID PRN PRN Reason: DIARRHEA Last Admin: 11/26/16 10:14 Dose: 2 mg Magnesium Oxide (Magnesium Oxide) 200 mg PO DAILY [facility] Last Admin: 11/27/16 08:06 Dose: 200 mg Metoprolol Succinate (Toprol Xl) 50 mg PO DAILY [facility] Last Admin: 11/27/16 08:10 Dose: 50 mg Nitroglycerin (Nitrostat) 0.4 mg SL ASDIRECTED PRN PRN Reason: Chest Pain Ondansetron HCl (Zofran Odt) 4 mg PO Q8H PRN PRN Reason: Nausea/Vomiting Last Admin: 11/27/16 17:16 Dose: 4 mg Pantoprazole Sodium (Protonix) 40 mg PO 0700,1600 [facility] Last Admin: 11/28/16 06:40 Dose: 40 mg Potassium Chloride (Klor-Con 10) 10 meq PO BID [facility] Last Admin: 11/27/16 19:30 Dose: 10 meq Simethicone (Simethicone) 80 mg PO BID [facility] Last Admin: 11/27/16 19:31 Dose: 80 mg Tramadol HCl (Ultram) 50 mg PO Q6H PRN PRN Reason: moderate pain Last Admin: 11/26/16 10:16 Dose: 50 mg Trimethoprim/Sulfamethoxazole (Septra Ds) 0.5 tab PO BID [facility] Stop: 12/02/16 20:01 Last Admin: 11/27/16 21:36 Dose: Not Given Tuberculin PPD (Aplisol) 5 unit IDERM ONETIME [facility] Warfarin Sodium (Coumadin) 0.5 mg PO DAILY@1800 [facility] Last Admin: 11/27/16 17:18 Dose: 0.5 mg Discontinued Medications Calcium Carbonate/Glycine (Tums) 1,000 mg PO ONETIME ONE Stop: 11/10/16 17:41 Last Admin: 11/10/16 18:07 Dose: 1,000 mg Ciprofloxacin (Ciprofloxacin Hcl) 500 mg PO BID [facility] Stop: 12/02/16 20:01 Last Admin: 11/26/16 17:00 Dose: Not Given Ferrous Sulfate (Ferrous Sulfate) 325 mg PO BID [facility] Last Admin: 11/10/16 21:03 Dose: Not Given Hydrochlorothiazide (Hydrochlorothiazide) 12.5 mg PO DAILY [facility] Last Admin: 11/23/16 07:18 Dose: 12.5 mg Sodium Chloride (Normal Saline) 1,000 mls @ 125 mls/hr IV ASDIRECTED [facility] Last Infusion: 11/22/16 00:30 Dose: Infused Insulin Aspart (Novolog) 5 unit SUBCUT BID@0800,1700 [facility] Last Admin: 11/11/16 17:41 Dose: Not Given Insulin Aspart (Novolog) 5 unit SUBCUT DAILY [facility] Last Admin: 11/12/16 10:58 Dose: Not Given Insulin Human NPH (Humulin N) 8 unit SUBCUT BIDAC [facility] Last Admin: 11/09/16 17:26 Dose: 10 units Insulin Human NPH (Humulin N) 9 unit SUBCUT BID@0800,1700 [facility] Last Admin: 11/24/16 14:36 Dose: Not Given Isosorbide Mononitrate (Imdur) 30 mg PO DAILY [facility] Last Admin: 11/23/16 06:00 Dose: 30 mg Lisinopril (Prinivil) 20 mg PO DAILY [facility] Magnesium Oxide (Magnesium Oxide) 400 mg PO DAILY [facility] Last Admin: 11/21/16 08:48 Dose: 200 mg Medroxyprogesterone Acetate (Provera) 10 mg PO DAILY [facility] Last Admin: 11/24/16 18:46 Dose: 10 mg Metoprolol Succinate (Toprol Xl) 100 mg PO DAILY [facility] Last Admin: 11/13/16 08:40 Dose: 100 mg Metoprolol Succinate (Toprol Xl) 50 mg PO DAILY [facility] Pantoprazole Sodium (Protonix) 40 mg PO BIDAC [facility] Last Admin: 11/17/16 20:49 Dose: 40 mg Potassium Chloride (Klor-Con M20) 20 meq PO BID [facility] Last Admin: 11/10/16 21:03 Dose: Not Given Potassium Chloride (Klor-Con M20) 20 meq PO BID@0800,1700 [facility] Last Admin: 11/24/16 07:41 Dose: 20 meq Sodium Chloride (Saline Flush) 10 ml FLUSH BID [facility] Last Admin: 11/24/16 15:32 Dose: Not Given Tramadol HCl (Ultram) 50 mg PO Q6H PRN PRN Reason: MODERATE PAIN Tuberculin PPD (Aplisol) 5 unit IDERM ONETIME ONE Stop: 11/08/16 13:12 Last Admin: 11/09/16 16:11 Dose: Not Given Tuberculin PPD (Aplisol) 5 unit IDERM ONETIME ONE Stop: 11/09/16 16:14 Last Admin: 11/09/16 16:14 Dose: 5 unit Warfarin Sodium (Coumadin) 2.5 mg PO DAILY@1800 [facility] Last Admin: 11/12/16 17:58 Dose: 2.5 mg Warfarin Sodium (Coumadin) 2 mg PO DAILY@1800 [facility] Last Admin: 11/13/16 17:19 Dose: 2 mg Warfarin Sodium (Coumadin) 1 mg PO DAILY@1800 [facility] Last Admin: 11/20/16 17:50 Dose: 1 mg Warfarin Sodium (Coumadin) 1.5 mg PO DAILY@1800 [facility] Last Admin: 11/24/16 17:28 Dose: 1.5 mg Warfarin Sodium (Coumadin) 1 mg PO DAILY@1800 [facility] Last Admin: 11/26/16 18:34 Dose: 1 mg - Exam General: Alert, Oriented Neck: Supple Lungs: Clear to Auscultation, Normal Respiratory Effort Cardiovascular: Regular Rate, Regular Rhythm GI/Abdominal Exam: Soft, Non-Tender Extremities: Non-Tender, No Pedal Edema, Normal Capillary Refill Skin: Warm, Dry, Intact Neurological: No New Focal Deficit Psy/Mental Status: Alert, Normal Affect - Problem List & Annotations (1) Atrial fibrillation SNOMED Code(s): 74939745 Code(s): I48.91 - UNSPECIFIED ATRIAL FIBRILLATION Status: Acute Priority : Medium Current Visit: No Qualifiers: Atrial fibrillation type: chronic Qualified Code(s): I48.2 - Chronic atrial fibrillation (2) Diabetes mellitus SNOMED Code(s): 76295990 Code(s): E11.9 - TYPE 2 DIABETES MELLITUS WITHOUT COMPLICATIONS Status: Chronic Priority: High Current Visit: No Qualifiers: Diabetes mellitus type: type 2 Diabetes mellitus terminologist insulin use: with mcfp use (3) Diarrhea SNOMED Code(s): 59651203 Code(s): R19.7 - DIARRHEA, UNSPECIFIED Status: Chronic Priority: Low Current Visit: No (4) Weakness generalized SNOMED Code(s): 83153212 Code(s): R53.1 - WEAKNESS Status: Acute Priority: High Current Visit: Yes (5) Grieving SNOMED Code(s): 241737673, 746987622 Code(s): F43.20 - ADJUSTMENT DISORDER, UNSPECIFIED Status: Acute Priority : Medium Current Visit: Yes Annotation/Comment:: Pt grieving loss of her . (6) Coagulation problem SNOMED Code(s): 23932550 Code(s): D68.9 - COAGULATION DEFECT, UNSPECIFIED Status: Acute Priority: High Current Visit: Yes Annotation/Comment:: 11-27-2016, status post PE and DVT with continuing Warfarin - Problem List Review Problem List Initiated/Reviewed/Updated: Yes - My Orders Last 24 Hours: My Active Orders 11/27/16 18:00 Calcium Carbonate/Vitamin D3 [Caltrate 600+D 1500 MG-400 Units] 1 tab PO DAILY @1800 Warfarin [Coumadin] 0.5 mg PO DAILY@1800 11/29/16 08:00 BASIC METABOLIC PANEL,BMP [CHEM] Routine CBC WITH AUTO DIFF [HEME] Routine INR,PT,PROTHROMBIN TIME [COAG] Routine - Assessment Assessment:: Weakness to upper and lower extremities, continue to work with PT/OT for strengthening to increase independence with positioning in bed and ambulation. Hx PE and atrial fibrillation: Continue with adjustment of Warfarin dose. PT/INR monitored every 48-72 hour with adjustment of medication. Imdur and HCTZ was d'cd after management specialist visit. Nausea with vomitting: Intermittent nausea with vomiting and controlled with use of Zofran prn. Diabetes type 2: Monitor blood sugars before meals and at hs. NPH insulin bid and Novolog per sliding scale infrequently. Continue with consistent carb diet. Insulin has been held for a few doses with low blood sugars and not eating well. Grieving and depressed mood: Pt to continue to express grief and review life events and accomplishments with family and staff. Mass to pelvic area: CT was completed 11-25-16, refer to Dr Alvarez notes. Will refer pt to urologist for consult of blood to urethra and mass/clot noted per CT. Staff continue to assist with toileting and monitor for any bleeding to urine. Labs: BMP, CBC, and PT/INR ordered for 11-29-16. C-diff ordered and results neg. UTI: 11-26-16 U/A completed with culture and started pt on Bactrim for 7 days. - Plan Plan:: 11-27-2016 Atrial Fibrillation: DVT precautions. BRUNILDA hose to lower extremities Full weight bearing. Medications as ordered. Changed Coumadin 0.5 mg PO daily. Diabetes Type 2: Monitor blood sugars ac and hs. Insulin as ordered. Insulin being held Heart healthy diet and consistent carb diet. Weakness: PT/OT continue with strengthening. Diarrhea: Assist pt to bathroom. Monitor skin for breakdown and apply barrier cream as needed. Medications as ordered for loose stool prn. Weakness to upper and lower extremities, continue to work with PT/OT for strengthening to increase independence with positioning in bed and ambulation. Hx PE and atrial fibrillation: Continue with adjustment of Warfarin dose. PT/INR monitored every 48-72 hour with adjustment of medication. Imdur and HCT d'cd. Nausea with vomitting: Intermittent nausea with vomiting and controlled with use of Zofran prn. IV fluids Nacl at 75 cc/hr. Diabetes type 2: Monitor blood sugars before meals and at hs. NPH insulin bid and Novolog per sliding scale infrequently. Insulin is being held with low blood sugars and little appetite. Continue with consistent carb diet. UTI: Bactrim DS 1 tab bid X 14 days. Culture pending. Mass/clot to bladder area: Pt had CT 11-25-16 and mass/blood clot noted to bladder area. Will refer to urologist, Emmanuel Lawrence. Grieving: Pt states she is finally realizing her is gone and visiting with family about land and financial concers. Plan to discharge in 1-2 weeks to [facility] in [place] with continued monitoring of Diabetes, atrial fibrillation, medications, PT/OT as needed and PT /INR with warfarin adjustments.
[2016-11-28] MEDS: Insulin Aspart 100 Units/ML 3 ML Pen SUBCUT SCH ×4 (08:06→20:03)
[2016-11-28] MEDS: Insulin Isophane NPH, Human 100 Units/ML 10 ML Vial SUBCUT SCH ×2 (08:14→17:13)
[2016-11-28] MEDS: Calcium Carbonate/Vitamin D3 1500 MG-400 Units Tab PO SCH (18:18)
[2016-11-28] MEDS: atorvaSTATin 40 MG Tab PO SCH (20:02)
[2016-11-29] MEDS: Pantoprazole 40 MG Tab.CR PO SCH ×2 (07:58→16:50)
[2016-11-29] MEDS: Cyanocobalamin (Vitamin B12) 1,000 MCG Tab PO SCH (08:06)
[2016-11-29] MEDS: Potassium Chloride 10 MEQ Tab.ER PO SCH (08:06)
[2016-11-29] MEDS: Simethicone 80 MG Tab.Chew PO SCH ×2 (08:06→20:07)
[2016-11-29] MEDS: Ferrous Sulfate 325 MG Tab PO SCH ×2 (08:06→16:50)
[2016-11-29] MEDS: Clopidogrel 75 MG Tab PO SCH (08:06)
[2016-11-29] MEDS: Aspirin 81 MG Tab.Chew PO SCH (08:06)
[2016-11-29] MEDS: Magnesium Oxide 400 MG Tab PO SCH (08:06)
[2016-11-29] MEDS: traMADol 50 MG Tab PO PRN (08:07)
[2016-11-29] MEDS: Sulfamethoxazole/Trimethoprim 800-160 MG Tab PO SCH ×2 (08:07→20:08)
[2016-11-29] MEDS: Insulin Aspart 100 Units/ML 3 ML Pen SUBCUT SCH ×4 (08:08→20:08)
[2016-11-29] MEDS: Lisinopril 10 MG Tab PO SCH (11:51)
[2016-11-29] MEDS: Insulin Isophane NPH, Human 100 Units/ML 10 ML Vial SUBCUT SCH ×2 (11:51→18:28)
[2016-11-29] MEDS: Metoprolol Succinate 50 MG Tab.ER PO SCH (11:52)
--- NOTE | 2016-11-29 18:22 | PCM.SN ---
- Free Text/Narrative Note: Review of lab results for today with elevated potassium 5.4 and INR 3.6. Pt continues with Bactrim for UTI. Willl hold Warfarin tonight and start Warfarin 0.5 mg PO daily 11-30-16 and repeat PT/INR Sunday12-02-16. Will hold potassium tonight and tomorrow and start potassium 10 meq daily beginning . Recheck BMP on Sunday12-01-16. With interaction of medications with use of Bactrim, careful monitoring of electrolytes and PT/INR will be needed.
[2016-11-29] MEDS: Calcium Carbonate/Vitamin D3 1500 MG-400 Units Tab PO SCH (18:29)
[2016-11-29] MEDS: atorvaSTATin 40 MG Tab PO SCH (20:08)
[2016-11-29] MEDS: Sodium Chloride 0.9% 1,000 ML IV SCH (20:10)
[2016-11-30] MEDS: Pantoprazole 40 MG Tab.CR PO SCH ×2 (07:00→19:36)
[2016-11-30] MEDS: Simethicone 80 MG Tab.Chew PO SCH ×2 (08:30→20:00)
[2016-11-30] MEDS: Magnesium Oxide 400 MG Tab PO SCH (08:31)
[2016-11-30] MEDS: Clopidogrel 75 MG Tab PO SCH (08:31)
[2016-11-30] MEDS: Cyanocobalamin (Vitamin B12) 1,000 MCG Tab PO SCH (08:32)
[2016-11-30] MEDS: Aspirin 81 MG Tab.Chew PO SCH (08:32)
[2016-11-30] MEDS: Ferrous Sulfate 325 MG Tab PO SCH ×2 (08:32→19:30)
[2016-11-30] MEDS: Sulfamethoxazole/Trimethoprim 800-160 MG Tab PO SCH ×2 (08:33→20:00)
[2016-11-30] MEDS: Insulin Isophane NPH, Human 100 Units/ML 10 ML Vial SUBCUT SCH ×2 (08:33→19:30)
[2016-11-30] MEDS: Insulin Aspart 100 Units/ML 3 ML Pen SUBCUT SCH ×4 (08:35→22:29)
[2016-11-30] MEDS: Lisinopril 10 MG Tab PO SCH (08:55)
[2016-11-30] MEDS: Metoprolol Succinate 50 MG Tab.ER PO SCH (08:55)
[2016-11-30] MEDS: Sodium Chloride 0.9% 1,000 ML IV SCH ×2 (08:56→22:26)
--- NOTE | 2016-11-30 12:33 | PCM.SN ---
- Free Text/Narrative Note: Visit with family today. Son and daughter wish that pt is comfortable and stop any aggressive treatments and decline any immediate transfers to higher level of care for pt. Reviewed pt status with family, noting pt having less appetite , decline in vital signs and periods of confusion. Family reviewed advanced directive information with pt and DNR form signed. Pt reported if she is stronger in 1 week, she may change her mind, but at this time she is declining any transfer of care to other facility. CT report reviewed with Dr Weaver, urologist, Howard Benitez and recommends mcnair catheter placement with intermittent irrigation to check for blood clots to bladder. States if no blood clots with irrigation, he would recommend urologist consult Sun or next week for cystoscopy. Will keep Dr Weaver updated on status of pt with intermittent bladder irrigation.
[2016-11-30] MEDS: Calcium Carbonate/Vitamin D3 1500 MG-400 Units Tab PO SCH (19:36)
[2016-11-30] MEDS ORDERED: Ondansetron 4 MG/2 ML SDV IVPUSH PRN (19:37)
[2016-11-30] MEDS ORDERED: Ondansetron 4 MG/2 ML SDV ONE (19:46)
[2016-11-30] MEDS: atorvaSTATin 40 MG Tab PO SCH (20:00)
[2016-12-01] MEDS: Pantoprazole 40 MG Tab.CR PO SCH ×2 (06:12→19:13)
[2016-12-01] MEDS: Insulin Isophane NPH, Human 100 Units/ML 10 ML Vial SUBCUT SCH ×2 (08:25→17:26)
[2016-12-01] MEDS: Cyanocobalamin (Vitamin B12) 1,000 MCG Tab PO SCH (08:27)
[2016-12-01] MEDS: Sulfamethoxazole/Trimethoprim 800-160 MG Tab PO SCH ×2 (08:28→21:07)
[2016-12-01] MEDS: Potassium Chloride 10 MEQ Tab.ER PO SCH (08:29)
[2016-12-01] MEDS: Aspirin 81 MG Tab.Chew PO SCH (08:29)
[2016-12-01] MEDS: Magnesium Oxide 400 MG Tab PO SCH (08:29)
[2016-12-01] MEDS: Simethicone 80 MG Tab.Chew PO SCH ×2 (08:29→21:07)
[2016-12-01] MEDS: Ferrous Sulfate 325 MG Tab PO SCH ×2 (08:29→17:15)
[2016-12-01] MEDS: Clopidogrel 75 MG Tab PO SCH (08:30)
[2016-12-01] MEDS: Insulin Aspart 100 Units/ML 3 ML Pen SUBCUT SCH ×4 (08:34→21:08)
[2016-12-01] MEDS: Sodium Chloride 0.9% 1,000 ML IV SCH (10:32)
[2016-12-01] MEDS ORDERED: Metoprolol Succinate 25 MG Tab.ER PO ONE (11:15)
[2016-12-01] MEDS ORDERED: Lisinopril 5 MG Tab PO ONE (11:15)
[2016-12-01] MEDS: Calcium Carbonate/Vitamin D3 1500 MG-400 Units Tab PO SCH (17:15)
[2016-12-01] MEDS ORDERED: diphenhydrAMINE 50 MG Cap PO ONE (17:53)
[2016-12-01] MEDS: atorvaSTATin 40 MG Tab PO SCH (21:07)
[2016-12-02] MEDS: Pantoprazole 40 MG Tab.CR PO SCH ×2 (06:46→16:30)
[2016-12-02] MEDS: Potassium Chloride 10 MEQ Tab.ER PO SCH (08:28)
[2016-12-02] MEDS: Aspirin 81 MG Tab.Chew PO SCH (08:28)
[2016-12-02] MEDS: Simethicone 80 MG Tab.Chew PO SCH ×2 (08:29→19:43)
[2016-12-02] MEDS: Magnesium Oxide 400 MG Tab PO SCH (08:29)
[2016-12-02] MEDS: Sulfamethoxazole/Trimethoprim 800-160 MG Tab PO SCH ×2 (08:29→19:42)
[2016-12-02] MEDS: Clopidogrel 75 MG Tab PO SCH (08:29)
[2016-12-02] MEDS: Ferrous Sulfate 325 MG Tab PO SCH ×2 (08:30→18:59)
[2016-12-02] MEDS: Cyanocobalamin (Vitamin B12) 1,000 MCG Tab PO SCH (08:30)
[2016-12-02] MEDS: Insulin Aspart 100 Units/ML 3 ML Pen SUBCUT SCH ×3 (08:30→16:27)
[2016-12-02] MEDS: Lisinopril 5 MG Tab PO SCH (08:36)
[2016-12-02] MEDS: Metoprolol Succinate 25 MG Tab.ER PO SCH (08:36)
[2016-12-02] MEDS: Sodium Chloride 0.9% 1,000 ML IV SCH (11:34)
[2016-12-02] MEDS ORDERED: Pantoprazole 40 MG Tab.CR ONE (16:26)
[2016-12-02] MEDS: Calcium Carbonate/Vitamin D3 1500 MG-400 Units Tab PO SCH (18:58)
[2016-12-02] MEDS: atorvaSTATin 40 MG Tab PO SCH (19:43)
[2016-12-03] MEDS: Sodium Chloride 0.9% 1,000 ML IV SCH (03:13)
[2016-12-03] MEDS: Insulin Aspart 100 Units/ML 3 ML Pen SUBCUT SCH ×5 (08:39→19:50)
[2016-12-03] MEDS: Simethicone 80 MG Tab.Chew PO SCH ×2 (08:40→19:49)
[2016-12-03] MEDS: Clopidogrel 75 MG Tab PO SCH (08:40)
[2016-12-03] MEDS: Lisinopril 5 MG Tab PO SCH (08:40)
[2016-12-03] MEDS: Ferrous Sulfate 325 MG Tab PO SCH (08:40)
[2016-12-03] MEDS: Aspirin 81 MG Tab.Chew PO SCH (08:40)
[2016-12-03] MEDS: Metoprolol Succinate 25 MG Tab.ER PO SCH (08:40)
[2016-12-03] MEDS: Potassium Chloride 10 MEQ Tab.ER PO SCH (08:40)
[2016-12-03] MEDS: Cyanocobalamin (Vitamin B12) 1,000 MCG Tab PO SCH (08:41)
[2016-12-03] MEDS: Magnesium Oxide 400 MG Tab PO SCH (08:41)
[2016-12-03] MEDS: Pantoprazole 40 MG Tab.CR PO SCH ×2 (08:45→17:19)
[2016-12-03] MEDS: Insulin Isophane NPH, Human 100 Units/ML 10 ML Vial SUBCUT SCH (11:22)
[2016-12-03] MEDS: Calcium Carbonate/Vitamin D3 1500 MG-400 Units Tab PO SCH (17:19)
[2016-12-03] MEDS: atorvaSTATin 40 MG Tab PO SCH (19:49)
[2016-12-04] MEDS: Ondansetron 4 MG Tab.DIS PO PRN (04:17)
[2016-12-04] MEDS: Pantoprazole 40 MG Tab.CR PO SCH ×2 (06:46→17:08)
[2016-12-04] MEDS: Metoprolol Succinate 25 MG Tab.ER PO SCH (08:29)
[2016-12-04] MEDS: Lisinopril 5 MG Tab PO SCH (08:30)
[2016-12-04] MEDS: Ferrous Sulfate 325 MG Tab PO SCH (08:30)
[2016-12-04] MEDS: Potassium Chloride 10 MEQ Tab.ER PO SCH (08:30)
[2016-12-04] MEDS: Cyanocobalamin (Vitamin B12) 1,000 MCG Tab PO SCH (08:31)
[2016-12-04] MEDS: Magnesium Oxide 400 MG Tab PO SCH (08:31)
[2016-12-04] MEDS: Simethicone 80 MG Tab.Chew PO SCH ×2 (08:31→20:17)
[2016-12-04] MEDS: Clopidogrel 75 MG Tab PO SCH (08:31)
[2016-12-04] MEDS: Aspirin 81 MG Tab.Chew PO SCH (08:32)
[2016-12-04] MEDS: Insulin Isophane NPH, Human 100 Units/ML 10 ML Vial SUBCUT SCH ×2 (08:32→18:09)
[2016-12-04] MEDS: Insulin Aspart 100 Units/ML 3 ML Pen SUBCUT SCH ×4 (08:36→20:21)
[2016-12-04] MEDS: Sodium Chloride 0.9% 1,000 ML IV SCH (11:11)
[2016-12-04] MEDS: Calcium Carbonate/Vitamin D3 1500 MG-400 Units Tab PO SCH (17:09)
[2016-12-04] MEDS: atorvaSTATin 40 MG Tab PO SCH (20:17)
[2016-12-04] MEDS: traMADol 50 MG Tab PO PRN (20:28)
[2016-12-05] MEDS: Pantoprazole 40 MG Tab.CR PO SCH ×2 (06:48→16:13)
--- NOTE | 2016-12-05 07:15 | PCM.PN ---
- General Info Date of Service: 12/04/16 Admission Dx/Problem (Free Text): Admission Diagnosis/Problem Admission Diagnosis/Problem Atrial fibrillation, post PE and DVT. Subjective Update: 12-04-16 Pt states no more loose stools. States some stomach upset and continues to have Zofran for nausea. No notable blood to urine or stool. States she has been trying to eat, but little appetite. - Review of Systems General: Reports: Weakness Pulmonary: Reports: No Symptoms Cardiovascular: Reports: No Symptoms Gastrointestinal: Reports: Decreased Appetite, Nausea. Denies: Diarrhea, Hematochezia Genitourinary: Reports: Incontinence. Denies: Burning, Pain Skin: Reports: No Symptoms - Patient Data Vitals - Most Recent: Last Vital Signs Temp 98.0 F 12/04/16 08:00 Pulse 111 H 12/04/16 08:29 Resp 16 12/04/16 08:00 BP 115/61 12/04/16 08:30 Pulse Ox 99 12/04/16 08:00 Weight - Most Recent: 200 lb 1.6 oz I&O - Last 24 Hours: Intake & Output 12/04/16 12/05/16 12/05/16 22:59 06:59 14:59 Intake Total 360 Balance 360 Lab Results Last 24 Hours: Laboratory Results - last 24 hr 12/04/16 12/04/16 12/04/16 Range/Units 07:09 08:30 08:30 PT 21.5 H D (9.0-11.5) sec INR 2.2 D (1.0-3.5) Sodium 131 L (136-145) mmol/L Potassium 4.0 (3.5-5.1) mmol/L Chloride 101 (98-107) mmol/L Carbon Dioxide 20.9 L (21.0-32.0) mmol/L Anion Gap 13.1 (5.0-15.0) mmol/L BUN 12 (8-26) mg/dL Creatinine 0.75 (0.55-1.02) mg/dL Est Cr Clr Drug Dosing 55.27 mL/min Estimated GFR (MDRD) > 60 (>60) MLS/MIN BUN/Creatinine Ratio 16.0 (6-25) Glucose 141 H (74-100) mg/dL POC Glucose 121 H (74-110) mg/dL Calcium 8.2 L (8.5-10.1) mg/dL 12/04/16 12/04/16 12/04/16 Range/Units 10:53 16:18 19:20 PT (9.0-11.5) sec INR (1.0-3.5) Sodium (136-145) mmol/L Potassium (3.5-5.1) mmol/L Chloride (98-107) mmol/L Carbon Dioxide (21.0-32.0) mmol/L Anion Gap (5.0-15.0) mmol/L BUN (8-26) mg/dL Creatinine (0.55-1.02) mg/dL Est Cr Clr Drug Dosing mL/min Estimated GFR (MDRD) (>60) MLS/MIN BUN/Creatinine Ratio (6-25) Glucose (74-100) mg/dL POC Glucose 161 H 104 136 H (74-110) mg/dL Calcium (8.5-10.1) mg/dL Med Orders - Current: Current Medications Aspirin (Aspirin) 81 mg PO DAILY [facility] Last Admin: 12/04/16 08:32 Dose: 81 mg Atorvastatin Calcium (Lipitor) 40 mg PO BEDTIME [facility] Last Admin: 12/04/16 20:17 Dose: 40 mg Calcium Carbonate (Caltrate 600+D 1500 Mg-400 Units) 1 tab PO DAILY@1800 [facility] Last Admin: 12/04/16 17:09 Dose: 1 tab Clopidogrel Bisulfate (Plavix) 75 mg PO DAILY [facility] Last Admin: 12/04/16 08:31 Dose: 75 mg Cyanocobalamin (Vitamin B12) 1,000 mcg PO DAILY [facility] Last Admin: 12/04/16 08:31 Dose: 1,000 mcg Ferrous Sulfate (Ferrous Sulfate) 325 mg PO WITHBREAKFAST [facility] Last Admin: 12/04/16 08:30 Dose: 325 mg Sodium Chloride (Normal Saline) 1,000 mls @ 30 mls/hr IV ASDIRECTED [facility] Last Admin: 12/04/16 11:11 Dose: 30 mls/hr Insulin Aspart (Novolog) 0 unit SUBCUT QID [facility] PRN Reason: Protocol Last Admin: 12/04/16 20:21 Dose: Not Given Insulin Human NPH (Humulin N) 7 unit SUBCUT DAILY@1700 [facility] Last Admin: 12/04/16 18:09 Dose: Not Given Insulin Human NPH (Humulin N) 9 unit SUBCUT DAILY [facility] Last Admin: 12/04/16 08:32 Dose: Not Given Lisinopril (Prinivil) 5 mg PO DAILY [facility] Last Admin: 12/04/16 08:30 Dose: 5 mg Loperamide HCl (Imodium) 2 mg PO QID PRN PRN Reason: DIARRHEA Last Admin: 11/26/16 10:14 Dose: 2 mg Magnesium Oxide (Magnesium Oxide) 200 mg PO DAILY [facility] Last Admin: 12/04/16 08:31 Dose: 200 mg Metoprolol Succinate (Toprol Xl) 25 mg PO DAILY [facility] Last Admin: 12/04/16 08:29 Dose: 25 mg Nitroglycerin (Nitrostat) 0.4 mg SL ASDIRECTED PRN PRN Reason: Chest Pain Ondansetron HCl (Zofran Odt) 4 mg PO Q8H PRN PRN Reason: Nausea/Vomiting Last Admin: 12/04/16 04:17 Dose: 4 mg Ondansetron HCl (Zofran) 4 mg IVPUSH Q6H PRN PRN Reason: Nausea/Vomiting Pantoprazole Sodium (Protonix) 40 mg PO 0700,1600 [facility] Last Admin: 12/05/16 06:48 Dose: 40 mg Potassium Chloride (Klor-Con 10) 10 meq PO DAILY [facility] Last Admin: 12/04/16 08:30 Dose: 10 meq Simethicone (Simethicone) 80 mg PO BID [facility] Last Admin: 12/04/16 20:17 Dose: 80 mg Tramadol HCl (Ultram) 50 mg PO Q6H PRN PRN Reason: moderate pain Last Admin: 12/04/16 20:28 Dose: 50 mg Tuberculin PPD (Aplisol) 5 unit IDERM ONETIME [facility] Warfarin Sodium (Coumadin) 0.5 mg PO DAILY@1800 [facility] Stop: 12/06/16 09:00 Last Admin: 12/04/16 17:09 Dose: 0.5 mg Discontinued Medications Calcium Carbonate/Glycine (Tums) 1,000 mg PO ONETIME ONE Stop: 11/10/16 17:41 Last Admin: 11/10/16 18:07 Dose: 1,000 mg Ciprofloxacin (Ciprofloxacin Hcl) 500 mg PO BID [facility] Stop: 12/02/16 20:01 Last Admin: 11/26/16 17:00 Dose: Not Given Diphenhydramine HCl (Benadryl) 50 mg PO ONETIME ONE Stop: 12/01/16 17:54 Last Admin: 12/01/16 18:15 Dose: 50 mg Ferrous Sulfate (Ferrous Sulfate) 325 mg PO BID [facility] Last Admin: 11/10/16 21:03 Dose: Not Given Ferrous Sulfate (Ferrous Sulfate) 325 mg PO BID@0800,1700 [facility] Last Admin: 12/02/16 18:59 Dose: 325 mg Hydrochlorothiazide (Hydrochlorothiazide) 12.5 mg PO DAILY [facility] Last Admin: 11/23/16 07:18 Dose: 12.5 mg Sodium Chloride (Normal Saline) 1,000 mls @ 125 mls/hr IV ASDIRECTED [facility] Last Infusion: 11/22/16 00:30 Dose: Infused Sodium Chloride (Normal Saline) 1,000 mls @ 75 mls/hr IV ASDIRECTED [facility] Last Admin: 12/02/16 11:34 Dose: 75 mls/hr Insulin Aspart (Novolog) 5 unit SUBCUT BID@0800,1700 [facility] Last Admin: 11/11/16 17:41 Dose: Not Given Insulin Aspart (Novolog) 5 unit SUBCUT DAILY [facility] Last Admin: 11/12/16 10:58 Dose: Not Given Insulin Human NPH (Humulin N) 8 unit SUBCUT BIDAC [facility] Last Admin: 11/09/16 17:26 Dose: 10 units Insulin Human NPH (Humulin N) 9 unit SUBCUT BID@0800,1700 [facility] Last Admin: 11/24/16 14:36 Dose: Not Given Isosorbide Mononitrate (Imdur) 30 mg PO DAILY [facility] Last Admin: 11/23/16 06:00 Dose: 30 mg Lisinopril (Prinivil) 20 mg PO DAILY [facility] Lisinopril (Prinivil) 10 mg PO DAILY [facility] Last Admin: 11/30/16 08:55 Dose: Not Given Lisinopril (Prinivil) 5 mg PO ONETIME ONE Stop: 12/01/16 11:16 Last Admin: 12/01/16 12:04 Dose: 5 mg Magnesium Oxide (Magnesium Oxide) 400 mg PO DAILY [facility] Last Admin: 11/21/16 08:48 Dose: 200 mg Medroxyprogesterone Acetate (Provera) 10 mg PO DAILY [facility] Last Admin: 11/24/16 18:46 Dose: 10 mg Metoprolol Succinate (Toprol Xl) 100 mg PO DAILY [facility] Last Admin: 11/13/16 08:40 Dose: 100 mg Metoprolol Succinate (Toprol Xl) 50 mg PO DAILY [facility] Metoprolol Succinate (Toprol Xl) 50 mg PO DAILY [facility] Last Admin: 11/30/16 08:55 Dose: 25 mg Metoprolol Succinate (Toprol Xl) 25 mg PO ONETIME ONE Stop: 12/01/16 11:16 Last Admin: 12/01/16 12:03 Dose: 25 mg Ondansetron HCl (Zofran) Confirm Administered Dose 4 mg .ROUTE .STK-MED ONE Stop: 11/30/16 19:47 Last Admin: 11/30/16 19:45 Dose: 4 mg [facility] Admin: 11/17/16 20:49 Dose: 40 mg Pantoprazole Sodium (Protonix) Confirm Administered Dose 40 mg .ROUTE .STK- MED ONE Stop: 12/02/16 16:27 Last Admin: 12/02/16 17:00 Dose: Not Given Potassium Chloride (Klor-Con M20) 20 meq PO BID [facility] Last Admin: 11/10/16 21:03 Dose: Not Given Potassium Chloride (Klor-Con M20) 20 meq PO BID@0800,1700 [facility] Last Admin: 11/24/16 07:41 Dose: 20 meq Potassium Chloride (Klor-Con 10) 10 meq PO BID [facility] Last Admin: 11/29/16 08:06 Dose: 10 meq Sodium Chloride (Saline Flush) 10 ml FLUSH BID [facility] Last Admin: 11/24/16 15:32 Dose: Not Given Tramadol HCl (Ultram) 50 mg PO Q6H PRN PRN Reason: MODERATE PAIN Trimethoprim/Sulfamethoxazole (Septra Ds) 0.5 tab PO BID [facility] Stop: 12/02/16 20:01 Last Admin: 12/02/16 19:42 Dose: 0.5 tab Tuberculin PPD (Aplisol) 5 unit IDERM ONETIME ONE Stop: 11/08/16 13:12 Last Admin: 11/09/16 16:11 Dose: Not Given Tuberculin PPD (Aplisol) 5 unit IDERM ONETIME ONE Stop: 11/09/16 16:14 Last Admin: 11/09/16 16:14 Dose: 5 unit Warfarin Sodium (Coumadin) 2.5 mg PO DAILY@1800 [facility] Last Admin: 11/12/16 17:58 Dose: 2.5 mg Warfarin Sodium (Coumadin) 2 mg PO DAILY@1800 [facility] Last Admin: 11/13/16 17:19 Dose: 2 mg Warfarin Sodium (Coumadin) 1 mg PO DAILY@1800 [facility] Last Admin: 11/20/16 17:50 Dose: 1 mg Warfarin Sodium (Coumadin) 1.5 mg PO DAILY@1800 [facility] Last Admin: 11/24/16 17:28 Dose: 1.5 mg Warfarin Sodium (Coumadin) 1 mg PO DAILY@1800 [facility] Last Admin: 11/26/16 18:34 Dose: 1 mg Warfarin Sodium (Coumadin) 0.5 mg PO DAILY@1800 [facility] Last Admin: 11/29/16 18:27 Dose: Not Given Warfarin Sodium (Coumadin) 0.5 mg PO DAILY@1800 [facility] Last Admin: 12/02/16 18:58 Dose: 0.5 mg - Exam General: Alert Lungs: Clear to Auscultation, Normal Respiratory Effort, Decreased Breath Sounds Cardiovascular: Irregular Rhythm GI/Abdominal Exam: Normal Bowel Sounds, Soft, Non-Tender Extremities: Normal Capillary Refill, Pedal Edema, Other (nonpitting edema noted to left foot/ankle) Peripheral Pulses: 2+: Dorsalis Pedis (L), Dorsalis Pedis (R) Skin: Warm, Dry - Problem List & Annotations (1) Atrial fibrillation SNOMED Code(s): 22632053 Code(s): I48.91 - UNSPECIFIED ATRIAL FIBRILLATION Status: Acute Priority : Medium Current Visit: No Qualifiers: Atrial fibrillation type: chronic Qualified Code(s): I48.2 - Chronic atrial fibrillation (2) Diabetes mellitus SNOMED Code(s): 56565306 Code(s): E11.9 - TYPE 2 DIABETES MELLITUS WITHOUT COMPLICATIONS Status: Chronic Priority: High Current Visit: No Qualifiers: Diabetes mellitus type: type 2 Diabetes mellitus skilled nursing insulin use: with skilled nursing use (3) Diarrhea SNOMED Code(s): 61331960 Code(s): R19.7 - DIARRHEA, UNSPECIFIED Status: Chronic Priority: Low Current Visit: No (4) Weakness generalized SNOMED Code(s): 00798936 Code(s): R53.1 - WEAKNESS Status: Acute Priority: High Current Visit: Yes (5) Grieving SNOMED Code(s): 958954976, 858855666 Code(s): F43.20 - ADJUSTMENT DISORDER, UNSPECIFIED Status: Acute Priority : Medium Current Visit: Yes Annotation/Comment:: Pt grieving loss of her . (6) Coagulation problem SNOMED Code(s): 05527225 Code(s): D68.9 - COAGULATION DEFECT, UNSPECIFIED Status: Acute Priority: High Current Visit: Yes Annotation/Comment:: 11-27-2016, status post PE and DVT with continuing Warfarin - Problem List Review Problem List Initiated/Reviewed/Updated: Yes - My Orders Last 24 Hours: My Active Orders 12/04/16 18:00 Warfarin [Coumadin] 0.5 mg PO DAILY@1800 12/06/16 08:00 INR,PT,PROTHROMBIN TIME [COAG] Routine - Assessment Assessment:: Weakness to upper and lower extremities, continue to work with PT/OT for strengthening to increase independence with positioning in bed and ambulation. Hx PE and atrial fibrillation: Continue with adjustment of Warfarin dose. PT/INR monitored every 48-72 hour with adjustment of medication. Imdur and HCTZ was d'cd after sagger soak visit, hypertension continued. Decrease in lisinopril and Metoprolol dose. Nausea with vomitting: Intermittent nausea with vomiting and controlled with use of Zofran prn. Diabetes type 2: Monitor blood sugars before meals and at hs. NPH insulin bid on hold and Novolog per sliding scale infrequently. Continue with consistent carb diet. Grieving and depressed mood: Pt to continue to express grief and review life events and accomplishments with family and staff. Mass to bladder area: Consulted Dr Weaver, urologist, Emmanuel Lawrence. He will see pt in [place] for consult and possible cystoscopy. Discuss option with family and arrange date for procedure with Dr Weaver's office. - Plan Plan:: 12-04-2016 Atrial Fibrillation: DVT precautions. BRUNILDA hose to lower extremities Full weight bearing. Medications as ordered. Changed Coumadin 0.5 mg PO daily. Diabetes Type 2: Monitor blood sugars ac and hs. Insulin as ordered. Insulin being held Heart healthy diet and consistent carb diet. Weakness: PT/OT continue with strengthening. Weakness to upper and lower extremities, continue to work with PT/OT for strengthening to increase independence with positioning in bed and ambulation. Hx PE and atrial fibrillation: Continue with adjustment of Warfarin dose. PT/INR monitored every 48-72 hour with adjustment of medication. Imdur and HCT d'cd. Nausea with vomitting: Intermittent nausea with vomiting and controlled with use of Zofran IV prn. IV fluids Nacl at 30 cc/hr. Fluid rate decreased with notable peripheral edema. Diabetes type 2: Monitor blood sugars before meals and at hs. NPH insulin bid and Novolog per sliding scale infrequently. Insulin is being held with low blood sugars and little appetite. Continue with consistent carb diet. Mass/clot to bladder area: Pt had CT 11-25-16 and mass/blood clot noted to bladder area. Will refer to urologist, Emmanuel Lawrence. Grieving: Pt states she is finally realizing her is gone and visiting with family about land and financial concerns. Possible discharge in 2-4 weeks to skilled nursing care facility with continued monitoring of Diabetes, atrial fibrillation, medications, PT/OT as needed and PT /INR with warfarin adjustments.
[2016-12-05] MEDS: Magnesium Oxide 400 MG Tab PO SCH (07:49)
[2016-12-05] MEDS: Clopidogrel 75 MG Tab PO SCH (07:50)
[2016-12-05] MEDS: Cyanocobalamin (Vitamin B12) 1,000 MCG Tab PO SCH (07:50)
[2016-12-05] MEDS: Aspirin 81 MG Tab.Chew PO SCH (07:50)
[2016-12-05] MEDS: Ferrous Sulfate 325 MG Tab PO SCH (07:51)
[2016-12-05] MEDS: Potassium Chloride 10 MEQ Tab.ER PO SCH (07:51)
[2016-12-05] MEDS: Simethicone 80 MG Tab.Chew PO SCH ×2 (07:52→19:27)
[2016-12-05] MEDS: Metoprolol Succinate 25 MG Tab.ER PO SCH (07:52)
[2016-12-05] MEDS: Lisinopril 5 MG Tab PO SCH (08:20)
[2016-12-05] MEDS: Insulin Aspart 100 Units/ML 3 ML Pen SUBCUT SCH ×3 (12:14→19:27)
[2016-12-05] MEDS: Insulin Isophane NPH, Human 100 Units/ML 10 ML Vial SUBCUT SCH (12:14)
[2016-12-05] MEDS: Calcium Carbonate/Vitamin D3 1500 MG-400 Units Tab PO SCH (17:35)
[2016-12-05] MEDS: atorvaSTATin 40 MG Tab PO SCH (19:27)
[2016-12-05] MEDS: Sodium Chloride 0.9% 1,000 ML IV SCH (19:27)
[2016-12-06] MEDS: traMADol 50 MG Tab PO PRN (08:21)
[2016-12-06] MEDS: Pantoprazole 40 MG Tab.CR PO SCH ×2 (09:02→17:51)
[2016-12-06] MEDS: Cyanocobalamin (Vitamin B12) 1,000 MCG Tab PO SCH (09:02)
[2016-12-06] MEDS: Potassium Chloride 10 MEQ Tab.ER PO SCH (09:02)
[2016-12-06] MEDS: Simethicone 80 MG Tab.Chew PO SCH ×2 (09:02→19:40)
[2016-12-06] MEDS: Ferrous Sulfate 325 MG Tab PO SCH (09:02)
[2016-12-06] MEDS: Clopidogrel 75 MG Tab PO SCH (09:02)
[2016-12-06] MEDS: Lisinopril 5 MG Tab PO SCH (09:03)
[2016-12-06] MEDS: Aspirin 81 MG Tab.Chew PO SCH (09:04)
[2016-12-06] MEDS: Magnesium Oxide 400 MG Tab PO SCH (09:04)
[2016-12-06] MEDS: Metoprolol Succinate 25 MG Tab.ER PO SCH (09:04)
[2016-12-06] MEDS: Insulin Aspart 100 Units/ML 3 ML Pen SUBCUT SCH ×4 (09:11→19:41)
[2016-12-06] MEDS ORDERED: diphenhydrAMINE 50 MG Cap PO ONE (13:24)
[2016-12-06] MEDS ORDERED: Pantoprazole 40 MG Tab.CR ONE (17:20)
--- NOTE | 2016-12-06 17:27 | PCM.SN ---
- Free Text/Narrative Note: 12-06-16, PT/INR 2.8 today. Will hold Coumadin today with coumadin 0.5 mg PO tomorrow and check PT/INR 12-08-16. Pt has completed her antibiotic for the UTI. Blood sugars have remained controlled with Novolog insulin and no NPH insulin. Will consult urologist tomorrow for possible cystoscopy in [place].
[2016-12-06] MEDS: Calcium Carbonate/Vitamin D3 1500 MG-400 Units Tab PO SCH (17:51)
[2016-12-06] MEDS: atorvaSTATin 40 MG Tab PO SCH (19:40)
[2016-12-07] MEDS: Sodium Chloride 0.9% 1,000 ML IV SCH (03:00)
[2016-12-07] MEDS: Ferrous Sulfate 325 MG Tab PO SCH (06:28)
[2016-12-07] MEDS: Clopidogrel 75 MG Tab PO SCH (08:41)
[2016-12-07] MEDS: Aspirin 81 MG Tab.Chew PO SCH (08:41)
[2016-12-07] MEDS: Potassium Chloride 10 MEQ Tab.ER PO SCH (08:41)
[2016-12-07] MEDS: Cyanocobalamin (Vitamin B12) 1,000 MCG Tab PO SCH (08:41)
[2016-12-07] MEDS: Magnesium Oxide 400 MG Tab PO SCH (08:41)
[2016-12-07] MEDS: Simethicone 80 MG Tab.Chew PO SCH ×2 (08:41→19:47)
[2016-12-07] MEDS: Metoprolol Succinate 25 MG Tab.ER PO SCH (08:42)
[2016-12-07] MEDS: Lisinopril 5 MG Tab PO SCH (08:43)
[2016-12-07] MEDS: Insulin Aspart 100 Units/ML 3 ML Pen SUBCUT SCH ×3 (08:45→18:21)
[2016-12-07] MEDS: Pantoprazole 40 MG Tab.CR PO SCH ×2 (08:49→16:43)
[2016-12-07] MEDS: Loperamide 2 MG Cap PO PRN (16:43)
--- NOTE | 2016-12-07 17:40 | PCM.SN ---
- Free Text/Narrative Note: 12-07-16 pt states feeling weak and had loose stool X 1 this am. Daughter is with her now. Pt states she can't eat certain foods, or she will get diarrhea. Daughter had brought her a couple long giuliano timothy to eat. States juice will give her loose stools. No BM since 11-27-16, expect more stooling for today. Discussed possible mass to bladder, discussed transport to [place] for consult with urology, with possible cystoscopy or surgery. Pt is too weak to tolerate surgery and Coumadin, Plavix and ASA would need to be held for 1 week prior. With recent cardiac stent and PE/DVT, the risk of reoccurence without medication for 1 week is great. With weakness and recent hx of cardiac stent, PE/DVT, will hold off on transport to [facility] for urology consult. Pt and daughter in agreement with this. Continue with PT/OT for strengthening. With increase in fuentes stool, will check CBC in am. PT/INR already scheduled for tomorrow. Continue with IV fluids and current medication.
[2016-12-07] MEDS: Calcium Carbonate/Vitamin D3 1500 MG-400 Units Tab PO SCH (18:21)
[2016-12-07] MEDS: traMADol 50 MG Tab PO PRN (19:48)
[2016-12-07] MEDS: atorvaSTATin 40 MG Tab PO SCH (19:48)
[2016-12-08] MEDS: Insulin Aspart 100 Units/ML 3 ML Pen SUBCUT SCH ×5 (02:07→21:07)
[2016-12-08] MEDS: Loperamide 2 MG Cap PO PRN ×3 (05:30→08:22)
[2016-12-08] MEDS: Pantoprazole 40 MG Tab.CR PO SCH ×2 (06:45→16:20)
[2016-12-08] MEDS: Clopidogrel 75 MG Tab PO SCH (08:20)
[2016-12-08] MEDS: Ferrous Sulfate 325 MG Tab PO SCH (08:20)
[2016-12-08] MEDS: Potassium Chloride 10 MEQ Tab.ER PO SCH (08:20)
[2016-12-08] MEDS: Cyanocobalamin (Vitamin B12) 1,000 MCG Tab PO SCH (08:21)
[2016-12-08] MEDS: Simethicone 80 MG Tab.Chew PO SCH ×2 (08:21→21:07)
[2016-12-08] MEDS: Magnesium Oxide 400 MG Tab PO SCH (08:21)
[2016-12-08] MEDS: Aspirin 81 MG Tab.Chew PO SCH (08:21)
[2016-12-08] MEDS: Metoprolol Succinate 25 MG Tab.ER PO SCH (09:20)
[2016-12-08] MEDS: Lisinopril 5 MG Tab PO SCH (09:20)
[2016-12-08] MEDS: traMADol 50 MG Tab PO PRN (13:46)
[2016-12-08] MEDS: Ondansetron 4 MG Tab.DIS PO PRN (16:19)
[2016-12-08] MEDS: Insulin Isophane NPH, Human 100 Units/ML 10 ML Vial SUBCUT SCH (17:17)
[2016-12-08] MEDS: Calcium Carbonate/Vitamin D3 1500 MG-400 Units Tab PO SCH (17:29)
[2016-12-08] MEDS: atorvaSTATin 40 MG Tab PO SCH (21:07)
[2016-12-08] MEDS: Sodium Chloride 0.9% 10 ML Syringe FLUSH SCH (21:07)
[2016-12-09] MEDS: Loperamide 2 MG Cap PO PRN ×4 (01:34→19:51)
[2016-12-09] MEDS: Clopidogrel 75 MG Tab PO SCH (08:15)
[2016-12-09] MEDS: Magnesium Oxide 400 MG Tab PO SCH (08:16)
[2016-12-09] MEDS: Simethicone 80 MG Tab.Chew PO SCH ×2 (08:16→19:50)
[2016-12-09] MEDS: Potassium Chloride 10 MEQ Tab.ER PO SCH (08:16)
[2016-12-09] MEDS: Cyanocobalamin (Vitamin B12) 1,000 MCG Tab PO SCH (08:16)
[2016-12-09] MEDS: Aspirin 81 MG Tab.Chew PO SCH (08:16)
[2016-12-09] MEDS: Ferrous Sulfate 325 MG Tab PO SCH (08:17)
[2016-12-09] MEDS: Pantoprazole 40 MG Tab.CR PO SCH ×2 (08:23→16:48)
[2016-12-09] MEDS: Insulin Aspart 100 Units/ML 3 ML Pen SUBCUT SCH ×4 (08:38→19:50)
[2016-12-09] MEDS: Insulin Isophane NPH, Human 100 Units/ML 10 ML Vial SUBCUT SCH ×2 (08:41→17:27)
[2016-12-09] MEDS: Sodium Chloride 0.9% 10 ML Syringe FLUSH SCH ×2 (08:45→19:53)
[2016-12-09] MEDS: Lisinopril 5 MG Tab PO SCH (09:27)
[2016-12-09] MEDS: Metoprolol Succinate 25 MG Tab.ER PO SCH (09:28)
[2016-12-09] MEDS: Calcium Carbonate/Vitamin D3 1500 MG-400 Units Tab PO SCH (17:27)
[2016-12-09] MEDS: atorvaSTATin 40 MG Tab PO SCH (19:50)
[2016-12-10] MEDS: Pantoprazole 40 MG Tab.CR PO SCH ×2 (07:10→17:14)
[2016-12-10] MEDS: Sodium Chloride 0.9% 10 ML Syringe FLUSH SCH ×2 (08:04→20:18)
[2016-12-10] MEDS: Potassium Chloride 10 MEQ Tab.ER PO SCH (08:05)
[2016-12-10] MEDS: Magnesium Oxide 400 MG Tab PO SCH (08:05)
[2016-12-10] MEDS: Ferrous Sulfate 325 MG Tab PO SCH (08:05)
[2016-12-10] MEDS: Cyanocobalamin (Vitamin B12) 1,000 MCG Tab PO SCH (08:05)
[2016-12-10] MEDS: Aspirin 81 MG Tab.Chew PO SCH (08:05)
[2016-12-10] MEDS: Clopidogrel 75 MG Tab PO SCH (08:05)
[2016-12-10] MEDS: Metoprolol Succinate 25 MG Tab.ER PO SCH (08:06)
[2016-12-10] MEDS: Lisinopril 5 MG Tab PO SCH (08:06)
[2016-12-10] MEDS: Simethicone 80 MG Tab.Chew PO SCH ×2 (08:06→20:05)
[2016-12-10] MEDS: Loperamide 2 MG Cap PO PRN ×3 (08:06→17:16)
[2016-12-10] MEDS: Insulin Isophane NPH, Human 100 Units/ML 10 ML Vial SUBCUT SCH ×2 (08:10→17:26)
[2016-12-10] MEDS: Insulin Aspart 100 Units/ML 3 ML Pen SUBCUT SCH ×4 (08:10→20:06)
[2016-12-10] MEDS: Calcium Carbonate/Vitamin D3 1500 MG-400 Units Tab PO SCH (17:35)
[2016-12-10] MEDS: atorvaSTATin 40 MG Tab PO SCH (20:05)
[2016-12-11] MEDS: traMADol 50 MG Tab PO PRN ×3 (04:06→15:45)
[2016-12-11] MEDS: Pantoprazole 40 MG Tab.CR PO SCH ×2 (07:22→15:45)
[2016-12-11] MEDS: Sodium Chloride 0.9% 10 ML Syringe FLUSH SCH ×2 (08:00→20:47)
[2016-12-11] MEDS: Insulin Isophane NPH, Human 100 Units/ML 10 ML Vial SUBCUT SCH (08:00)
[2016-12-11] MEDS: Potassium Chloride 10 MEQ Tab.ER PO SCH (09:39)
[2016-12-11] MEDS: Aspirin 81 MG Tab.Chew PO SCH (09:39)
[2016-12-11] MEDS: Ferrous Sulfate 325 MG Tab PO SCH (09:39)
[2016-12-11] MEDS: Magnesium Oxide 400 MG Tab PO SCH (09:40)
[2016-12-11] MEDS: Insulin Aspart 100 Units/ML 3 ML Pen SUBCUT SCH ×4 (09:41→20:55)
[2016-12-11] MEDS: Simethicone 80 MG Tab.Chew PO SCH ×2 (09:42→20:47)
[2016-12-11] MEDS: Lisinopril 5 MG Tab PO SCH (09:42)
[2016-12-11] MEDS: Clopidogrel 75 MG Tab PO SCH (09:42)
[2016-12-11] MEDS: Metoprolol Succinate 25 MG Tab.ER PO SCH (09:42)
[2016-12-11] MEDS: Cyanocobalamin (Vitamin B12) 1,000 MCG Tab PO SCH (09:43)
[2016-12-11] MEDS: Loperamide 2 MG Cap PO PRN (11:29)
[2016-12-11] MEDS: Ondansetron 4 MG Tab.DIS PO PRN (18:07)
[2016-12-11] MEDS: Calcium Carbonate/Vitamin D3 1500 MG-400 Units Tab PO SCH (18:14)
[2016-12-11] MEDS: atorvaSTATin 40 MG Tab PO SCH (20:47)
[2016-12-12] MEDS: Ondansetron 4 MG Tab.DIS PO PRN (02:53)
[2016-12-12] MEDS: traMADol 50 MG Tab PO PRN (02:53)
[2016-12-12] MEDS: Pantoprazole 40 MG Tab.CR PO SCH ×2 (06:04→16:47)
[2016-12-12] MEDS: Ferrous Sulfate 325 MG Tab PO SCH (08:06)
[2016-12-12] MEDS: Simethicone 80 MG Tab.Chew PO SCH ×2 (08:06→19:34)
[2016-12-12] MEDS: Magnesium Oxide 400 MG Tab PO SCH (08:06)
[2016-12-12] MEDS: Aspirin 81 MG Tab.Chew PO SCH (08:06)
[2016-12-12] MEDS: Cyanocobalamin (Vitamin B12) 1,000 MCG Tab PO SCH (08:06)
[2016-12-12] MEDS: Clopidogrel 75 MG Tab PO SCH (08:06)
[2016-12-12] MEDS: Potassium Chloride 10 MEQ Tab.ER PO SCH (08:06)
[2016-12-12] MEDS: Metoprolol Succinate 25 MG Tab.ER PO SCH (08:07)
[2016-12-12] MEDS: Insulin Aspart 100 Units/ML 3 ML Pen SUBCUT SCH ×4 (08:09→19:34)
[2016-12-12] MEDS: Lisinopril 5 MG Tab PO SCH (08:09)
[2016-12-12] MEDS: Sodium Chloride 0.9% 10 ML Syringe FLUSH SCH ×2 (08:13→20:00)
[2016-12-12] MEDS: Calcium Carbonate/Vitamin D3 1500 MG-400 Units Tab PO SCH (18:35)
[2016-12-12] MEDS: atorvaSTATin 40 MG Tab PO SCH (19:34)
[2016-12-13] MEDS: traMADol 50 MG Tab PO PRN (05:28)
[2016-12-13] MEDS: Pantoprazole 40 MG Tab.CR PO SCH ×2 (06:42→18:10)
[2016-12-13] MEDS: Clopidogrel 75 MG Tab PO SCH (07:43)
[2016-12-13] MEDS: Lisinopril 5 MG Tab PO SCH (07:43)
[2016-12-13] MEDS: Metoprolol Succinate 25 MG Tab.ER PO SCH (07:43)
[2016-12-13] MEDS: Aspirin 81 MG Tab.Chew PO SCH (07:43)
[2016-12-13] MEDS: Potassium Chloride 10 MEQ Tab.ER PO SCH (07:44)
[2016-12-13] MEDS: Magnesium Oxide 400 MG Tab PO SCH (07:44)
[2016-12-13] MEDS: Simethicone 80 MG Tab.Chew PO SCH ×2 (07:45→19:42)
[2016-12-13] MEDS: Cyanocobalamin (Vitamin B12) 1,000 MCG Tab PO SCH (07:45)
[2016-12-13] MEDS: Insulin Aspart 100 Units/ML 3 ML Pen SUBCUT SCH ×4 (07:45→19:44)
[2016-12-13] MEDS: Ferrous Sulfate 325 MG Tab PO SCH (07:45)
[2016-12-13] MEDS ORDERED: Metoprolol Succinate 25 MG Tab.ER ONE (08:19)
[2016-12-13] MEDS: Metoprolol Succinate 50 MG Tab.ER PO SCH (10:32)
[2016-12-13] MEDS: Sodium Chloride 0.9% 10 ML Syringe FLUSH SCH ×2 (10:32→20:37)
[2016-12-13] MEDS: Sulfamethoxazole/Trimethoprim 800-160 MG Tab PO SCH ×2 (13:16→19:43)
[2016-12-13] MEDS: Dextrose 5%-0.9% NaCl 1,000 ML IV ONE (17:45)
--- NOTE | 2016-12-13 17:50 | PCM.PN ---
- General Info Date of Service: 12/13/16 Admission Dx/Problem (Free Text): Admission Diagnosis/Problem Admission Diagnosis/Problem Atrial fibrillation, post PE and DVT. Subjective Update: Pt feeling weak and little appetite. Functional Status: Reports: Tolerating Diet. Denies: Ambulating - Review of Systems General: Reports: Weakness, Malaise Pulmonary: Reports: No Symptoms Cardiovascular: Reports: Palpitations Gastrointestinal: Reports: Other (intermittent abdominal pain) Genitourinary: Reports: Incontinence Neurological: Reports: Other (intermittent confusion) - Patient Data Vitals - Most Recent: Last Vital Signs Temp 97 F 12/13/16 13:04 Pulse 136 H 12/13/16 13:04 Resp 20 12/13/16 13:04 BP 112/67 12/13/16 13:04 Pulse Ox 99 12/13/16 13:04 Weight - Most Recent: 200 lb 12.8 oz Lab Results Last 24 Hours: Laboratory Results - last 24 hr 12/12/16 12/13/16 12/13/16 Range/Units 18:29 06:35 07:20 WBC (4.0-11.0) K/uL RBC (3.80-5.80) M/uL Hgb (11.5-16.5) g/dL Hct (37.0-47.0) % MCV (76-96) fL MCH (27.0-32.0) pg MCHC (31.0-35.0) g/dL RDW (11.0-16.0) % Plt Count (150-500) K/uL MPV (6.0-10.0) fL Neut % (Auto) (45.0-70.0) % Lymph % (Auto) (20.0-40.0) % [place] % (Auto) (3.0-10.0) % Eos % (Auto) (1.0-5.0) % Baso % (Auto) (0.0-0.5) % Neut # (Auto) (2.00-7.50) K/uL Lymph # (Auto) (1.50-4.00) K/uL [place] # (Auto) (0.20-0.80) K/uL Eos # (Auto) (0.04-0.40) K/uL Baso # (Auto) (0.02-0.10) K/uL Whole Blood INR 2.7 (1.0-3.5) Sodium (136-145) mmol/L Potassium (3.5-5.1) mmol/L Chloride (98-107) mmol/L Carbon Dioxide (21.0-32.0) mmol/L Anion Gap (5.0-15.0) mmol/L BUN (8-26) mg/dL Creatinine (0.55-1.02) mg/dL Est Cr Clr Drug Dosing mL/min Estimated GFR (MDRD) (>60) MLS/MIN BUN/Creatinine Ratio (6-25) Glucose (74-100) mg/dL POC Glucose 132 H 107 (74-110) mg/dL Calcium (8.5-10.1) mg/dL Total Bilirubin (0.0-1.0) mg/dL AST (15-37) U/L ALT (12-78) U/L Alkaline Phosphatase (46-116) U/L B-Natriuretic Peptide (0-450) pg/mL Total Protein (6.4-8.2) g/dL Albumin (3.4-5.0) g/dL Globulin (2.2-4.2) g/dL Albumin/Globulin Ratio (0.8-2.0) TSH, Ultra Sensitive (0.358-3.740) uIU/mL Urine Color Urine Appearance (CLEAR) Urine pH (5.0-8.0) Ur Specific [place] (1.003-1.030) Urine Protein (NEGATIVE) mg/dL Urine Glucose (UA) (NEGATIVE) mg/dL Urine Ketones (NEGATIVE) mg/dL Urine Occult Blood (NEGATIVE) Urine Nitrite (NEGATIVE) Urine Bilirubin (NEGATIVE) Urine Urobilinogen (0.2-1.0) E.U./dL Ur Leukocyte Esterase (NEGATIVE) Urine RBC /HPF Urine WBC /HPF Urine WBC Clumps /HPF Ur Squamous Epith Cells /HPF Urine Bacteria /HPF 12/13/16 12/13/16 12/13/16 Range/Units 08:55 09:15 09:15 WBC 5.4 (4.0-11.0) K/uL RBC 4.43 (3.80-5.80) M/uL Hgb 11.7 (11.5-16.5) g/dL Hct 35.1 L (37.0-47.0) % MCV 79 (76-96) fL MCH 26.4 L (27.0-32.0) pg MCHC 33.3 (31.0-35.0) g/dL RDW 19.4 H (11.0-16.0) % Plt Count 319 (150-500) K/uL MPV 9.1 (6.0-10.0) fL Neut % (Auto) 70.4 H (45.0-70.0) % Lymph % (Auto) 21.7 (20.0-40.0) % [place] % (Auto) 7.7 (3.0-10.0) % Eos % (Auto) 0.2 L (1.0-5.0) % Baso % (Auto) 0.0 (0.0-0.5) % Neut # (Auto) 3.83 (2.00-7.50) K/uL Lymph # (Auto) 1.18 L (1.50-4.00) K/uL [place] # (Auto) 0.42 (0.20-0.80) K/uL Eos # (Auto) 0.01 L (0.04-0.40) K/uL Baso # (Auto) 0.00 L (0.02-0.10) K/uL Whole Blood INR (1.0-3.5) Sodium 132 L (136-145) mmol/L Potassium 3.5 (3.5-5.1) mmol/L Chloride 98 (98-107) mmol/L Carbon Dioxide 24.0 (21.0-32.0) mmol/L Anion Gap 13.5 (5.0-15.0) mmol/L BUN 20 D (8-26) mg/dL Creatinine 0.84 (0.55-1.02) mg/dL Est Cr Clr Drug Dosing 49.35 mL/min Estimated GFR (MDRD) > 60 (>60) MLS/MIN BUN/Creatinine Ratio 23.8 (6-25) Glucose 103 H (74-100) mg/dL POC Glucose (74-110) mg/dL Calcium 7.3 L (8.5-10.1) mg/dL Total Bilirubin 0.7 D (0.0-1.0) mg/dL AST 43 H (15-37) U/L ALT 57 (12-78) U/L Alkaline Phosphatase 112 (46-116) U/L B-Natriuretic Peptide 3966 H D (0-450) pg/mL Total Protein 4.9 L (6.4-8.2) g/dL Albumin 1.9 L (3.4-5.0) g/dL Globulin 3.0 (2.2-4.2) g/dL Albumin/Globulin Ratio 0.6 L (0.8-2.0) TSH, Ultra Sensitive 1.047 (0.358-3.740) uIU/mL Urine Color Yellow Urine Appearance Cloudy (CLEAR) Urine pH 7.0 (5.0-8.0) Ur Specific [place] 1.025 (1.003-1.030) Urine Protein 100 H (NEGATIVE) mg/dL Urine Glucose (UA) Negative (NEGATIVE) mg/dL Urine Ketones 40 H (NEGATIVE) mg/dL Urine Occult Blood Moderate H (NEGATIVE) Urine Nitrite Positive H (NEGATIVE) Urine Bilirubin Small H (NEGATIVE) Urine Urobilinogen 1.0 (0.2-1.0) E.U./dL Ur Leukocyte Esterase Large H (NEGATIVE) Urine RBC 10-20 H /HPF Urine WBC Semi-packed H /HPF Urine WBC Clumps Occasional /HPF Ur Squamous Epith Cells Not seen /HPF Urine Bacteria Many H /HPF 12/13/16 Range/Units 11:10 WBC (4.0-11.0) K/uL RBC (3.80-5.80) M/uL Hgb (11.5-16.5) g/dL Hct (37.0-47.0) % MCV (76-96) fL MCH (27.0-32.0) pg MCHC (31.0-35.0) g/dL RDW (11.0-16.0) % Plt Count (150-500) K/uL MPV (6.0-10.0) fL Neut % (Auto) (45.0-70.0) % Lymph % (Auto) (20.0-40.0) % [place] % (Auto) (3.0-10.0) % Eos % (Auto) (1.0-5.0) % Baso % (Auto) (0.0-0.5) % Neut # (Auto) (2.00-7.50) K/uL Lymph # (Auto) (1.50-4.00) K/uL [place] # (Auto) (0.20-0.80) K/uL Eos # (Auto) (0.04-0.40) K/uL Baso # (Auto) (0.02-0.10) K/uL Whole Blood INR (1.0-3.5) Sodium (136-145) mmol/L Potassium (3.5-5.1) mmol/L Chloride (98-107) mmol/L Carbon Dioxide (21.0-32.0) mmol/L Anion Gap (5.0-15.0) mmol/L BUN (8-26) mg/dL Creatinine (0.55-1.02) mg/dL Est Cr Clr Drug Dosing mL/min Estimated GFR (MDRD) (>60) MLS/MIN BUN/Creatinine Ratio (6-25) Glucose (74-100) mg/dL POC Glucose 107 (74-110) mg/dL Calcium (8.5-10.1) mg/dL Total Bilirubin (0.0-1.0) mg/dL AST (15-37) U/L ALT (12-78) U/L Alkaline Phosphatase (46-116) U/L B-Natriuretic Peptide (0-450) pg/mL Total Protein (6.4-8.2) g/dL Albumin (3.4-5.0) g/dL Globulin (2.2-4.2) g/dL Albumin/Globulin Ratio (0.8-2.0) TSH, Ultra Sensitive (0.358-3.740) uIU/mL Urine Color Urine Appearance (CLEAR) Urine pH (5.0-8.0) Ur Specific [place] (1.003-1.030) Urine Protein (NEGATIVE) mg/dL Urine Glucose (UA) (NEGATIVE) mg/dL Urine Ketones (NEGATIVE) mg/dL Urine Occult Blood (NEGATIVE) Urine Nitrite (NEGATIVE) Urine Bilirubin (NEGATIVE) Urine Urobilinogen (0.2-1.0) E.U./dL Ur Leukocyte Esterase (NEGATIVE) Urine RBC /HPF Urine WBC /HPF Urine WBC Clumps /HPF Ur Squamous Epith Cells /HPF Urine Bacteria /HPF Med Orders - Current: Current Medications Aspirin (Aspirin) 81 mg PO DAILY [facility] Last Admin: 12/13/16 07:43 Dose: 81 mg Atorvastatin Calcium (Lipitor) 40 mg PO BEDTIME [facility] Last Admin: 12/12/16 19:34 Dose: 40 mg Calcium Carbonate (Caltrate 600+D 1500 Mg-400 Units) 1 tab PO DAILY@1800 [facility] Last Admin: 12/12/16 18:35 Dose: 1 tab Clopidogrel Bisulfate (Plavix) 75 mg PO DAILY [facility] Last Admin: 12/13/16 07:43 Dose: 75 mg Cyanocobalamin (Vitamin B12) 1,000 mcg PO DAILY [facility] Last Admin: 12/13/16 07:45 Dose: 1,000 mcg Ferrous Sulfate (Ferrous Sulfate) 325 mg PO DAILY [facility] Last Admin: 12/13/16 07:45 Dose: 325 mg Dextrose/Sodium Chloride (Dextrose 5%-Normal Saline) 1,000 mls @ 75 mls/hr IV ASDIRECTED ONE Stop: 12/14/16 07:01 Insulin Aspart (Novolog) 0 unit SUBCUT QID [facility] PRN Reason: Protocol Last Admin: 12/13/16 13:16 Dose: Not Given Loperamide HCl (Imodium) 2 mg PO QID PRN PRN Reason: DIARRHEA Last Admin: 12/11/16 11:29 Dose: 2 mg Magnesium Oxide (Magnesium Oxide) 200 mg PO DAILY [facility] Last Admin: 12/13/16 07:44 Dose: 200 mg Metoprolol Succinate (Toprol Xl) 50 mg PO DAILY [facility] Last Admin: 12/13/16 10:32 Dose: Not Given Nitroglycerin (Nitrostat) 0.4 mg SL ASDIRECTED PRN PRN Reason: Chest Pain Ondansetron HCl (Zofran Odt) 4 mg PO Q8H PRN PRN Reason: Nausea/Vomiting Last Admin: 12/12/16 02:53 Dose: 4 mg Ondansetron HCl (Zofran) 4 mg IVPUSH Q6H PRN PRN Reason: Nausea/Vomiting Pantoprazole Sodium (Protonix) 40 mg PO DAILY@0700,1600 [facility] Last Admin: 12/13/16 06:42 Dose: 40 mg Potassium Chloride (Klor-Con 10) 10 meq PO DAILY [facility] Last Admin: 12/13/16 07:44 Dose: 10 meq Simethicone (Simethicone) 80 mg PO BID [facility] Last Admin: 12/13/16 07:45 Dose: 80 mg Sodium Chloride (Saline Flush) 10 ml FLUSH BID [facility] Last Admin: 12/13/16 10:32 Dose: Not Given Tramadol HCl (Ultram) 50 mg PO Q6H PRN PRN Reason: moderate pain Last Admin: 12/13/16 05:28 Dose: 50 mg Trimethoprim/Sulfamethoxazole (Septra Ds) 0.5 tab PO BID [facility] Stop: 12/19/16 20:01 Last Admin: 12/13/16 13:16 Dose: 0.5 tab Tuberculin PPD (Aplisol) 5 unit IDERM ONETIME [facility] Discontinued Medications Calcium Carbonate/Glycine (Tums) 1,000 mg PO ONETIME ONE Stop: 11/10/16 17:41 Last Admin: 11/10/16 18:07 Dose: 1,000 mg Ciprofloxacin (Ciprofloxacin Hcl) 500 mg PO BID [facility] Stop: 12/02/16 20:01 Last Admin: 11/26/16 17:00 Dose: Not Given Diphenhydramine HCl (Benadryl) 50 mg PO ONETIME ONE Stop: 12/01/16 17:54 Last Admin: 12/01/16 18:15 Dose: 50 mg Diphenhydramine HCl (Benadryl) 50 mg PO STAT ONE Stop: 12/06/16 13:25 Last Admin: 12/06/16 13:30 Dose: 50 mg Ferrous Sulfate (Ferrous Sulfate) 325 mg PO BID [facility] Last Admin: 11/10/16 21:03 Dose: Not Given Ferrous Sulfate (Ferrous Sulfate) 325 mg PO BID@0800,1700 [facility] Last Admin: 12/02/16 18:59 Dose: 325 mg Ferrous Sulfate (Ferrous Sulfate) 325 mg PO WITHBREAKFAST [facility] Last Admin: 12/09/16 08:17 Dose: 325 mg Hydrochlorothiazide (Hydrochlorothiazide) 12.5 mg PO DAILY [facility] Last Admin: 11/23/16 07:18 Dose: 12.5 mg Sodium Chloride (Normal Saline) 1,000 mls @ 125 mls/hr IV ASDIRECTED [facility] Last Infusion: 11/22/16 00:30 Dose: Infused Sodium Chloride (Normal Saline) 1,000 mls @ 75 mls/hr IV ASDIRECTED [facility] Last Admin: 12/02/16 11:34 Dose: 75 mls/hr Sodium Chloride (Normal Saline) 1,000 mls @ 30 mls/hr IV ASDIRECTED [facility] Last Admin: 12/07/16 03:00 Dose: 30 mls/hr Insulin Aspart (Novolog) 5 unit SUBCUT BID@0800,1700 [facility] Last Admin: 11/11/16 17:41 Dose: Not Given Insulin Aspart (Novolog) 5 unit SUBCUT DAILY [facility] Last Admin: 11/12/16 10:58 Dose: Not Given Insulin Human NPH (Humulin N) 8 unit SUBCUT BIDAC [facility] Last Admin: 11/09/16 17:26 Dose: 10 units Insulin Human NPH (Humulin N) 9 unit SUBCUT BID@0800,1700 [facility] Last Admin: 11/24/16 14:36 Dose: Not Given Insulin Human NPH (Humulin N) 7 unit SUBCUT DAILY@1700 [facility] Last Admin: 12/10/16 17:26 Dose: 7 unit Insulin Human NPH (Humulin N) 9 unit SUBCUT DAILY [facility] Last Admin: 12/11/16 08:00 Dose: Not Given Isosorbide Mononitrate (Imdur) 30 mg PO DAILY [facility] Last Admin: 11/23/16 06:00 Dose: 30 mg Lisinopril (Prinivil) 20 mg PO DAILY [facility] Lisinopril (Prinivil) 10 mg PO DAILY [facility] Last Admin: 11/30/16 08:55 Dose: Not Given Lisinopril (Prinivil) 5 mg PO DAILY [facility] Last Admin: 12/13/16 07:43 Dose: 5 mg Lisinopril (Prinivil) 5 mg PO ONETIME ONE Stop: 12/01/16 11:16 Last Admin: 12/01/16 12:04 Dose: 5 mg Magnesium Oxide (Magnesium Oxide) 400 mg PO DAILY [facility] Last Admin: 11/21/16 08:48 Dose: 200 mg Medroxyprogesterone Acetate (Provera) 10 mg PO DAILY [facility] Last Admin: 11/24/16 18:46 Dose: 10 mg Metoprolol Succinate (Toprol Xl) 100 mg PO DAILY [facility] Last Admin: 11/13/16 08:40 Dose: 100 mg Metoprolol Succinate (Toprol Xl) 50 mg PO DAILY [facility] Metoprolol Succinate (Toprol Xl) 50 mg PO DAILY [facility] Last Admin: 11/30/16 08:55 Dose: 25 mg Metoprolol Succinate (Toprol Xl) 25 mg PO DAILY [facility] Last Admin: 12/13/16 07:43 Dose: 25 mg Metoprolol Succinate (Toprol Xl) 25 mg PO ONETIME ONE Stop: 12/01/16 11:16 Last Admin: 12/01/16 12:03 Dose: 25 mg Metoprolol Succinate (Toprol Xl) Confirm Administered Dose 25 mg .ROUTE .STK- MED ONE Stop: 12/13/16 08:20 Last Admin: 12/13/16 08:25 Dose: 25 mg Ondansetron HCl (Zofran) Confirm Administered Dose 4 mg .ROUTE .STK-MED ONE Stop: 11/30/16 19:47 Last Admin: 11/30/16 19:45 Dose: 4 mg Pantoprazole Sodium (Protonix) 40 mg PO BIDAC [facility] Last Admin: 11/17/16 20:49 Dose: 40 mg Pantoprazole Sodium (Protonix) 40 mg PO 0700,1600 [facility] Last Admin: 12/07/16 08:49 Dose: 40 mg Pantoprazole Sodium (Protonix) Confirm Administered Dose 40 mg .ROUTE .STK- MED ONE Stop: 12/02/16 16:27 Last Admin: 12/02/16 17:00 Dose: Not Given Pantoprazole Sodium (Protonix) Confirm Administered Dose 40 mg .ROUTE .STK- MED ONE Stop: 12/06/16 17:21 Last Admin: 12/06/16 17:52 Dose: Not Given Potassium Chloride (Klor-Con M20) 20 meq PO BID [facility] Last Admin: 11/10/16 21:03 Dose: Not Given Potassium Chloride (Klor-Con M20) 20 meq PO BID@0800,1700 [facility] Last Admin: 11/24/16 07:41 Dose: 20 meq Potassium Chloride (Klor-Con 10) 10 meq PO BID [facility] Last Admin: 11/29/16 08:06 Dose: 10 meq Sodium Chloride (Saline Flush) 10 ml FLUSH BID [facility] Last Admin: 11/24/16 15:32 Dose: Not Given Tramadol HCl (Ultram) 50 mg PO Q6H PRN PRN Reason: MODERATE PAIN Trimethoprim/Sulfamethoxazole (Septra Ds) 0.5 tab PO BID [facility] Stop: 12/02/16 20:01 Last Admin: 12/02/16 19:42 Dose: 0.5 tab Tuberculin PPD (Aplisol) 5 unit IDERM ONETIME ONE Stop: 11/08/16 13:12 Last Admin: 11/09/16 16:11 Dose: Not Given Tuberculin PPD (Aplisol) 5 unit IDERM ONETIME ONE Stop: 11/09/16 16:14 Last Admin: 11/09/16 16:14 Dose: 5 unit Warfarin Sodium (Coumadin) 2.5 mg PO DAILY@1800 [facility] Last Admin: 11/12/16 17:58 Dose: 2.5 mg Warfarin Sodium (Coumadin) 2 mg PO DAILY@1800 [facility] Last Admin: 11/13/16 17:19 Dose: 2 mg Warfarin Sodium (Coumadin) 1 mg PO DAILY@1800 [facility] Last Admin: 11/20/16 17:50 Dose: 1 mg Warfarin Sodium (Coumadin) 1.5 mg PO DAILY@1800 [facility] Last Admin: 11/24/16 17:28 Dose: 1.5 mg Warfarin Sodium (Coumadin) 1 mg PO DAILY@1800 [facility] Last Admin: 11/26/16 18:34 Dose: 1 mg Warfarin Sodium (Coumadin) 0.5 mg PO DAILY@1800 [facility] Last Admin: 11/29/16 18:27 Dose: Not Given Warfarin Sodium (Coumadin) 0.5 mg PO DAILY@1800 [facility] Last Admin: 12/02/16 18:58 Dose: 0.5 mg Warfarin Sodium (Coumadin) 0.5 mg PO DAILY@1800 [facility] Stop: 12/06/16 09:00 Last Admin: 12/05/16 17:35 Dose: 0.5 mg - Exam General: Alert, No Acute Distress, Lethargic Neck: Supple Lungs: Normal Respiratory Effort Cardiovascular: Irregular Rhythm, Tachycardia GI/Abdominal Exam: Soft, Non-Tender Skin: Warm, Dry, Intact Psy/Mental Status: Alert, Normal Affect - Problem List & Annotations (1) Atrial fibrillation SNOMED Code(s): 13338435 Code(s): I48.91 - UNSPECIFIED ATRIAL FIBRILLATION Status: Acute Priority : High Current Visit: Yes Qualifiers: Atrial fibrillation type: chronic Qualified Code(s): I48.2 - Chronic atrial fibrillation Annotation/Comment:: 12-13-2016 Tachycardia today with atrial fib, rate 130-140, Increase dose of Metoprolol this am. (2) Diabetes mellitus SNOMED Code(s): 95352717 Code(s): E11.9 - TYPE 2 DIABETES MELLITUS WITHOUT COMPLICATIONS Status: Chronic Priority: Medium Current Visit: No Qualifiers: Diabetes mellitus type: type 2 Diabetes mellitus skilled nursing insulin use: with skilled nursing use Annotation/Comment:: 12-13-16: No NPH insulin since 12-10-16 and blood sugars have been less than 150. Pt eating small amounts. (3) Diarrhea SNOMED Code(s): 77749524 Code(s): R19.7 - DIARRHEA, UNSPECIFIED Status: Chronic Priority: Low Current Visit: No (4) Weakness generalized SNOMED Code(s): 73485375 Code(s): R53.1 - WEAKNESS Status: Acute Priority: High Current Visit: Yes Annotation/Comment:: 12-13-16 Pt being transferred with use of rubens lift. (5) Grieving SNOMED Code(s): 925438709, 939573000 Code(s): F43.20 - ADJUSTMENT DISORDER, UNSPECIFIED Status: Acute Priority : Medium Current Visit: Yes Annotation/Comment:: Pt grieving loss of her . (6) Coagulation problem SNOMED Code(s): 16167664 Code(s): D68.9 - COAGULATION DEFECT, UNSPECIFIED Status: Acute Priority: High Current Visit: Yes Annotation/Comment:: 12-13-16 No warfarin for about 1 week. Last dose was 12-05-2016 PT=2.6 - Problem List Review Problem List Initiated/Reviewed/Updated: Yes - My Orders Last 24 Hours: My Active Orders 12/13/16 10:30 Telemetry Monitoring [Cardiac Monitoring] [RC] .As Directed 12/13/16 12:15 Sulfamethoxazole/Trimethoprim [Septra DS] 0.5 tab PO BID 12/13/16 17:42 Dextrose 5%-0.9% NaCl [Dextrose 5%-Normal Saline] 1,000 ml IV ASDIRECTED 12/14/16 08:00 BASIC METABOLIC PANEL,BMP [CHEM] Routine - Assessment Assessment:: 12-13-2016 Weakness to upper and lower extremities, continue to work with PT/OT as tolerated for strengthening to increase independence with positioning in bed. Hx PE and atrial fibrillation: Increase in heart rate today. Decrease in lisinopril and Metoprolol dose increased. Iv fluids D5NS fluid bolus of 250cc, then rate 75 cc/hr. If heart rate not decreased, will start Cardizem 30 mg PO bid for heart rate. Consult with Dr Cornejo this am. Repeat CBC, TSH, BMP and BNP today. Repeat BMP in am. Lab values reviewed today. Sodium level slightly low, but consistent normal for pt. BNP elevated, but decreased from previous level. Nausea with vomitting: Intermittent nausea controlled with use of Zofran prn. Diabetes type 2: Monitor blood sugars before meals and at hs. Novolog per sliding scale infrequently. Continue with consistent carb diet as tolerated. Grieving and depressed mood: Pt to continue to express grief and review life events and accomplishments with family and staff. Mass to bladder area: Pt would need to have Plavix and ASA held for 1 week before cystoscopy and biopsy, Risk of DVT/PE greater than benefit of having bladder biopsy. Will hold on this for now. - Plan Plan:: 12-04-2016 Atrial Fibrillation: DVT precautions. BRUNILDA hose to lower extremities Full weight bearing. Medications as ordered. Changed Coumadin 0.5 mg PO daily. Diabetes Type 2: Monitor blood sugars ac and hs. Insulin as ordered. Insulin being held Heart healthy diet and consistent carb diet. Weakness: PT/OT continue with strengthening. Weakness to upper and lower extremities, continue to work with PT/OT for strengthening to increase independence with positioning in bed and ambulation. Hx PE and atrial fibrillation: Continue with adjustment of Warfarin dose. PT/INR monitored every 48-72 hour with adjustment of medication. Imdur and HCT d'cd. Nausea with vomitting: Intermittent nausea with vomiting and controlled with use of Zofran IV prn. IV fluids Nacl at 30 cc/hr. Fluid rate decreased with notable peripheral edema. Diabetes type 2: Monitor blood sugars before meals and at hs. NPH insulin bid and Novolog per sliding scale infrequently. Insulin is being held with low blood sugars and little appetite. Continue with consistent carb diet. Mass/clot to bladder area: Pt had CT 11-25-16 and mass/blood clot noted to bladder area. Will refer to urologist, Emmanuel Lawrence. Grieving: Pt states she is finally realizing her is gone and visiting with family about land and financial concerns. Possible discharge in 2-4 weeks to [facility] with continued monitoring of Diabetes, atrial fibrillation, medications, PT/OT as needed and PT /INR with warfarin adjustments.
[2016-12-13] MEDS: Calcium Carbonate/Vitamin D3 1500 MG-400 Units Tab PO SCH (18:10)
[2016-12-13] MEDS ORDERED: Diltiazem IR 60 MG Tab ONE (18:23)
[2016-12-13] MEDS: Diltiazem IR 60 MG Tab PO ONE ×2 (19:27→20:39)
[2016-12-13] MEDS: atorvaSTATin 40 MG Tab PO SCH (19:43)
[2016-12-14] MEDS: Diltiazem IR 60 MG Tab PO SCH ×4 (02:12→20:19)
[2016-12-14] MEDS: Dextrose 5%-0.9% NaCl 1,000 ML IV ONE (05:19)
[2016-12-14] MEDS: Pantoprazole 40 MG Tab.CR PO SCH ×2 (06:37→15:27)
[2016-12-14] MEDS: Sodium Chloride 0.9% 10 ML Syringe FLUSH SCH ×2 (08:30→20:45)
--- NOTE | 2016-12-14 08:42 | PCM.SN ---
- Free Text/Narrative Note: 12-14-16 Pt feeling better today. Confusion persists intermittently. States she had some pressure feeling to chest in night and didn't sleep very well. States IV site infiltrated this am. Cardizem started last night for rapid heart rate 130-140. Iv D5NS at 75 cc h/r ran through night and infiltrated this am. No current IV going, difficulty with venous access, small veins. EKG today to assess any changes with her tachycardia yesterday and chest pressure during hs. Pt continues with telemetry. Lungs sounds clear today. Peripheral edema noted to hips. Recommend pt to be up in chair today if tolerates, try to improve cardiac output with change of position and up in chair. Pt continues with charcoal colored stools. Skin intact without breakdown.
[2016-12-14] MEDS: Metoprolol Succinate 50 MG Tab.ER PO SCH (09:02)
[2016-12-14] MEDS: Cyanocobalamin (Vitamin B12) 1,000 MCG Tab PO SCH (09:03)
[2016-12-14] MEDS: Ferrous Sulfate 325 MG Tab PO SCH (09:05)
[2016-12-14] MEDS: Magnesium Oxide 400 MG Tab PO SCH (09:06)
[2016-12-14] MEDS: Sulfamethoxazole/Trimethoprim 800-160 MG Tab PO SCH ×2 (09:07→20:45)
[2016-12-14] MEDS: Potassium Chloride 10 MEQ Tab.ER PO SCH (09:08)
[2016-12-14] MEDS: Simethicone 80 MG Tab.Chew PO SCH ×2 (09:11→20:20)
[2016-12-14] MEDS: Aspirin 81 MG Tab.Chew PO SCH (09:11)
[2016-12-14] MEDS: Clopidogrel 75 MG Tab PO SCH (09:12)
[2016-12-14] MEDS: Insulin Aspart 100 Units/ML 3 ML Pen SUBCUT SCH ×3 (10:16→16:00)
[2016-12-14] MEDS ORDERED: Bisacodyl 10 MG Supp RECTAL PRN (11:07)
[2016-12-14] MEDS: Calcium Carbonate/Vitamin D3 1500 MG-400 Units Tab PO SCH (17:50)
[2016-12-14] MEDS: atorvaSTATin 40 MG Tab PO SCH (20:20)
[2016-12-15] MEDS: Diltiazem IR 60 MG Tab PO SCH ×4 (00:30→19:55)
[2016-12-15] MEDS: Insulin Aspart 100 Units/ML 3 ML Pen SUBCUT SCH ×5 (05:59→20:04)
[2016-12-15] MEDS: Pantoprazole 40 MG Tab.CR PO SCH ×2 (06:16→16:59)
[2016-12-15] MEDS: Sulfamethoxazole/Trimethoprim 800-160 MG Tab PO SCH ×2 (07:24→19:56)
[2016-12-15] MEDS: Aspirin 81 MG Tab.Chew PO SCH (07:24)
[2016-12-15] MEDS: Simethicone 80 MG Tab.Chew PO SCH ×2 (07:25→19:55)
[2016-12-15] MEDS: Clopidogrel 75 MG Tab PO SCH (07:25)
[2016-12-15] MEDS: Magnesium Oxide 400 MG Tab PO SCH (07:25)
[2016-12-15] MEDS: Ferrous Sulfate 325 MG Tab PO SCH (07:25)
[2016-12-15] MEDS: Cyanocobalamin (Vitamin B12) 1,000 MCG Tab PO SCH (07:25)
[2016-12-15] MEDS: Potassium Chloride 10 MEQ Tab.ER PO SCH (07:25)
[2016-12-15] MEDS: Metoprolol Succinate 50 MG Tab.ER PO SCH (07:29)
[2016-12-15] MEDS: Sodium Chloride 0.9% 10 ML Syringe FLUSH SCH ×2 (09:33→10:37)
[2016-12-15] MEDS: traMADol 50 MG Tab PO PRN (10:34)
[2016-12-15] MEDS: Calcium Carbonate/Vitamin D3 1500 MG-400 Units Tab PO SCH (16:59)
[2016-12-15] MEDS: atorvaSTATin 40 MG Tab PO SCH (22:35)
[2016-12-16] MEDS: Diltiazem IR 60 MG Tab PO SCH ×3 (05:54→20:42)
[2016-12-16] MEDS: Aspirin 81 MG Tab.Chew PO SCH (15:41)
[2016-12-16] MEDS: Pantoprazole 40 MG Tab.CR PO SCH ×2 (15:41→20:42)
[2016-12-16] MEDS: Magnesium Oxide 400 MG Tab PO SCH (15:42)
[2016-12-16] MEDS: Ferrous Sulfate 325 MG Tab PO SCH (15:42)
[2016-12-16] MEDS: Insulin Aspart 100 Units/ML 3 ML Pen SUBCUT SCH ×2 (15:42→20:44)
[2016-12-16] MEDS: Potassium Chloride 10 MEQ Tab.ER PO SCH (15:42)
[2016-12-16] MEDS: Clopidogrel 75 MG Tab PO SCH (15:44)
[2016-12-16] MEDS: Metoprolol Succinate 50 MG Tab.ER PO SCH (15:44)
[2016-12-16] MEDS: Sulfamethoxazole/Trimethoprim 800-160 MG Tab PO SCH ×2 (15:44→20:43)
[2016-12-16] MEDS: Simethicone 80 MG Tab.Chew PO SCH ×2 (15:44→20:44)
[2016-12-16] MEDS: Cyanocobalamin (Vitamin B12) 1,000 MCG Tab PO SCH (15:44)
[2016-12-16] MEDS: Calcium Carbonate/Vitamin D3 1500 MG-400 Units Tab PO SCH (20:42)
[2016-12-16] MEDS: atorvaSTATin 40 MG Tab PO SCH (20:43)
[2016-12-17] MEDS: Diltiazem IR 60 MG Tab PO SCH ×4 (03:08→20:00)
[2016-12-17] MEDS: Metoprolol Succinate 50 MG Tab.ER PO SCH (09:51)
[2016-12-17] MEDS: Clopidogrel 75 MG Tab PO SCH (09:52)
[2016-12-17] MEDS: Potassium Chloride 10 MEQ Tab.ER PO SCH (09:53)
[2016-12-17] MEDS: Sulfamethoxazole/Trimethoprim 800-160 MG Tab PO SCH ×2 (09:54→20:00)
[2016-12-17] MEDS: Pantoprazole 40 MG Tab.CR PO SCH ×2 (10:21→19:10)
[2016-12-17] MEDS: Aspirin 81 MG Tab.Chew PO SCH (10:21)
[2016-12-17] MEDS: Ferrous Sulfate 325 MG Tab PO SCH (10:21)
[2016-12-17] MEDS: Simethicone 80 MG Tab.Chew PO SCH ×2 (10:22→20:00)
[2016-12-17] MEDS: Magnesium Oxide 400 MG Tab PO SCH (10:22)
[2016-12-17] MEDS: Insulin Aspart 100 Units/ML 3 ML Pen SUBCUT SCH ×4 (10:22→20:00)
[2016-12-17] MEDS: Cyanocobalamin (Vitamin B12) 1,000 MCG Tab PO SCH (10:22)
[2016-12-17] MEDS: Calcium Carbonate/Vitamin D3 1500 MG-400 Units Tab PO SCH (19:10)
[2016-12-18] MEDS: atorvaSTATin 40 MG Tab PO SCH ×2 (01:07→19:53)
[2016-12-18] MEDS: Diltiazem IR 60 MG Tab PO SCH ×4 (02:00→19:52)
[2016-12-18] MEDS: traMADol 50 MG Tab PO PRN (04:00)
[2016-12-18] MEDS ORDERED: HYDROmorphone 2 MG/ML Syringe ONE (05:14)
[2016-12-18] MEDS: HYDROmorphone 2 MG/ML Syringe SUBCUT PRN ×3 (09:00→19:35)
[2016-12-18] MEDS: Aspirin 81 MG Tab.Chew PO SCH (09:39)
[2016-12-18] MEDS: Pantoprazole 40 MG Tab.CR PO SCH ×2 (09:39→16:25)
[2016-12-18] MEDS: Potassium Chloride 10 MEQ Tab.ER PO SCH (09:40)
[2016-12-18] MEDS: Magnesium Oxide 400 MG Tab PO SCH (09:40)
[2016-12-18] MEDS: Insulin Aspart 100 Units/ML 3 ML Pen SUBCUT SCH ×4 (09:40→19:52)
[2016-12-18] MEDS: Ferrous Sulfate 325 MG Tab PO SCH (09:40)
[2016-12-18] MEDS: Metoprolol Succinate 50 MG Tab.ER PO SCH (09:41)
[2016-12-18] MEDS: Clopidogrel 75 MG Tab PO SCH (09:41)
[2016-12-18] MEDS: Simethicone 80 MG Tab.Chew PO SCH ×2 (09:41→19:53)
[2016-12-18] MEDS: Sulfamethoxazole/Trimethoprim 800-160 MG Tab PO SCH ×2 (09:41→19:51)
[2016-12-18] MEDS: Cyanocobalamin (Vitamin B12) 1,000 MCG Tab PO SCH (09:42)
[2016-12-18 15:51] VITALS: BP 75/48
[2016-12-18] MEDS: Calcium Carbonate/Vitamin D3 1500 MG-400 Units Tab PO SCH (19:51)
[2016-12-18] MEDS ORDERED: Scopolamine 1.5 MG Transdermal Patch ONE (20:12)
[2016-12-18] MEDS ORDERED: Scopolamine 1.5 MG Transdermal Patch TRDERM PRN (20:16)
--- NOTE | 2016-12-18 23:39 | PCM.SN ---
- Free Text/Narrative Note: EMERALD 12-15-16 18:00 Pt weak today with limited intake. PT/INR=2.8. Coumadin remains on hold. Vital signs decreasing. Pt placed on palliative care. Pt status discussed with Dr Cornejo and BETO Galeano. Encourage family to visit if desired, as pt is declining. Provide comfort measures for pt. Dr Cornejo updated interface control officer physician for the weekend for the care of pt.
--- NOTE | 2016-12-18 23:51 | PCM.SN ---
- Free Text/Narrative Note: 12-18-16 LE 08:30 BETO Arreola notified provider of pt declining status. Assisted staff with cleaning pt of large amount of blood to depends with turning pt. Daughter is with pt and notified her brother of pt status. Discussed pt status with daughter and will keep pt comfortable with end of life care. Oxygen started at 6 lpm N/C for comfort. vital signs declining. Labs ordered this am. Daughter states her mother had a good life and wants her to be comfortable and at peace with her . 12:15pm Checked on pt. Pt comfortable and resting well. Daughter at bedside. Staff giving Dilaudid, 0.5 mg sq for comfort. BETO Arreola reports steady decline in status. 17:30pm Checked on pt. Pt comfortable and daughter at bedside. States pt unresponsive and resting and hasn't opened eyes since this am. Breathing more labored at this time. Oxygen continues per N/C. Daughter states her niece is coming in to be with her. States all of pt's family and her Dad's family live in [place] and [place] and she has contacted them to update on pt status. States she hasn't been able to get in touch with a couple family members, but will keep trying. Offered support and rest in room and spend the evening as desired. 20:55pm BETO Barrios contacted provider of pt 20:25. Family with pt at time of and states wishes for home to be notified.
--- NOTE | 2016-12-19 | PCM.DCSUM1 ---
Discharge Summary - Hospital Course Free Text/Narrative:: 12-18-16 LE Pt status decline with CHF, DVT, PE, and GI bleed. CT showed possible mass to bladder and mass to adrenals, hx of uterine cancer with diarrhea stools for the last 9 yr. Pt not surgical candidate for colonoscopy and unable to do cystoscopy with possible biopsy due to risk of bleed with use of plavix, ASA and coumadin. Risk of DVT/PE if plavix and ASA stopped for diagnostic. Dr Weaver, urologist was consulted and Wilson catheter was placed in bladder to determine if blood clots to bladder. Small blood clot was passed around catheter shortley after insertion and no clots in urine after placement of catheter. Pt was too weak for transport to [facility] [place] for the procedure. Pt placed on palliative care 12-15-2016. Family stated they want her to be comfortable. Stated she had no desire to live after her 's . Vital signs and health status steadily declined over the weekend and GI bleed, rectally noted 12-18-16 am. Daughter at bedside, dilaudid and Oxygen per N/C used to keep pt comfortable. Pt unresponsive and not taking anything orally. Scopolamine patch used to decrease oral secretions for comfort. Pt 20:25. - Discharge Data Discharge Date: 12/18/16 Discharge Disposition: 20 Preliminary Cause of *Q: Multi System Organ Failure Condition: - Discharge Diagnosis/Problem(s) (1) Atrial fibrillation SNOMED Code(s): 26884408 ICD Code: I48.91 - UNSPECIFIED ATRIAL FIBRILLATION Status: Resolved Priority: High Qualifiers: Atrial fibrillation type: chronic Qualified Code(s): I48.2 - Chronic atrial fibrillation (2) Diabetes mellitus SNOMED Code(s): 64692215 ICD Code: E11.9 - TYPE 2 DIABETES MELLITUS WITHOUT COMPLICATIONS Status: Resolved Priority: Medium Qualifiers: Diabetes mellitus type: type 2 (3) Diarrhea SNOMED Code(s): 16140429 ICD Code: R19.7 - DIARRHEA, UNSPECIFIED Status: Resolved Priority: Low (4) Weakness generalized SNOMED Code(s): 19242330 ICD Code: R53.1 - WEAKNESS Status: Resolved Priority: High (5) Grieving SNOMED Code(s): 454176725 ICD Code: F43.20 - ADJUSTMENT DISORDER, UNSPECIFIED Status: Resolved Priority: Medium (6) Coagulation problem SNOMED Code(s): 78096218 ICD Code: D68.9 - COAGULATION DEFECT, UNSPECIFIED Status: Resolved Priority: High - Discharge Plan Home Medications: Home Meds Insulin Isophane NPH, Human [NovoLIN N] 8 units SUBCUT BID 09/09/16 [History] Lisinopril/Hydrochlorothiazide [Lisinopril-Hctz 20-12.5 mg Tab] 12.5 - 20 each PO DAILY 09/09/16 [History] Clopidogrel Bisulfate [Clopidogrel] 75 mg PO DAILY 10/31/16 [History] Cyanocobalamin (Vitamin B-12) [B-12] 2,500 mg PO DAILY 10/31/16 [History] Ferrous Sulfate [Iron] 325 mg PO BID 10/31/16 [History] Isosorbide Mononitrate [Isosorbide Mononitrate ER] 30 mg PO DAILY 10/31/16 [ History] Lutein/Minerals/Vit A,C & E [Ocuvite] 1 tab PO DAILY 10/31/16 [History] Magnesium Oxide [Magnesium] 400 mg PO DAILY 10/31/16 [History] Metoprolol Succinate [Toprol XL 100mg] 100 mg PO DAILY 10/31/16 [History] Multivitamin [Super Multivitamin] 1 each PO DAILY 10/31/16 [History] Nitroglycerin 0.4 mg SL ASDIRECTED PRN 10/31/16 [History] Pantoprazole [ProTONIX] 40 mg PO DAILY 10/31/16 [History] atorvaSTATin [Lipitor] 40 mg PO BEDTIME 10/31/16 [History] traMADol [Ultram] 50 mg PO Q6H 10/31/16 [History] Aspirin [Jose L Chewable] 81 mg PO DAILY 11/08/16 [History] Loperamide [Imodium] 2 mg PO Q6H PRN 11/08/16 [History] Potassium Chloride 20 meq PO DAILY 11/08/16 [History] - Discharge Summary/Plan Comment Discharge Summary/Plan Comment: EMERALD 12-18-16 pt 20:25, contacted by BETO Barrios. - Patient Data Vitals - Most Recent: Last Vital Signs Temp 96.8 F 12/18/16 12:00 Pulse 117 H 12/18/16 12:00 Resp 15 12/18/16 12:00 BP 75/48 L 12/18/16 12:00 Pulse Ox 92 L 12/18/16 20:00 Weight - Most Recent: 200 lb 12.8 oz Lab Results - Last 24 hrs: Laboratory Results - last 24 hr 12/18/16 12/18/16 12/18/16 Range/Units 13:34 13:34 13:34 WBC 12.0 H D (4.0-11.0) K/uL RBC 3.57 L (3.80-5.80) M/uL Hgb 9.4 L (11.5-16.5) g/dL Hct 28.3 L (37.0-47.0) % MCV 79 (76-96) fL MCH 26.3 L (27.0-32.0) pg MCHC 33.2 (31.0-35.0) g/dL RDW 19.9 H (11.0-16.0) % Plt Count 229 D (150-500) K/uL MPV 9.6 (6.0-10.0) fL Neut % (Auto) 84.5 H (45.0-70.0) % Lymph % (Auto) 13.1 L (20.0-40.0) % Teller % (Auto) 2.3 L (3.0-10.0) % Eos % (Auto) 0.0 L (1.0-5.0) % Baso % (Auto) 0.1 (0.0-0.5) % Neut # (Auto) 10.17 H (2.00-7.50) K/uL Lymph # (Auto) 1.57 (1.50-4.00) K/uL Teller # (Auto) 0.28 (0.20-0.80) K/uL Eos # (Auto) 0.00 L (0.04-0.40) K/uL Baso # (Auto) 0.01 L (0.02-0.10) K/uL PT 29.2 H D (9.0-11.5) sec INR 3.1 D (1.0-3.5) Sodium 133 L (136-145) mmol/L Potassium 5.0 (3.5-5.1) mmol/L Chloride 105 (98-107) mmol/L Carbon Dioxide 16.2 L D (21.0-32.0) mmol/L Anion Gap 16.8 H (5.0-15.0) mmol/L BUN 39 H D (8-26) mg/dL Creatinine 1.49 H D (0.55-1.02) mg/dL Est Cr Clr Drug Dosing 27.82 mL/min Estimated GFR (MDRD) 33 L (>60) MLS/MIN BUN/Creatinine Ratio 26.2 H (6-25) Glucose 187 H (74-100) mg/dL Calcium 7.5 L (8.5-10.1) mg/dL Total Bilirubin 1.2 H D (0.0-1.0) mg/dL AST 164 H (15-37) U/L ALT 148 H (12-78) U/L Alkaline Phosphatase 108 (46-116) U/L Total Protein 4.2 L (6.4-8.2) g/dL Albumin 1.5 L (3.4-5.0) g/dL Globulin 2.7 (2.2-4.2) g/dL Albumin/Globulin Ratio 0.6 L (0.8-2.0) Med Orders - Current: Current Medications Discontinued Medications Aspirin (Aspirin) 81 mg PO DAILY [facility] Last Admin: 12/18/16 09:39 Dose: Not Given Atorvastatin Calcium (Lipitor) 40 mg PO BEDTIME [facility] Last Admin: 12/18/16 19:53 Dose: Not Given Bisacodyl (Dulcolax) 10 mg RECTAL ONETIME PRN PRN Reason: Constipation Calcium Carbonate (Caltrate 600+D 1500 Mg-400 Units) 1 tab PO DAILY@1800 [facility] Last Admin: 12/18/16 19:51 Dose: Not Given Calcium Carbonate/Glycine (Tums) 1,000 mg PO ONETIME ONE Stop: 11/10/16 17:41 Last Admin: 11/10/16 18:07 Dose: 1,000 mg Ciprofloxacin (Ciprofloxacin Hcl) 500 mg PO BID [facility] Stop: 12/02/16 20:01 Last Admin: 11/26/16 17:00 Dose: Not Given Clopidogrel Bisulfate (Plavix) 75 mg PO DAILY [facility] Last Admin: 12/18/16 09:41 Dose: Not Given Cyanocobalamin (Vitamin B12) 1,000 mcg PO DAILY [facility] Last Admin: 12/18/16 09:42 Dose: Not Given Diltiazem HCl (Cardizem) Confirm Administered Dose 60 mg .ROUTE .STK-MED ONE Stop: 12/13/16 18:24 Last Admin: 12/13/16 18:33 Dose: 60 mg Diltiazem HCl (Cardizem) 30 mg PO ONETIME ONE Stop: 12/13/16 18:46 Last Admin: 12/13/16 20:39 Dose: 30 mg Diltiazem HCl (Cardizem) 30 mg PO Q6H [facility] Last Admin: 12/18/16 19:52 Dose: Not Given Diphenhydramine HCl (Benadryl) 50 mg PO ONETIME ONE Stop: 12/01/16 17:54 Last Admin: 12/01/16 18:15 Dose: 50 mg Diphenhydramine HCl (Benadryl) 50 mg PO STAT ONE Stop: 12/06/16 13:25 Last Admin: 12/06/16 13:30 Dose: 50 mg Ferrous Sulfate (Ferrous Sulfate) 325 mg PO BID [facility] Last Admin: 11/10/16 21:03 Dose: Not Given Ferrous Sulfate (Ferrous Sulfate) 325 mg PO BID@0800,1700 [facility] Last Admin: 12/02/16 18:59 Dose: 325 mg Ferrous Sulfate (Ferrous Sulfate) 325 mg PO WITHBREAKFAST [facility] Last Admin: 12/09/16 08:17 Dose: 325 mg Ferrous Sulfate (Ferrous Sulfate) 325 mg PO DAILY [facility] Last Admin: 12/18/16 09:40 Dose: Not Given Hydrochlorothiazide (Hydrochlorothiazide) 12.5 mg PO DAILY [facility] Last Admin: 11/23/16 07:18 Dose: 12.5 mg Hydromorphone HCl (Dilaudid) 0.5 mg SUBCUT Q4H PRN PRN Reason: Pain Last Admin: 12/18/16 19:35 Dose: 0.5 mg Hydromorphone HCl (Dilaudid) Confirm Administered Dose 2 mg .ROUTE .STK-MED ONE Stop: 12/18/16 05:15 Last Admin: 12/18/16 05:15 Dose: 2 mg Sodium Chloride (Normal Saline) 1,000 mls @ 125 mls/hr IV ASDIRECTED [facility] Last Infusion: 11/22/16 00:30 Dose: Infused Sodium Chloride (Normal Saline) 1,000 mls @ 75 mls/hr IV ASDIRECTED [facility] Last Admin: 12/02/16 11:34 Dose: 75 mls/hr Sodium Chloride (Normal Saline) 1,000 mls @ 30 mls/hr IV ASDIRECTED [facility] Last Admin: 12/07/16 03:00 Dose: 30 mls/hr Dextrose/Sodium Chloride (Dextrose 5%-Normal Saline) 1,000 mls @ 75 mls/hr IV ASDIRECTED ONE Stop: 12/14/16 07:01 Last Admin: 12/14/16 05:19 Dose: 75 mls/hr Insulin Aspart (Novolog) 5 unit SUBCUT BID@0800,1700 [facility] Last Admin: 11/11/16 17:41 Dose: Not Given Insulin Aspart (Novolog) 5 unit SUBCUT DAILY [facility] Last Admin: 11/12/16 10:58 Dose: Not Given Insulin Aspart (Novolog) 0 unit SUBCUT QID [facility] PRN Reason: Protocol Last Admin: 12/18/16 19:52 Dose: Not Given Insulin Human NPH (Humulin N) 8 unit SUBCUT BIDAC [facility] Last Admin: 11/09/16 17:26 Dose: 10 units Insulin Human NPH (Humulin N) 9 unit SUBCUT BID@0800,1700 [facility] Last Admin: 11/24/16 14:36 Dose: Not Given Insulin Human NPH (Humulin N) 7 unit SUBCUT DAILY@1700 [facility] Last Admin: 12/10/16 17:26 Dose: 7 unit Insulin Human NPH (Humulin N) 9 unit SUBCUT DAILY [facility] Last Admin: 12/11/16 08:00 Dose: Not Given Isosorbide Mononitrate (Imdur) 30 mg PO DAILY [facility] Last Admin: 11/23/16 06:00 Dose: 30 mg Lisinopril (Prinivil) 20 mg PO DAILY [facility] Lisinopril (Prinivil) 10 mg PO DAILY [facility] Last Admin: 11/30/16 08:55 Dose: Not Given Lisinopril (Prinivil) 5 mg PO DAILY [facility] Last Admin: 12/13/16 07:43 Dose: 5 mg Lisinopril (Prinivil) 5 mg PO ONETIME ONE Stop: 12/01/16 11:16 Last Admin: 12/01/16 12:04 Dose: 5 mg Loperamide HCl (Imodium) 2 mg PO QID PRN PRN Reason: DIARRHEA Last Admin: 12/11/16 11:29 Dose: 2 mg Magnesium Oxide (Magnesium Oxide) 400 mg PO DAILY [facility] Last Admin: 11/21/16 08:48 Dose: 200 mg Magnesium Oxide (Magnesium Oxide) 200 mg PO DAILY [facility] Last Admin: 12/18/16 09:40 Dose: Not Given Medroxyprogesterone Acetate (Provera) 10 mg PO DAILY [facility] Last Admin: 11/24/16 18:46 Dose: 10 mg Metoprolol Succinate (Toprol Xl) 100 mg PO DAILY [facility] Last Admin: 11/13/16 08:40 Dose: 100 mg Metoprolol Succinate (Toprol Xl) 50 mg PO DAILY [facility] Metoprolol Succinate (Toprol Xl) 50 mg PO DAILY [facility] Last Admin: 11/30/16 08:55 Dose: 25 mg Metoprolol Succinate (Toprol Xl) 25 mg PO DAILY [facility] Last Admin: 12/13/16 07:43 Dose: 25 mg Metoprolol Succinate (Toprol Xl) 25 mg PO ONETIME ONE Stop: 12/01/16 11:16 Last Admin: 12/01/16 12:03 Dose: 25 mg Metoprolol Succinate (Toprol Xl) 50 mg PO DAILY [facility] Last Admin: 12/15/16 07:29 Dose: 50 mg Metoprolol Succinate (Toprol Xl) Confirm Administered Dose 25 mg .ROUTE .STK- MED ONE Stop: 12/13/16 08:20 Last Admin: 12/13/16 08:25 Dose: 25 mg Metoprolol Succinate (Toprol Xl) 25 mg PO DAILY [facility] Last Admin: 12/18/16 09:41 Dose: Not Given Nitroglycerin (Nitrostat) 0.4 mg SL ASDIRECTED PRN PRN Reason: Chest Pain Ondansetron HCl (Zofran Odt) 4 mg PO Q8H PRN PRN Reason: Nausea/Vomiting Last Admin: 12/12/16 02:53 Dose: 4 mg Ondansetron HCl (Zofran) 4 mg IVPUSH Q6H PRN PRN Reason: Nausea/Vomiting Ondansetron HCl (Zofran) Confirm Administered Dose 4 mg .ROUTE .STK-MED ONE Stop: 11/30/16 19:47 Last Admin: 11/30/16 19:45 Dose: 4 mg Pantoprazole Sodium (Protonix) 40 mg PO BIDAC [facility] Last Admin: 11/17/16 20:49 Dose: 40 mg Pantoprazole Sodium (Protonix) 40 mg PO 0700,1600 [facility] Last Admin: 12/07/16 08:49 Dose: 40 mg Pantoprazole Sodium (Protonix) Confirm Administered Dose 40 mg .ROUTE .[facility] ONE Stop: 12/02/16 16:27 Last Admin: 12/02/16 17:00 Dose: Not Given Pantoprazole Sodium (Protonix) Confirm Administered Dose 40 mg .ROUTE .[facility] ONE Stop: 12/06/16 17:21 Last Admin: 12/06/16 17:52 Dose: Not Given Pantoprazole Sodium (Protonix) 40 mg PO DAILY@0700,1600 [facility] Last Admin: 12/18/16 16:25 Dose: Not Given Potassium Chloride (Klor-Con M20) 20 meq PO BID [facility] Last Admin: 11/10/16 21:03 Dose: Not Given Potassium Chloride (Klor-Con M20) 20 meq PO BID@0800,1700 [facility] Last Admin: 11/24/16 07:41 Dose: 20 meq Potassium Chloride (Klor-Con 10) 10 meq PO BID [facility] Last Admin: 11/29/16 08:06 Dose: 10 meq Potassium Chloride (Klor-Con 10) 10 meq PO DAILY [facility] Last Admin: 12/18/16 09:40 Dose: Not Given Scopolamine (Transderm-Scop) Confirm Administered Dose 1.5 mg .ROUTE .[facility] ONE Stop: 12/18/16 20:13 Scopolamine (Transderm-Scop) 1.5 mg TRDERM Q72H PRN PRN Reason: secretions Simethicone (Simethicone) 80 mg PO BID [facility] Last Admin: 12/18/16 19:53 Dose: Not Given Sodium Chloride (Saline Flush) 10 ml FLUSH BID [facility] Last Admin: 11/24/16 15:32 Dose: Not Given Sodium Chloride (Saline Flush) 10 ml FLUSH BID [facility] Last Admin: 12/15/16 10:37 Dose: Not Given Tramadol HCl (Ultram) 50 mg PO Q6H PRN PRN Reason: MODERATE PAIN Tramadol HCl (Ultram) 50 mg PO Q6H PRN PRN Reason: moderate pain Last Admin: 12/18/16 04:00 Dose: 50 mg Trimethoprim/Sulfamethoxazole (Septra Ds) 0.5 tab PO BID [facility] Stop: 12/02/16 20:01 Last Admin: 12/02/16 19:42 Dose: 0.5 tab Trimethoprim/Sulfamethoxazole (Septra Ds) 0.5 tab PO BID [facility] Stop: 12/19/16 20:01 Last Admin: 12/18/16 19:51 Dose: Not Given Tuberculin PPD (Aplisol) 5 unit IDERM ONETIME ONE Stop: 11/08/16 13:12 Last Admin: 11/09/16 16:11 Dose: Not Given Tuberculin PPD (Aplisol) 5 unit IDERM ONETIME ONE Stop: 11/09/16 16:14 Last Admin: 11/09/16 16:14 Dose: 5 unit Tuberculin PPD (Aplisol) 5 unit IDERM ONETIME [facility] Warfarin Sodium (Coumadin) 2.5 mg PO DAILY@1800 [facility] Last Admin: 11/12/16 17:58 Dose: 2.5 mg Warfarin Sodium (Coumadin) 2 mg PO DAILY@1800 [facility] Last Admin: 11/13/16 17:19 Dose: 2 mg Warfarin Sodium (Coumadin) 1 mg PO DAILY@1800 [facility] Last Admin: 11/20/16 17:50 Dose: 1 mg Warfarin Sodium (Coumadin) 1.5 mg PO DAILY@1800 [facility] Last Admin: 11/24/16 17:28 Dose: 1.5 mg Warfarin Sodium (Coumadin) 1 mg PO DAILY@1800 [facility] Last Admin: 11/26/16 18:34 Dose: 1 mg Warfarin Sodium (Coumadin) 0.5 mg PO DAILY@1800 [facility] Last Admin: 11/29/16 18:27 Dose: Not Given Warfarin Sodium (Coumadin) 0.5 mg PO DAILY@1800 [facility] Last Admin: 12/02/16 18:58 Dose: 0.5 mg Warfarin Sodium (Coumadin) 0.5 mg PO DAILY@1800 [facility] Stop: 12/06/16 09:00 Last Admin: 12/05/16 17:35 Dose: 0.5 mg *Q Meaningful Use (DIS) - VTE *Q VTE Criteria *Q: VTE Mechanical Contraindications *Q: At Risk for Falls VTE Pharmacological Contraindications *Q: Risk of Bleeding - Stroke *Q Stroke Criteria *Q: - AMI *Q AMI Criteria *Q:
== END 2016-12-18 20:25 | disposition expired | DRG 948 ==
LOC: LB.MS 13:06 → UNDOADMIN 13:25 → LB.MS 13:25 → UNDOADMIN 15:01 → LB.MS 15:01 → UNDOADMIN 12-08 12:00
PROVIDERS: ADMIT Nurse Practitioner Family; ATTEND Nurse Practitioner Family
DX: R53.1 Weakness (principal); K92.2 Gastrointestinal hemorrhage, unspecified; E87.1 Hypo-osmolality and hyponatremia; N39.0 Urinary tract infection, site not specified; D68.9 Coagulation defect, unspecified; I10 Essential (primary) hypertension; I48.2 Chronic atrial fibrillation; Z86.711 Personal history of pulmonary embolism; Z86.718 Personal history of other venous thrombosis and embolism; E11.9 Type 2 diabetes mellitus without complications; Z79.4 Long term (current) use of insulin; I25.10 Atherosclerotic heart disease of native coronary artery without angina pectoris; I25.2 Old myocardial infarction; Z95.5 Presence of coronary angioplasty implant and graft; Z87.440 Personal history of urinary (tract) infections; M19.90 Unspecified osteoarthritis, unspecified site; Z66 Do not resuscitate; R19.7 Diarrhea, unspecified; E87.5 Hyperkalemia; R19.00 Intra-abdominal and pelvic swelling, mass and lump, unspecified site; F43.21 Adjustment disorder with depressed mood; R11.2 Nausea with vomiting, unspecified; Z85.43 Personal history of malignant neoplasm of ovary; Z85.42 Personal history of malignant neoplasm of other parts of uterus; Z88.1 Allergy status to other antibiotic agents; Z91.041 Radiographic dye allergy status; Z88.8 Allergy status to other drugs, medicaments and biological substances; Z91.018 Allergy to other foods; Z91.048 Other nonmedicinal substance allergy status; Z79.82 Long term (current) use of aspirin; Z79.01 Long term (current) use of anticoagulants; Z51.5 Encounter for palliative care
CPT/HCPCS: 36415; 74176; 80048; 80051; 80053; 81001; 82378; 82962; 83735; 83880; 84443; 84484; 85025; 85610; 85730; 86580; 87086; 87088; 87186; 87493; 93005; 97110-GO; 97110-GP; 97116-GP; 97161-GP; 97165-GO; 97530-GO; 97530-GP; 97535-GO; A9270-GY; J1170; J2405; J7040; J7050